=== PATIENT | male | born 1960 | race Caucasian/White ===

== ENCOUNTER 2019-07-21 17:40 | Inpatient (IN) ==
[2019-07-21] MEDS ORDERED: Isovue-370 500 ML BOTTLE IVP ONE (18:21)
--- NOTE | 2019-07-21 18:31 | Emergency Department Note ---
Disposition Clinical Impression: Osteomyelitis of fifth toe of right foot Disposition: Admitted As Inpatient Condition: Fair Referrals: Delphine Taylor CNP [Primary Care Provider] - Forms: ED Satisfaction Letter Time of Disposition: 20:34 General Adult HPI - General Chief complaint: ED Recheck/Abnormal Lab/Rx Stated complaint: Infection right toe Time Seen by Provider: 07/21/19 17:58 Nursing Notes Reviewed: Yes Vital Signs Reviewed: Yes - History of Present Illness Pain Scale: 0 - Related Data Home Medications Medication Instructions Recorded Confirmed Atorvastatin [Lipitor] 80 mg PO HS 07/12/17 07/21/19 Clopidogrel [Plavix] 75 mg PO DAILY 07/12/17 07/21/19 Icosapent Ethyl [Vascepa] 1 gm PO BID 07/12/17 07/21/19 Insulin Glargine,Hum.rec.anlog 40 unit SQ HS 07/12/17 07/21/19 [Lantus Solostar] Lisinopril [Zestril] 20 mg PO DAILY 07/12/17 07/21/19 Pregabalin [Lyrica] 300 mg PO BID 07/12/17 07/21/19 metFORMIN [Glucophage] 1,000 mg PO BIDWM 07/12/17 07/21/19 Previous Rx's Medication Instructions Recorded Sulfamethoxazole/Trimeth DS 1 each PO BID #20 tablet 10/25/17 [Bactrim DS] cephALEXin [Keflex] 500 mg PO QID #40 capsule 02/06/18 Ciprofloxacin HCl [Cipro] 500 mg PO BID #20 tablet 09/10/18 Doxycycline 100 mg PO BID #20 capsule 09/10/18 Allergies Allergy/AdvReac Type Severity Reaction Status Date / Time No Known Allergies Allergy Verified 07/21/19 17:43 Past Medical History - Past Medical History Medical history: Reports: CVA, diabetes, hyperlipidemia, hypertension Surgical history: Reports: no surgical history, LE vascular intervention Psychiatric history: Reports: no psych history - Social History Smoking Status: Current every day smoker Smokeless Tobacco Status: No Alcohol use: Reports: none Drug use: Reports: none Course Vital Signs Temperature 98.2 F 07/21/19 17:44 Pulse Rate 52 07/21/19 17:44 Respiratory Rate 15 07/21/19 17:44 Blood Pressure 168/73 07/21/19 17:44 O2 Sat by Pulse Oximetry 96 07/21/19 17:44 Temperature 98.2 F 07/21/19 19:00 Pulse Rate 56 07/21/19 19:00 Respiratory Rate 16 07/21/19 19:00 Blood Pressure 142/69 07/21/19 19:00 O2 Sat by Pulse Oximetry 97 07/21/19 19:00 Oxygen Delivery Oxygen Delivery Room Air Medical Decision Making - Lab Data Result diagrams: 07/21/19 18:40 07/21/19 18:40 Lab Results 07/21/19 07/21/19 Range/Units 18:40 18:40 WBC 9.0 (4.3-11.1) K/mcL RBC 4.24 (4.19-5.50) M/mcL Hgb 12.9 (12.9-16.9) g/dL Hct 38.0 (37.5-50.1) % MCV 89.6 (83.0-100.0) fL MCH 30.4 (28.0-33.3) pg MCHC 33.9 (31.6-35.5) g/dL RDW 13.3 (11.5-14.5) % Plt Count 326 (140-400) K/mcL MPV 10.7 (9.4-12.4) fL Immature Gran % 0.7 (0-4) % Seg Neutrophils % 65.4 % Lymphocytes % 22.0 % Monocytes % 8.3 % Eosinophils % 2.3 % Basophils % 1.3 % Neutrophils # 5.9 (1.6-8.9) K/mcL Lymphocytes # 2.0 (0.6-4.6) K/mcL Monocytes # 0.7 (0.0-1.3) K/mcL Eosinophils # 0.2 (0.0-0.6) K/mcL Basophils # 0.1 (0.0-0.2) K/mcL Sodium 135 L (136-145) mEq/L Potassium 4.4 (3.5-5.1) mEq/L Chloride 100 (98-107) mEq/L Carbon Dioxide 24 (23-29) mEq/L BUN 13 (6-20) mg/dL Creatinine 0.87 (0.70-1.30) mg/dL Est GFR ( Amer) > 60 (> 60) Est GFR (Non-Af Amer) > 60 (> 60) BUN/Creatinine Ratio 15 (6-26) Glucose 202 H (70-105) mg/dL Calculated Osmolality 286 (280-300) Calcium 8.9 (8.6-10.3) mg/dL Attestation Statement - Attestation Attestation: I examined this patient and my medical decision-making was reviewed with the Resident Physician. I agree with the documented findings, disposition and treatment plan as described except to the extent set forth below. Patient presents to the ED with a concern for osteomyelitis. The patient sees wound care for an infection on his fifth toe of his right foot. He also has an ulcer on his heel. The nurse was concerned that she felt bone and he might have osteomyelitis. 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 Patient states he is currently on antibiotic but he does not know what it is. He has been on it for 12 days. On exam he is in no distress. He has some mild erythema to the entire right fifth digit. Plan. Labs and CT scan. Patient with suspected osteomyelitis. IV antibotics ordered. Will admit. Foot CT 07/21/19 18:21 IMPRESSION: 1. Interval fracture of the distal aspect of the 5th proximal phalanx with question of associated osteolysis. Pathologic fracture with underlying osteomyelitis cannot be excluded in the clinical setting of soft tissue infection of the 5th digit. 2. Subcutaneous edema predominant involving the dorsal soft tissues and extending to involve the 5th digit. No organized fluid collection identified. No subcutaneous gas. 3. Redemonstration of fracture at the middle phalanx of the 3rd toe dating back 2 comparison exam from April 30, 2019. No osseous bridging identified. 4. Mild osteoarthritis. D/ / Chico Benoit MD / Chico Benoit MD Interpreting Provider: Chico Benoit MD
[2019-07-21 18:58] LABS: Basophils # 0.1 K/mcL (0.0-0.2); Basophils % 1.3 %; Eosinophils # 0.2 K/mcL (0.0-0.6); Eosinophils % 2.3 %; Hemoglobin 12.9 g/dL (12.9-16.9); Immature Granulocytes % 0.7 % (0-4); Mean Corpuscular HGB Conc 33.9 g/dL (31.6-35.5); Mean Corpuscular Hemoglobin 30.4 pg (28.0-33.3); Mean Corpuscular Volume 89.6 fL (83.0-100.0); Mean Platelet Volume 10.7 fL (9.4-12.4); Monocytes # 0.7 K/mcL (0.0-1.3); Monocytes % 8.3 %; Neutrophils # 5.9 K/mcL (1.6-8.9); Platelet Count 326 K/mcL (140-400); Red Blood Count 4.24 M/mcL (4.19-5.50); Red Cell Distribution Width 13.3 % (11.5-14.5); Segmented Neutrophils % 65.4 %
[2019-07-21 19:15] LABS: BUN/Creatinine Ratio 15 (6-26); Blood Urea Nitrogen 13 mg/dL (6-20); Calcium 8.9 mg/dL (8.6-10.3); Carbon Dioxide 24 mEq/L (23-29); Chloride 100 mEq/L (98-107); Glucose 202 mg/dL (70-105); Osmolality,Calculated 286 (280-300); Potassium 4.4 mEq/L (3.5-5.1); Sodium 135 mEq/L (136-145); eGFR For African Americans > 60 (> 60); eGFR For Non-African Americans > 60 (> 60)
--- NOTE | 2019-07-21 20:19 | Emergency Department Note ---
Disposition Clinical Impression: Osteomyelitis of fifth toe of right foot Foot osteomyelitis, right Qualifiers: Osteomyelitis type: unspecified type Qualified Code(s): M86.9 - Osteomyelitis, unspecified Disposition: Admitted As Inpatient Condition: Fair Time of Disposition: 20:26 General Adult HPI - General Chief complaint: ED Recheck/Abnormal Lab/Rx Stated complaint: Infection right toe Time Seen by Provider: 07/21/19 17:58 Source: patient Mode of arrival: ambulatory Limitations: no limitations Nursing Notes Reviewed: Yes Vital Signs Reviewed: Yes - History of Present Illness HPI Narrative: Patient is a 59-year-old male with past medical history of diabetes as well as neuropathic ulcers of the foot is currently follows with wound clinic presents for evaluation with concerns for osteomyelitis. The patient has ulcer to the posterior right he will heal as well as to bilateral edges of the fourth right toe. He was undergoing wound clinic earlier this week and the nurse was concerned that she is able to prop the bone with palpation with a wooden stick in the physician was notified, Dr. Loya and he attempted to get the patient an MRI outpatient however he is unable to get the patient in soon enough and is concerned because the patient has been on antibiotics for the past 2 weeks and his wounds are not improving. Patient denies any fevers or chills or nausea or vomiting. Pain Scale: 0 - Related Data Home Medications Medication Instructions Recorded Confirmed Atorvastatin [Lipitor] 80 mg PO HS 07/12/17 07/21/19 Clopidogrel [Plavix] 75 mg PO DAILY 07/12/17 07/21/19 Icosapent Ethyl [Vascepa] 1 gm PO BID 07/12/17 07/21/19 Insulin Glargine,Hum.rec.anlog 40 unit SQ HS 07/12/17 07/21/19 [Lantus Solostar] Lisinopril [Zestril] 20 mg PO DAILY 07/12/17 07/21/19 Pregabalin [Lyrica] 300 mg PO BID 07/12/17 07/21/19 metFORMIN [Glucophage] 1,000 mg PO BIDWM 07/12/17 07/21/19 Previous Rx's Medication Instructions Recorded Sulfamethoxazole/Trimeth DS 1 each PO BID #20 tablet 10/25/17 [Bactrim DS] cephALEXin [Keflex] 500 mg PO QID #40 capsule 02/06/18 Ciprofloxacin HCl [Cipro] 500 mg PO BID #20 tablet 09/10/18 Doxycycline 100 mg PO BID #20 capsule 09/10/18 Allergies Allergy/AdvReac Type Severity Reaction Status Date / Time No Known Allergies Allergy Verified 07/21/19 17:43 All systems ED: reviewed and negative except as stated. Review of Systems: As Per HPI Constitutional: Denies: fever, chills Musculoskeletal: Reports: other (foot wounds). Denies: back pain, neck pain Past Medical History - Past Medical History Attestation: Yes The following information was validated with the patient. Medical history: Reports: CVA, diabetes, hyperlipidemia, hypertension Surgical history: Reports: no surgical history, LE vascular intervention Psychiatric history: Reports: no psych history - Social History Smoking Status: Current every day smoker Smokeless Tobacco Status: No Alcohol use: Reports: none Drug use: Reports: none Physical Exam CONSTITUTIONAL: Well-appearing; well-nourished; A&O X 3, in no apparent distress HEAD: Normocephalic; atraumatic EYES: PERRL, no scleral icterus NOSE: The nose is normal in appearance without rhinorrhea NECK: No JVD or distended neck veins RESP: Normal chest excursion with respiration; breath sounds clear and equal bilaterally; no wheezes, rhonchi, or rales CARD: Regular rhythm, without murmurs, rub or gallop ABD: Non-distended; non-tender, soft, without rigidity, rebound or guarding,no pulsatile mass CHEST: No pain with palpation SKIN: Normal for age and race; warm and dry without diaphoresis ; no apparent lesions EXTREMITIES: Pulses are 2 plus and equal times 4 extremities, no peripheral edema or calf muscle pain. Ulcers to the heel of the posterior right foot that had no surrounding erythema or drainage. Patient also has ulceration to the medial aspect of the fourth toe on the right foot with no active drainage some mild surrounding erythema and no obvious bone showing at this time. - General General appearance: alert, in no apparent distress Course Course Narrative: Patient is failing outpatient antibiotics over the past 2 weeks which she does not recall the name of and I am having difficulty finding these antibiotics in the medical record. Patient will undergo CT scan this evening for evaluation for approximately is however he regardless and she is failing outpatient antibiotics need to come in for IV antibiotics and an MRI for further evaluation. - Reevaluation(s) Reevaluation #1: Patient admitted to the hospitalists with antibiotic started fossa myelitis with plans for an MRI to evaluate further and they will consult podiatry in the morning for evaluation and discussed with the patient he agrees with that plan. Vital Signs Temperature 98.2 F 07/21/19 17:44 Pulse Rate 52 07/21/19 17:44 Respiratory Rate 15 07/21/19 17:44 Blood Pressure 168/73 07/21/19 17:44 O2 Sat by Pulse Oximetry 96 07/21/19 17:44 Temperature 98.2 F 07/21/19 19:00 Pulse Rate 45 07/21/19 21:21 Respiratory Rate 16 07/21/19 21:21 Blood Pressure 142/65 07/21/19 21:21 O2 Sat by Pulse Oximetry 100 07/21/19 21:21 Oxygen Delivery Oxygen Delivery Room Air Medical Decision Making - Medical Records Medical records reviewed: Yes I reviewed the patient's medical records. - Lab Data Lab results reviewed: Yes I reviewed the patient's lab results. Result diagrams: 07/21/19 18:40 07/21/19 18:40 Lab Results 07/21/19 07/21/19 Range/Units 18:40 18:40 WBC 9.0 (4.3-11.1) K/mcL RBC 4.24 (4.19-5.50) M/mcL Hgb 12.9 (12.9-16.9) g/dL Hct 38.0 (37.5-50.1) % MCV 89.6 (83.0-100.0) fL MCH 30.4 (28.0-33.3) pg MCHC 33.9 (31.6-35.5) g/dL RDW 13.3 (11.5-14.5) % Plt Count 326 (140-400) K/mcL MPV 10.7 (9.4-12.4) fL Immature Gran % 0.7 (0-4) % Seg Neutrophils % 65.4 % Lymphocytes % 22.0 % Monocytes % 8.3 % Eosinophils % 2.3 % Basophils % 1.3 % Neutrophils # 5.9 (1.6-8.9) K/mcL Lymphocytes # 2.0 (0.6-4.6) K/mcL Monocytes # 0.7 (0.0-1.3) K/mcL Eosinophils # 0.2 (0.0-0.6) K/mcL Basophils # 0.1 (0.0-0.2) K/mcL Sodium 135 L (136-145) mEq/L Potassium 4.4 (3.5-5.1) mEq/L Chloride 100 (98-107) mEq/L Carbon Dioxide 24 (23-29) mEq/L BUN 13 (6-20) mg/dL Creatinine 0.87 (0.70-1.30) mg/dL Est GFR ( Amer) > 60 (> 60) Est GFR (Non-Af Amer) > 60 (> 60) BUN/Creatinine Ratio 15 (6-26) Glucose 202 H (70-105) mg/dL Calculated Osmolality 286 (280-300) Calcium 8.9 (8.6-10.3) mg/dL - Radiology Data Radiology results reviewed: Yes I reviewed the patient's radiology results. Foot CT 07/21/19 18:21 IMPRESSION: 1. Interval fracture of the distal aspect of the 5th proximal phalanx with question of associated osteolysis. Pathologic fracture with underlying osteomyelitis cannot be excluded in the clinical setting of soft tissue infection of the 5th digit. 2. Subcutaneous edema predominant involving the dorsal soft tissues and extending to involve the 5th digit. No organized fluid collection identified. No subcutaneous gas. 3. Redemonstration of fracture at the middle phalanx of the 3rd toe dating back 2 comparison exam from April 30, 2019. No osseous bridging identified. 4. Mild osteoarthritis. D/ / Chico Benoit MD / Chico Benoit MD Interpreting Provider: Chico Benoit MD
[2019-07-21] MEDS ORDERED: cefTRIAXone 2,000 MG in Water for inj. (sterile) 20 ML IVP ONE (20:24)
[2019-07-21] MEDS: 0.9 % Sodium Chloride 1,000 ML IVC SCH (23:30)
[2019-07-22] MEDS ORDERED: Ondansetron 4 MG/2 ML VIAL IVP PRN (02:15)
[2019-07-22] MEDS ORDERED: D5% in Water 1,000 ML IVC PRN ×3 (02:15→16:18)
[2019-07-22] MEDS ORDERED: Dextrose Gel 15 GM/37.5 ML TUBE PO PRN ×6 (02:15→16:18)
[2019-07-22] MEDS ORDERED: Naloxone 0.4 MG/ML INJ IVP PRN (02:15)
[2019-07-22] MEDS ORDERED: traMADol 50 MG TABLET PO PRN (02:15)
[2019-07-22] MEDS ORDERED: Acetaminophen 325 MG TABLET PO PRN (02:15)
[2019-07-22] MEDS ORDERED: *HR* Dextrose 50 % in Water (Syg) 50 ML SYRINGE IVP PRN ×3 (02:15→16:18)
--- NOTE | 2019-07-22 02:57 | Internal Med History&Physical ---
Date of Encounter: 07/22/19 Time of Encounter: 01:00 Internal Medicine - H&P: HPI Chief complaint: foot ulcer/infection Admitted From: Emergency Dept Plans for Post Hospital Care: Home History of present illness: Mr. Santana is a 59 year old male who presents to the ER under the advice of his wound care physician and nurse. He was seen by the quality review specialist yesterday and then advised by his wound care nurse to go to ER today for IV antibiotics, workup, and likely surgical intervention. He therefore presents the ER for further evaluation. Workup in ER revealed normal labs but imaging was concerning for possible osteomyelitis and pathologic fifth toe fracture. He was therefore admitted to hospitalist service with podiatry consultation. Upon my assessment of the patient, patient is resting in bed comfortably. He denies any complaints. He denies having any fevers, chills, or night sweats. His left foot is in a cast and has been recasted multiple times over the last year. He does have an open wound to his right fifth toe and has small ulceration. He has essentially no to minimal sensation of his feet bilaterally. He is diabetic and has been poorly controlled for years. He states he's been following with wound care clinic as directed. He denies any recent trauma or injury to his feet that he is aware of. Past Med Surg Social Fam HX - Past Medical History Attestation: Yes The following information was validated with the patient. Source: patient, old records reviewed Medical history: coronary artery disease, CVA, diabetes, hyperlipidemia, hypertension, myocardial infarction Psychiatric history: no psych history - Past Surgical History Surgical History: angioplasty/stent, LE vascular intervention Additional surgical history: toe amputation - Social History Smoking Status: Current every day smoker Smokeless Tobacco Status: No Alcohol use: none Drug use: none Current living situation: Home, With Family Activity Level: Independent ambulation Recent Out of Country Travel Within the Last 8 Weeks: No - Family History Mother Hx Family Endocrine Disorder: Yes (DM) Father Living Status: Hx Family Cancer: Yes (prostate) Internal Medicine - H&P: Meds Atorvastatin [Lipitor] 80 mg PO HS 07/12/17 [History] Clopidogrel [Plavix] 75 mg PO DAILY 07/12/17 [History] Icosapent Ethyl [Vascepa] 1 gm PO BID 07/12/17 [History] Insulin Glargine,Hum.rec.anlog [Lantus Solostar] 40 unit SQ HS 07/12/17 [History] Lisinopril [Zestril] 20 mg PO DAILY 07/12/17 [History] Pregabalin [Lyrica] 300 mg PO BID 07/12/17 [History] metFORMIN [Glucophage] 1,000 mg PO BIDWM 07/12/17 [History] Sulfamethoxazole/Trimeth DS [Bactrim DS] 1 each PO BID #20 tablet 10/25/17 [Rx] cephALEXin [Keflex] 500 mg PO QID #40 capsule 02/06/18 [Rx] Ciprofloxacin HCl [Cipro] 500 mg PO BID #20 tablet 09/10/18 [Rx] Doxycycline 100 mg PO BID #20 capsule 09/10/18 [Rx] Allergy/AdvReac Type Severity Reaction Status Date / Time No Known Allergies Allergy Verified 07/21/19 17:43 - Constitutional Constitutional: no chills, no fever(s), no night sweats - EENT Eyes: no blurry vision, no change in vision Ears: no ear pain, no tinnitus Nose, mouth and throat: no nasal congestion, no sinus pressure, no sore throat - Cardiovascular Cardiovascular ROS IM: no chest pain, no dyspnea, no orthopnea, no paroxysmal nocturnal dyspnea - Respiratory Respiratory: no cough, no chest congestion, no excessive phlegm production - Gastrointestinal Gastrointestinal: no abdominal pain, no diarrhea, no hematemesis, no hematochezia, no vomiting - Genitourinary Genitourinary ROS male: no dysuria, no flank pain - Musculoskeletal Musculoskeletal ROS IM: no arthralgias, no back pain - Integumentary Integumentary IM: no rash, no jaundice - Neurological Neurological ROS: numbness (feet), no dizziness, no focal weakness, no frequent falls, no headache(s) - Psychiatric Psychiatric: no anxiety, no depression - Endocrine Endocrine IM: no polydipsia, no polyphagia, no polyuria - Allergic/Immunologic Allergic/Immunologic: no GI upset with certain foods - Constitutional Vitals: Temp Pulse Resp BP Pulse Ox 98.1 F 47 18 170/84 95 07/22/19 02:32 07/22/19 02:32 07/22/19 02:32 07/22/19 02:32 07/22/19 02:32 General appearance: Present: cooperative, A&O X 3, pleasant, no acute distress, answers questions appropriately Exam: see below - Head Head exam: Present: atraumatic, normal inspection - Eye Eye exam: Present: EOMI, PERRL. Absent: scleral icterus Pupils: Present: normal accommodation - ENT ENT exam: Present: mucous membranes dry, normal exam, normal oropharynx - Neck Neck exam general surgery: Present: full ROM, supple, trachea midline. Absent: lymphadenopathy, tenderness, nuchal rigidity, thyromegaly - Respiratory Respiratory exam: Present: CTAB. Absent: chest wall tenderness, rales, rhonchi, wheezes - Cardiovascular Cardiovascular exam: Present: bradycardia, distant heart sounds, +S1, +S2, systolic murmur. Absent: diastolic murmur Additional comments: HR 50's - GI/Abdominal GI/Abdominal exam: Present: normal bowel sounds, soft. Absent: guarding, hepatomegaly, mass, rebound, splenomegaly, tenderness - Extremities Exam Extremities exam: Present: full ROM, normal capillary refill, warm, radial pulses palpable and symmetrical. Absent: calf tenderness, tenderness Additional comments: left foot casted; right 5th toe with ulceration, swelling, and mild redness between 4th/5th digits - Back Exam Back exam: Absent: CVA tenderness (L), CVA tenderness (R) - Neurological Exam Neurological exam: Present: alert, CN II-XII intact, motor sensory deficit (minimal to no sensation in feet), strengths equal and symetr throughout - Psychiatric Psychiatric exam: Present: flat affect - Skin Skin exam: Present: dry, warm. Absent: rash Internal Med - H&P Results - Labs CBC & Chem 7: 07/21/19 18:40 07/21/19 18:40 Labs: Short CBC 07/21/19 Range/Units 18:40 WBC 9.0 (4.3-11.1) K/mcL Hgb 12.9 (12.9-16.9) g/dL Hct 38.0 (37.5-50.1) % Plt Count 326 (140-400) K/mcL Neutrophils # 5.9 (1.6-8.9) K/mcL BMP 07/21/19 18:40 Sodium 135 L Potassium 4.4 Chloride 100 Carbon Dioxide 24 BUN 13 Creatinine 0.87 Glucose 202 H Calcium 8.9 - Impressions ITS Impressions Foot CT 07/21/19 18:21 IMPRESSION: 1. Interval fracture of the distal aspect of the 5th proximal phalanx with question of associated osteolysis. Pathologic fracture with underlying osteomyelitis cannot be excluded in the clinical setting of soft tissue infection of the 5th digit. 2. Subcutaneous edema predominant involving the dorsal soft tissues and extending to involve the 5th digit. No organized fluid collection identified. No subcutaneous gas. 3. Redemonstration of fracture at the middle phalanx of the 3rd toe dating back 2 comparison exam from April 30, 2019. No osseous bridging identified. 4. Mild osteoarthritis. D/ / Chico Benoit MD / Chico Benoit MD Interpreting Provider: Chico Benoit MD - Assessment and Plan (1) Foot osteomyelitis, right Current Visit: Yes Status: Suspected Assessment and plan: 1. Blood cultures obtained. 2. Continue IV Vancomycin and Zosyn. 3. Consult Podiatry. 4. May need MRI imaging after podiatry evaluation. Qualifiers: Osteomyelitis type: unspecified type Qualified Code(s): M86.9 - Osteomyelitis, unspecified (2) CAD (coronary artery disease) Current Visit: Yes Status: Chronic Assessment and plan: 1. Monitor on telemetry and obtain baseline EKG. 2. Resume home meds as appropriate. 3. No current symptoms or complaints to suggest angina. Qualifiers: Coronary Disease-Associated Artery/Lesion type: [place] artery [place] vs. transplanted heart: [place] heart Associated angina: without angina Qualified Code(s): I25.10 - Atherosclerotic heart disease of [place] coronary artery without angina pectoris (3) Diabetic ulcer of foot associated with diabetes mellitus due to underlying condition, limited to breakdown of skin Current Visit: Yes Status: Chronic Assessment and plan: 1. Will place on SSI and basal insulin. 2. Monitor glucose and adjust insulin accordingly. 3. Podiatry consult, imaging, and treatment as above. Qualifiers: Diabetic foot ulcer location: toe Laterality: right Qualified Code(s): E08.621 - Diabetes mellitus due to underlying condition with foot ulcer; L97.511 - Non-pressure chronic ulcer of other part of right foot limited to breakdown of skin (4) Diabetes 1.5, managed as type 2 Current Visit: Yes Status: Chronic Assessment and plan: 1. SSI and basal insulin per home dosing. 2. Monitor glucose and adjust accordingly. (5) DVT prophylaxis Current Visit: Yes Status: Acute Assessment and plan: 1. Heparin SQ.
[2019-07-22 03:26] LABS: Basophils # 0.1 K/mcL (0.0-0.2); Basophils % 1.4 %; Eosinophils # 0.3 K/mcL (0.0-0.6); Eosinophils % 3.2 %; Hematocrit 37.7 % (37.5-50.1); Immature Granulocytes % 0.7 % (0-4); Lymphocytes # 2.8 K/mcL (0.6-4.6); Lymphocytes % 33.5 %; Mean Corpuscular HGB Conc 34.5 g/dL (31.6-35.5); Mean Corpuscular Hemoglobin 30.7 pg (28.0-33.3); Mean Corpuscular Volume 89.1 fL (83.0-100.0); Mean Platelet Volume 10.9 fL (9.4-12.4); Monocytes # 0.9 K/mcL (0.0-1.3); Monocytes % 10.6 %; Neutrophils # 4.3 K/mcL (1.6-8.9); Platelet Count 329 K/mcL (140-400); Red Blood Count 4.23 M/mcL (4.19-5.50); Red Cell Distribution Width 13.2 % (11.5-14.5); Segmented Neutrophils % 50.6 %; White Blood Count 8.4 K/mcL (4.3-11.1)
[2019-07-22 03:33] LABS: INR 1.1; Prothrombin Time 12.6 Seconds (9.4-12.1)
[2019-07-22 03:36] LABS: Activated Partial Thrombo Time 33.7 Seconds (26.0-36.0)
[2019-07-22 03:46] LABS: Alanine Aminotransferase 17 Units/L (7-52); Albumin 3.7 g/dL (3.5-5.7); Albumin/Globulin Ratio 1.3 (1.1-2.2); Alkaline Phosphatase 77 Units/L (34-104); Aspartate Amino Transferase 16 Units/L (13-39); BUN/Creatinine Ratio 15 (6-26); Bilirubin,Total 0.5 mg/dL (0.3-1.0); Blood Urea Nitrogen 11 mg/dL (6-20); Carbon Dioxide 23 mEq/L (23-29); Chloride 105 mEq/L (98-107); Globulin 2.8 g/dL (2.4-3.5); Glucose 100 mg/dL (70-105); Magnesium 1.7 mg/dL (1.6-2.6); Osmolality,Calculated 279 (280-300); Sodium 135 mEq/L (136-145); Total Protein 6.5 g/dL (6.4-8.9); eGFR For African Americans > 60 (> 60); eGFR For Non-African Americans > 60 (> 60)
[2019-07-22] MEDS: Insulin LISPRO 300 UNITS/3 ML VIAL SQ SCH ×4 (08:12→22:10)
[2019-07-22] MEDS: Piperacillin/Tazobactam 3.375 GM in 0.9 % Sodium Chloride Mini Bag 100 ML IVPB SCH ×3 (08:27→23:36)
[2019-07-22] MEDS: Pregabalin 75 MG CAPSULE PO SCH ×2 (08:28→22:11)
[2019-07-22] MEDS: *HR* Heparin 5,000 UNIT/ML VIAL SQ SCH ×2 (08:28→18:56)
[2019-07-22] MEDS: Lisinopril 20 MG TABLET PO SCH (08:28)
[2019-07-22] MEDS: 0.9 % Sodium Chloride 1,000 ML IVC SCH ×2 (08:32→22:11)
[2019-07-22 09:16] LABS: C-Reactive Protein < 5 mg/L (Less than 10)
[2019-07-22 10:54] LABS: Estimated Average Glucose 163 mg/dl
--- NOTE | 2019-07-22 11:16 | Event Note ---
Date of Encounter: 07/22/19 Time of Encounter: 11:14 Patient lying down in bed. Comfortable. To be seen by podiatry. CT of the right foot shows possible osteomyelitis and patient is receiving IV antibiotics. Continue current plan of care. ESR and CRP are not significantly elevated. Consider MRI.
--- NOTE | 2019-07-22 11:17 | Podiatry Consult Note ---
Date of Encounter: 07/22/19 Time of Encounter: 11:00 Assessment and Plan (1) Osteomyelitis of fifth toe of right foot Current visit: Yes Status: Acute ASSESSMENT: Ulceration of the 5th digit of the right foot with associated osteomyelitis PLAN: Assessment complete at bedside CT reviewed- osteomyelitis of the proximal phalynx of the 5th digit WBC 9.0, ESR 20 and CRP <5 A1c 7.3 After a thorough discussion with the patient decision was made to amputate the right 5th digit Surgical procedure discussed as well as expected outcomes and recovery Discussed all risk factors including but not limited to continued infection, return to surgery, loss of blood, pain, nerve damage, blood clot, pneumonia, partial loss of foot, loss of limb, sepsis, . Verbalizes complete understanding and voices no concerns All questions were answered at bedside Consent was obtained and placed to chart. Continue with IV antibiotics vanc and zosyn at this time Toe was cleansed with saline Painted with betadine adaptic 4x4 and kerlix bulk dressing applied Ankle brachial index - Right 0.54 Spoke with Man who recommended Tcp02 (ordered) and if these are consistent with healing to proceed with surgery and vascular would follow post op to optimize blood flow. Consult vascular to optimize bloodflow- call was completed already Foot CT 07/21/19 18:21 IMPRESSION: 1. Interval fracture of the distal aspect of the 5th proximal phalanx with question of associated osteolysis. Pathologic fracture with underlying osteomyelitis cannot be excluded in the clinical setting of soft tissue infection of the 5th digit. 2. Subcutaneous edema predominant involving the dorsal soft tissues and extending to involve the 5th digit. No organized fluid collection identified. No subcutaneous gas. 3. Redemonstration of fracture at the middle phalanx of the 3rd toe dating back 2 comparison exam from April 30, 2019. No osseous bridging identified. 4. Mild osteoarthritis. D/ / Chico Benoit MD / Chico Benoit MD Interpreting Provider: Chico Benoit MD History of Present Illness HPI: Mr. Santana is a 59 year old male who presents to the ER following his wound care visit in [place]. He is followed by in [place]. Patient was sent to the ED for evaluation and IV antibiotics and possible surgical intervention. Labwork, blood cultures and imaging was obtained in the ED. CT scan concerning for possible osteomyelitis and pathologic fifth toe fracture. Patient was started on vanc and zosyn and admitted for further evaluation Patient resting comfortably in bed on arrival He denies any complaints. He denies having any fevers, chills, or night sweats. Denies any pain. Patient is completely neuropathic and without sensation to his feet. His left foot is in a cast and has been recasted multiple times over the last year for charcot management of the left foot. He does have an open wound to his right fifth toe and has small ulceration. Patient reports he thinks his glucose is under decent control with a a1c "around 7" states that due to his stroke and left sided wea kness he is unable to check his glucose easily. He states he's been following with wound care clinic as directed. He denies any recent trauma or injury to his feet that he is aware of. PMH of DM with neuropathy and charcot arthropathy, DVT, CVA with residual left sided weakness and 1 PPD current smoking history Past Med Surg Social Fam HX - Past Medical History Medical history: coronary artery disease, CVA, diabetes, hyperlipidemia, hypertension, myocardial infarction Psychiatric history: no psych history - Past Surgical History Surgical History: angioplasty/stent, LE vascular intervention Additional surgical history: toe amputation - Social History Smoking Status: Current every day smoker Smokeless Tobacco Status: No Alcohol use: none Drug use: none - Family History Mother Hx Family Endocrine Disorder: Yes (DM) Father Living Status: Hx Family Cancer: Yes (prostate) Medications and Allergies Atorvastatin [Lipitor] 80 mg PO HS 07/12/17 [History] Clopidogrel [Plavix] 75 mg PO DAILY 07/12/17 [History] Icosapent Ethyl [Vascepa] 1 gm PO BID 07/12/17 [History] Insulin Glargine,Hum.rec.anlog [Lantus Solostar] 40 unit SQ HS 07/12/17 [History] Lisinopril [Zestril] 20 mg PO DAILY 07/12/17 [History] Pregabalin [Lyrica] 300 mg PO BID 07/12/17 [History] metFORMIN [Glucophage] 1,000 mg PO BIDWM 07/12/17 [History] Sulfamethoxazole/Trimeth DS [Bactrim DS] 1 each PO BID #20 tablet 10/25/17 [Rx] cephALEXin [Keflex] 500 mg PO QID #40 capsule 02/06/18 [Rx] Ciprofloxacin HCl [Cipro] 500 mg PO BID #20 tablet 09/10/18 [Rx] Doxycycline 100 mg PO BID #20 capsule 09/10/18 [Rx] Allergy/AdvReac Type Severity Reaction Status Date / Time No Known Allergies Allergy Verified 07/21/19 17:43 All Systems Reviewed: as per HPI Physical Exam - Constitutional Vitals: Temp Pulse Resp BP Pulse Ox 97.8 F 83 18 156/75 99 07/22/19 11:08 07/22/19 11:08 07/22/19 11:08 07/22/19 11:08 07/22/19 11:08 Exam: CONSTITUTIONAL: awake alert and oriented VASCULAR: non palpable pulses dp/pt , foot warm toes to tibia, no calf pain with manual compression, cap refill <3 seconds NEUROLOGICAL: absent sensation to light and moderate touch. There is a complete loss of protective sensation MUSCULOSKELETAL: muscle strength 5/5 and equal bilaterally SKIN: There are 2 small open ulcerations to the dorsal aspect of toe #5 right, there is associated edema erythema and warmth of toe. There is mild erythema to the dorsal aspect of the right foot. There is scaling of the skin surrounding the 5th digit. There is scant yellow purulent drainage. There are no other open ulcerations noted to the foot. Results - Labs Result Diagrams: 07/22/19 02:47 07/22/19 02:47 Labs: Abnormal lab results ESR 20 mm/hr (0-10) H 07/22/19 02:47 PT 12.6 Seconds (9.4-12.1) H 07/22/19 02:47 Sodium 135 mEq/L (136-145) L 07/22/19 02:47 Glucose 202 mg/dL (70-105) H 07/21/19 18:40 POC Glucose 113 mg/dL (70-99) H 07/22/19 07:07 Hemoglobin A1c 7.3 % (-5.6) H 07/22/19 02:47 Calculated Osmolality 279 (280-300) L 07/22/19 02:47 H & H 07/21/19 07/22/19 Range/Units 18:40 02:47 Hgb 12.9 13.0 (12.9-16.9) g/dL Hct 38.0 37.7 (37.5-50.1) % All other labs normal. Consult Discharge Plan - Plan Referrals: Delphine Taylor, JAKE [Primary Care Provider] -
--- NOTE | 2019-07-22 14:49 | Electrocardiograph Report ---
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
--- NOTE | 2019-07-22 16:29 | Vascular/Endovasc Consult Note ---
Date of Encounter: 07/22/19 Time of Encounter: 16:25 Assessment and Plan (1) Diabetes 1.5, managed as type 2 Current Visit: Yes Status: Chronic Patient has chronic diabetes. (2) Peripheral angiopathy Current Visit: Yes Status: Chronic Known peripheral vascular occlusive disease. Ankle brachial index is 0.54 on the right. Plan on antrum and possible right lower extremity endovascular intervention tomorrow morning. (3) Tobacco abuse Current Visit: No Status: Chronic Patient has chronic tobacco abuse (4) Osteomyelitis of fifth toe of right foot Current Visit: Yes Status: Acute CT scan suggests osteomyelitis of right foot. Ankle-brachial index is diminished. Plan on angiography and possible endovascular intervention tomorrow morning. - History of Present Illness Consult date: 07/22/19 Consult reason: PAD/right foot wound possible osteomyelitis Chief complaint: Nonhealing right foot wound possible bone infection History of present illness: Mr. Santana is a 59 year old male Who was admitted via the emergency room. This patient has a long and complicated history but essentially was found to have a deteriorating right fifth toe wound. He has been treated via the [place] wound clinic. He was advised by the staff there to seek further attention and care for intravenous antibiotics. When he was seen in the emergency room a CT scan was performed which was suggestive of osteomyelitis with other pathological fractures. Empiric intravenous vancomycin and Zosyn antibiotics were prescribed. The patient was then admitted with podiatry intending to proceed on with a right fifth toe amputation today. An ankle brachial index was obtained and demonstrated an KASEY of only 0.54 on the right. Therefore vascular surgery was asked to see the patient in an attempt to augment vascular flow. The patient's left foot has a pressure ulcer and he is in a cast which has been changed multiple times over the past year or more for care of this wound. The patient had suffered a right hemispheric stroke on July 08, 2017. This left him with a dense left hemiplegia. He essentially has no use of the left upper extremity and minimal use of the left lower extremity. The patient has been evaluated in the past at [facility] for vascular issues. He states about [address] Elam performed an angiogram but was unable to pass a wire through blockage in the right lower extremity. At that time the angiogram was performed because of lifestyle limiting claudication. He also is followed on a routine basis with yearly carotid artery duplex scans. Past Med Surg Social Fam HX - Past Medical History Medical history: coronary artery disease, CVA (July 2017 with right hemispheric stroke), diabetes, hyperlipidemia, hypertension, myocardial infarction Psychiatric history: no psych history - Past Surgical History Surgical History: angioplasty/stent, LE vascular intervention Additional surgical history: toe amputation - Social History Smoking Status: Current every day smoker Smokeless Tobacco Status: No Alcohol use: none Drug use: none - Family History Mother Hx Family Endocrine Disorder: Yes (DM) Father Living Status: Hx Family Cancer: Yes (prostate) Medications and Allergies Atorvastatin [Lipitor] 80 mg PO HS 07/12/17 [History] Clopidogrel [Plavix] 75 mg PO DAILY 07/12/17 [History] Icosapent Ethyl [Vascepa] 1 gm PO BID 07/12/17 [History] Insulin Glargine,Hum.rec.anlog [Lantus Solostar] 40 unit SQ HS 07/12/17 [History] Lisinopril [Zestril] 20 mg PO DAILY 07/12/17 [History] Pregabalin [Lyrica] 300 mg PO BID 07/12/17 [History] metFORMIN [Glucophage] 1,000 mg PO BIDWM 07/12/17 [History] Sulfamethoxazole/Trimeth DS [Bactrim DS] 1 each PO BID #20 tablet 10/25/17 [Rx] cephALEXin [Keflex] 500 mg PO QID #40 capsule 02/06/18 [Rx] Ciprofloxacin HCl [Cipro] 500 mg PO BID #20 tablet 09/10/18 [Rx] Doxycycline 100 mg PO BID #20 capsule 09/10/18 [Rx] Allergy/AdvReac Type Severity Reaction Status Date / Time No Known Allergies Allergy Verified 07/21/19 17:43 All Systems Review: The remainder of the systems were reviewed and are negative Exam Vital Signs, Last 4 Hours Temp Pulse Resp BP Pulse Ox 07/22/19 16:05 97.8 F 50 18 151/66 96 General: Present: Conversant, No Apparent Distress HEENT: Present: Atraumatic, Normocephaly, Trachea midline Neck: Absent: JVD, Left Carotid bruit, Right Carotid bruit, Tracheal deviation Cardiac: Present: Reg Rate and Rhythm, Normal S1 and S2, No Murmur Lungs: Present: Normal Breath Sounds Neuro: Present: Alert and responsive, Cranial nerves grossly intact, Other (Dense left upper extremity paralysis with flexion contracture at left elbow and left wrist. Left lower extremity is weak and has a cast involving the foot ankle and calf region in position.) Abdomen: Present: Soft, Non-tender. Absent: Masses Vascular: Present: Capillary refill delayed (In right lower extremity), Pulse, absent (Bilateral popliteal pulses are absent. No palpable right ankle pulses.), Pulse, diminished (Diminished right femoral pulse.), Pulse, normal (Left femoral pulse), Other (Patient has a fiberglass cast on left lower extremity. Patient has a Kerlix roll dressing on right foot and ankle region.) Skin: Present: No rashes noted on visualized skin Consult Discharge Plan - Plan Referrals: Delphine Taylor CNP [Primary Care Provider] -
[2019-07-22 17:17] LABS: Thyroid Stimulating Hormone 1.35 mcIU/mL (0.340-5.600)
[2019-07-22] MEDS ORDERED: Insulin LISPRO 300 UNITS/3 ML VIAL SQ SCH ×2 (18:00→21:00)
[2019-07-22] MEDS: Insulin DETEMIR 100 UNIT/ML X5UNITS SQ SCH (22:10)
[2019-07-23 01:20] LABS: Basophils # 0.1 K/mcL (0.0-0.2); Basophils % 1.7 %; Eosinophils # 0.3 K/mcL (0.0-0.6); Eosinophils % 3.6 %; Hematocrit 36.3 % (37.5-50.1); Hemoglobin 12.4 g/dL (12.9-16.9); Immature Granulocytes % 0.6 % (0-4); Lymphocytes # 2.6 K/mcL (0.6-4.6); Lymphocytes % 37.2 %; Mean Corpuscular HGB Conc 34.2 g/dL (31.6-35.5); Mean Corpuscular Hemoglobin 30.3 pg (28.0-33.3); Mean Corpuscular Volume 88.8 fL (83.0-100.0); Mean Platelet Volume 11.1 fL (9.4-12.4); Monocytes # 0.7 K/mcL (0.0-1.3); Monocytes % 9.6 %; Neutrophils # 3.3 K/mcL (1.6-8.9); Platelet Count 294 K/mcL (140-400); Red Blood Count 4.09 M/mcL (4.19-5.50); Red Cell Distribution Width 13.3 % (11.5-14.5); Segmented Neutrophils % 47.3 %
[2019-07-23 01:40] LABS: BUN/Creatinine Ratio 14 (6-26); Blood Urea Nitrogen 12 mg/dL (6-20); Calcium 8.4 mg/dL (8.6-10.3); Carbon Dioxide 23 mEq/L (23-29); Chloride 105 mEq/L (98-107); Glucose 188 mg/dL (70-105); Osmolality,Calculated 287 (280-300); Potassium 3.8 mEq/L (3.5-5.1); Sodium 136 mEq/L (136-145); eGFR For African Americans > 60 (> 60); eGFR For Non-African Americans > 60 (> 60)
[2019-07-23] MEDS: *HR* Heparin 5,000 UNIT/ML VIAL SQ SCH ×2 (06:16→17:40)
[2019-07-23] MEDS: Insulin LISPRO 300 UNITS/3 ML VIAL SQ SCH ×4 (08:00→20:56)
[2019-07-23] MEDS: Lisinopril 20 MG TABLET PO SCH (08:19)
[2019-07-23] MEDS: Piperacillin/Tazobactam 3.375 GM in 0.9 % Sodium Chloride Mini Bag 100 ML IVPB SCH ×2 (08:19→17:42)
[2019-07-23] MEDS: Pregabalin 75 MG CAPSULE PO SCH ×2 (08:20→20:55)
[2019-07-23] MEDS ORDERED: *HR* Heparin 10,000 UNIT/10 ML VIAL ONE (09:20)
[2019-07-23] MEDS ORDERED: 0.9 % Sodium Chloride 1,000 ML ONE (09:20)
[2019-07-23] MEDS ORDERED: *HR* Midazolam HCl 2 MG/2 ML VIAL ONE (09:29)
[2019-07-23] MEDS ORDERED: *HR* FentaNYL (PF) 100 MCG/2 ML VIAL ONE (09:29)
--- NOTE | 2019-07-23 09:31 | Pre-Sedation Evaluation ---
Pre-sedation evaluation - Pre-sedation checklist Recent Vitals: Last Vital Signs Temp 97.7 F 07/23/19 06:50 Pulse 51 07/23/19 06:50 Resp 18 07/23/19 06:50 BP 128/76 07/23/19 06:50 Pulse Ox 96 07/23/19 06:50 H&P (including ROS) documented in medical record: Yes Previous reaction to sedatives/anesthetics: No Dietary Status: NPO after Midnight Possible difficult airway: No ASA Classification *see protocol: CLASS III-Severe systemic disease Plan of Care: Pt appropriate candidate for procedure/moderate/conscious sedation, Risks/benefits of procedure/sedation discussed w/ patient/family
--- NOTE | 2019-07-23 10:27 | Electrocardiograph Report ---
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
--- NOTE | 2019-07-23 10:36 | Procedure Note ---
Date of procedure: 07/23/19 Pre-op diagnosis: PD/right toe osteomyelitis Post-op diagnosis: same Procedure: Abdominal aortogram Aortogram with bilateral lower extremity runoff Selective right groin angiogram Anesthesia: MAC Surgeon: Marco Eden Was there an assistant professor of biochemistry present: No Estimated blood loss (cc): 0 Specimen: 0 Condition: stable Disposition: floor (Patient will need bypass graft to revascularize right lower extremity.)
--- NOTE | 2019-07-23 11:04 | Invasive Diagnostic Lab Proc ---
Name: Gamaliel Santana Date of Study: 07/23/2019 Date: 1960 Ht: 185.0 in Medical Record#: [id number] Age: 59 Wt: 112 lb Gender: Male BSA: 2.35 Order #: [id number] BMI: 32.72 Physicians Performing MD: Marco Eden MD, FACS Referring MD: Referring MD: Staff Name Position Time In Thee Mckee RN Monitor Bisi Duran RN New Car Inspector Andrés Leon RT (R) Scrub Indications Peripheral Vasc Disease Right foot oseomyelitis Procedures Performed AORTOGRAPHY W/RUNOFF BILAT S&I Pre-Procedure Checklist Informed consent is complete signed and on chart. H&P is on chart. ID band is on and ID verified with patient. Patient NPO for procedure The procedure was described for the patient and questions were answered. Blood Pressure: 180/92 ECG is on chart. Rhythm: Sinus Bradycardia Plan of Care Patient will tolerate the procedure without complications. Adequate level of comfort will be maintained. Hemodynamics will remain stable Patient will recover from procedure without complications. Respiratory function will be maintained. Cardiac rhythm will remain stable. Patient temperature will be maintained. Patient and/or family have verbalized understanding of the procedure. Patient Education Chief Complaint/Reason for Test: Peripheral angiogram Developmental Category: Adult (18-64 years) Learning Barriers: None Education Needs: Procedure Education Method: Verbal Information Taught: Peripheral angiogram Educational Evaluation: Able to repeat information Intravenous Access Time IV Size Location DC'd Fluid/Drip Rate Units RN 20g 1 /" Patent On Arrival 0.9NaCl Allergies No Known Allergies Vital Signs Time BP Systolic BP Diastolic HR O2 Sats ASA 09:26 AM 09:35 AM 09:50 AM 10:05 AM 09:36 AM 180 92 50 99 09:41 AM 179 88 47 97 09:46 AM 174 86 49 95 09:51 AM 170 88 48 95 09:55 AM 172 105 43 94 10:00 AM 178 88 51 95 10:06 AM 168 84 51 95 10:10 AM 175 85 49 94 10:15 AM 183 90 51 95 10:20 AM 184 87 50 96 10:26 AM 179 71 48 94 10:31 AM 178 83 48 95 10:36 AM 181 93 52 96 10:40 AM 93 25 53 95 10:42 AM 181 94 55 94 10:46 AM 178 95 52 94 Procedure Medications Time Medication Dose Units Method Route 09:36 AM Oxygen 2 L/min nasal cannula 09:38 AM Versed 1 mg Intravenous 09:38 AM Fentanyl 50 mcg Intravenous 09:42 AM Lidocaine 2% 10 ml Subcutaneous ASA Classification: CLASS III- Severe systemic disease (i.e. prior AMI, diabetes with vascular complications, morbid obesity) Koko Score Preprocedure Postprocedure Activity 2- Moves 4 extremities sustained head lift Activity 2- Moves 4 extremities sustained head lift Circulation 2- SBP +/= 20 points of pre-anesthetic level Circulation 2- SBP +/= 20 points of pre-anesthetic level Consciousness 2- Awake and alert oriented x 3 Consciousness 2- Awake and alert oriented x 3 O2 Saturation 2- Able to maintain O2 satruation of 92% on room air O2 Saturation 2- Able to maintain O2 satruation of 92% on room air Respiratory 2- Able to deep breathe and cough well Respiratory 2- Able to deep breathe and cough well Total Score 10 Total Score 10 Contrast: Isovue 300- 150ml Contrast Amount: 111 ml Fluoro Dose: 550 mGy Procedure Log Time Note Entered By 09:25 AM Pt arrived to laborer bituminous paving 1 at 09:25 oparker 09:25 AM Thee Mceke RN Position: Monitor Time in: 09:25 oparker 09:25 AM Bisi Duran RN Position: New Car Inspector Time in: 09:25 oparker 09:25 AM Andrés Leon (R) Position: Scrub Time in: 09:25 oparker 09:25 AM Physician arrived 09:25 oparker 09:25 AM Mayur and whitley completed oparker 09:26 AM Sign in performed according to hospital policy. oparker 09:26 AM Time: Is patient comfortable and pain free?: Yes oparker 09:26 AM Time: LOC: 4 = Oriented but drowsy oparker 09:28 AM Procedure start : oparker 09:36 AM Hair removed from procedure site in procedure lab using clippers. Bilateral groin prepped with Chloraprep by Bisi Duran RN, then patient was draped. Skin intact. oparker 09:36 AM 09:36 Oxygen at 2 L/min per nasal cannula by Bisi Duran RN oparharis 09:36 AM Patient charges- Angio tray pack, Pulse Oximetry and ACIST tubing and transducer oparker 09:38 AM 09:38 Versed 1 mg Intravenous Given by Bisi Duran RN oparharis 09:38 AM 09:38 Fentanyl 50 mcg Intravenous Given by Bisi Duran RN oparharis 09:40 AM Time out perfomed oparker 09:45 AM 09:42 10 ml Lidocaine 2% to right groin Subcutaneous Given By Marco Eden MD, FACS oparker 09:45 AM Smart Needle utilized for vascular access at this time oparker 09:48 AM Access obtained in the left femoral artery by percutaneous puncture. 5 Fr. 10 cm Terumo [place] sheath placed in left femoral artery oparker 09:48 AM 0.035 145cm J-wire wire utilized to assist with catheter placement oparker 09:48 AM 5Fr Short pigtail catheter inserted oparker 09:49 AM 4 oparker 09:49 AM Left femoral angiography performed in AP contrast injected 4 mls. oparker 09:50 AM Time: 09:35LOC: 4 = Oriented but drowsy oparker 09:50 AM Time: 09:35 Is patient comfortable and pain free?: Yes oparker 09:51 AM Abdominal aorta angiography performed in AP contrast injected 25 mls. oparker 09:57 AM Abdominal angiogram with runoff completed: 6 ml/sec for a total of 60 mls oparker 10:00 AM Catheter removed oparker 10:00 AM 5Fr Omniflush catheter inserted oparker 10:03 AM Abdominal aorta angiography performed in AP contrast injected 4 mls. oparker 10:05 AM Time: 09:50 Is patient comfortable and pain free?: Yes oparker 10:05 AM Time: 09:50LOC: 4 = Oriented but drowsy oparker 10:05 AM 0.035 260cm Tranquillity-angled wire utilized to assist with catheter placement oparker 10:04 AM Wire removed oparker 10:10 AM Abdominal aorta angiography performed in AP contrast injected 3 mls. oparker 10:09 AM J wire reinserted oparker 10:12 AM Catheter removed oparker 10:12 AM Sheath exchanged for a 6 Fr 45 cm Terumo Destination sheath inserted into left femoral artery oparker 10:18 AM Left deep (profunda) femoral angiography performed in AP contrast injected 4 mls. oparker 10:20 AM Abdominal aorta angiography performed in [place] contrast injected 4 mls. oparker 10:20 AM Time: 10:05LOC: 4 = Oriented but drowsy oparker 10:20 AM Time: 10:05 Is patient comfortable and pain free?: Yes oparker 10:21 AM Wire removed oparker 10:21 AM glidewire reinserted oparker 10:28 AM Left deep (profunda) femoral angiography performed in AP contrast injected 4 mls. oparker 10:29 AM Wire removed oparker 10:29 AM Catheter removed oparker 10:29 AM Procedure completed at 10:29 oparker 10:30 AM Sign Out completed: Radiation Dose 549.54 mGy Fluoro Time: 12.8 minutes. Isovue 300- 150ml contrast 111 ml given by Marco Eden MD, FACS. Complications: None. Confirmed administered medications:Yes Sedation minutes 51 oparker 10:30 AM Estimated Blood Loss: less than 20cc oparker 10:30 AM Post Blood Pressure: 179/71 oparker 10:30 AM Post EKG: Sinus Bradycardia oparker 10:31 AM 10:30 Post Pulses: Rt DP 1+. oparker 10:31 AM Information taught: Peripheral angiogram and V+Pad oparker 10:31 AM Education needs: Procedure, Plan of Care, and Disease Process oparker 10:31 AM Learning barriers: None oparker 10:31 AM Education methods: Verbal oparker 10:31 AM Education evaluation: Able to repeat information oparker 10:31 AM Patient pain level 0/10 oparker 10:32 AM Right SFA ACCOUNTS PAYABLE LEAD noted br Dr. Eden oparker 10:32 AM Left mid SFA 75% occluded. oparker 09:26 AM ASA Class CLASS III- Severe systemic disease (i.e. prior AMI, diabetes with vascular complications, morbid obesity) oparker 10:20 AM 5Fr 65cm Glidecath Angled-Taper guide catheter advanced oparker 10:40 AM Family placed in consult room. oparker 10:47 AM Report given to Neli FREEMAN. Pt taken to [facility], Room # 32 10:47 oparker 10:49 AM Site status No bleeding/hematoma - Lt Groin as reported by Bisi Duran RN at 10:49 oparker 10:49 AM Opsite applied oparker 10:55 AM Patient out of room 10:55 oparker 09:32 AM PVIStat 09:35 AM Vitals capture started with the following parameters, Patient=Adult, Interval=5 min, Initial Wdrucwnw=533 mmHg, Deflation Rate=5 mmHg, Cuff placed on Left Arm 09:36 AM HR=50 bpm, WKZV=106/92 mmhg, SpO2=99.0 %, Resp=14 B/min 09:41 AM Recorded ECG: HR=48 Condition=Condition 1 09:41 AM HR=47 bpm, OGKP=942/88 mmhg, SpO2=97.0 %, Resp=19 B/min 09:46 AM HR=49 bpm, QWJT=776/86 mmhg, SpO2=95.0 %, Resp=16 B/min 09:51 AM HR=48 bpm, DPHT=811/88 mmhg, SpO2=95.0 %, Resp=8 B/min 09:55 AM HR=43 bpm, LRPO=101/105 mmhg, SpO2=94.0 %, Resp=13 B/min 10:00 AM HR=51 bpm, JKNI=882/88 mmhg, SpO2=95.0 %, Resp=14 B/min 10:06 AM HR=51 bpm, FAEE=620/84 mmhg, SpO2=95.0 %, Resp=26 B/min 10:10 AM HR=49 bpm, HWQX=639/85 mmhg, SpO2=94.0 %, Resp=13 B/min 10:15 AM HR=51 bpm, VJUB=310/90 mmhg, SpO2=95.0 %, Resp=11 B/min 10:20 AM HR=50 bpm, ISYQ=325/87 mmhg, SpO2=96.0 %, Resp=12 B/min 10:26 AM HR=48 bpm, FVCB=791/71 mmhg, SpO2=94.0 %, Resp=12 B/min 10:31 AM HR=48 bpm, ZQIV=270/83 mmhg, SpO2=95 %, Resp=11 B/min 10:36 AM HR=52 bpm, FUAG=289/93 mmhg, SpO2=96.0 %, Resp=22 B/min 10:40 AM HR=53 bpm, NIBP=93/25 mmhg, SpO2=95.0 %, Resp=12 B/min 10:41 AM NIBP STAT measurement started. 10:42 AM HR=55 bpm, TPJZ=108/94 mmhg, SpO2=94 %, Resp=14 B/min 10:46 AM HR=52 bpm, UOWD=112/95 mmhg, SpO2=94.0 %, Resp=11 B/min Post Procedure Information Blood Pressure: 179/71 mmHg Rhythm: Sinus Bradycardia Post procedure instructions given Report Given To: [facility] Site Checks Time Location Status Staff Sheath In? Note 10:49:00 AM Lt Groin No bleeding/hematoma Bisi Duran RN Pulses Time Site Pre Procedure Post Procedure Note Bilateral DP & PT Doppler 10:30:00 AM Rt DP 1+ Updated by Thee Mckee RN on 07/23/2019 10:57:42 AM electronically signed on 07/23/2019 10:58:03 AM with status of Final
[2019-07-23] MEDS ORDERED: Metoprolol XL (24 HR) Succ 25 MG TAB.ER.24H PO SCH (11:29)
[2019-07-23] MEDS: amLODIPine 5 MG TABLET PO SCH (12:32)
--- NOTE | 2019-07-23 13:39 | Podiatry Progress Note ---
Date of Encounter: 07/23/19 Time of Encounter: 13:00 - Assessment and Plan (1) Osteomyelitis of fifth toe of right foot Current Visit: Yes Status: Acute ASSESSMENT: Ulceration of the 5th digit of the right foot with associated osteomyelitis PLAN: Assessment complete at bedside CT reviewed- osteomyelitis of the proximal phalynx of the 5th digit WBC 7.0, ESR 20 and CRP <5 A1c 7.3 Patient underwent Abdominal aortogram Aortogram with bilateral lower extremity runoff Selective right groin angiogram with Meek today No intervention was possible and patient will need to go for a fem pop bypass on friday Podiatry will await vascular intervention and then wait 2-3 days after intervention prior to surgical intervention for amputation of toe Continue with IV antibiotics vanc and zosyn at this time Toe was cleansed with saline Painted with betadine adaptic 4x4 and kerlix bulk dressing applied Dressing change orders placed Foot CT 07/21/19 18:21 IMPRESSION: 1. Interval fracture of the distal aspect of the 5th proximal phalanx with question of associated osteolysis. Pathologic fracture with underlying osteomyelitis cannot be excluded in the clinical setting of soft tissue infection of the 5th digit. 2. Subcutaneous edema predominant involving the dorsal soft tissues and extending to involve the 5th digit. No organized fluid collection identified. No subcutaneous gas. 3. Redemonstration of fracture at the middle phalanx of the 3rd toe dating back 2 comparison exam from April 30, 2019. No osseous bridging identified. 4. Mild osteoarthritis. D/ / Chico Benoit MD / Ch[place] Benoit MD Interpreting Provider: [place] Benoit MD (2) Diabetic ulcer of left foot Current Visit: Yes Status: Acute CHRONIC ULCERATION TO THE LATERAL ASPECT OF THE LEFT FOOT PLAN: Non contact cast removed to left foot- removed at recommendations of who is patients wound care physician Assessment complete Chronic wound, shallow, without clinical evidence of infection Apply allevyn and dry bulk dressing for protection May change every 72 hours. Qualifiers: Qualified Code(s): E11.621 - Type 2 diabetes mellitus with foot ulcer; L97.421 - Non-pressure chronic ulcer of left heel and midfoot limited to breakdown of skin Subjective Interval history: Patient underwent Abdominal aortogram Aortogram with bilateral lower extremity runoff Selective right groin angiogram per Meek today Resting comfortably , denies needs or pain Dressing intact to RLE Cast to LLE- reports that it is due to be changed today, she contacted 's office and they stated to remove cast and place bulk dressing. Pending surgical intervention per podiatry for osteomyelitis of the 5th digit. Objective - Vital Signs Vital Signs: Vital Signs Temp Pulse Resp BP Pulse Ox 07/23/19 12:29 97.6 F 42 18 164/69 95 07/23/19 11:55 97.7 F 42 16 149/66 97 07/23/19 11:40 97.8 F 46 14 143/64 94 07/23/19 11:25 44 14 174/67 95 07/23/19 11:10 47 170/74 97 07/23/19 06:50 97.7 F 51 18 128/76 96 07/23/19 03:43 97.5 F L 40 18 123/80 97 07/22/19 23:48 14 93 07/22/19 23:14 97.8 F 45 18 132/67 93 07/22/19 22:11 97 07/22/19 19:56 98.8 F 45 20 165/71 97 07/22/19 16:05 97.8 F 50 18 151/66 96 Intake and Output 07/22/19 07/23/19 07/23/19 23:59 07:59 15:59 Intake Total 2140 / 3860 350 / 350 Output Total 800 / 2800 1325 / 1325 Balance 1340 / 1060 350 / -975 -1325 / -975 Intake: IV Fluids 1100 / 2700 350 / 350 0.9 % Sodium Chloride 1,000 ML 1000 / 2000 @ 100 mls/hr IVC .Q10H YENNI Rx#: [id number] Zosyn 3.375 GM In 0.9 % Sodium 100 / 200 100 / 100 Chloride (Mini-Bag +) 100 ML @ 25 mls/hr IVPB Q8HR YENNI Rx#: [id number] Vancocin 1,250 MG In 0.9 % 250 / 250 Sodium Chloride 250 ML @ 166. 667 mls/hr IVPB Q12H YENNI Rx#: [id number] Oral 1040 / 1160 Output: Urine 800 / 2800 1325 / 1325 Other: Meal Dinner NPO Percent of Meal Consumed 95% Weight 112.4 kg Blood Glucose* 129 150 Patient Weight 07/23/19 23:59 Weight 112.4 kg - Exam Exam: CONSTITUTIONAL: awake alert and oriented VASCULAR: non palpable pulses dp/pt , foot warm toes to tibia, no calf pain with manual compression, cap refill <3 seconds NEUROLOGICAL: absent sensation to light and moderate touch. There is a complete loss of protective sensation MUSCULOSKELETAL: muscle strength 5/5 and equal bilaterally SKIN: There are 2 small open ulcerations to the dorsal aspect of toe #5 right, there is associated edema erythema and warmth of toe. There is mild erythema to the dorsal aspect of the right foot. There is scaling of the skin surrounding the 5th digit. There is scant yellow purulent drainage. There are no other open ulcerations noted to the foot. LEFT FOOT: shallow 0.3cmx0.3cm hyperkeratotic lesion with small underlying ulceration to the lateral border of the left foot. There is lateral shift of the midfoot with collapse s/p CVA 12 years ago which is causing rotation of the foot and patient walks on side of foot causing ulceration. Has been wearing a non contact cast which was removed today. no appearance of infection. Wound is healing. without concern at this time. - Lab Result Diagrams: 07/23/19 00:45 07/23/19 00:45 Labs: Abnormal lab results RBC 4.09 M/mcL (4.19-5.50) L 07/23/19 00:45 Hgb 12.4 g/dL (12.9-16.9) L 07/23/19 00:45 Hct 36.3 % (37.5-50.1) L 07/23/19 00:45 ESR 20 mm/hr (0-10) H 07/22/19 02:47 PT 12.6 Seconds (9.4-12.1) H 07/22/19 02:47 Sodium 135 mEq/L (136-145) L 07/22/19 02:47 Glucose 188 mg/dL (70-105) H 07/23/19 00:45 POC Glucose 150 mg/dL (70-99) H 07/23/19 12:00 Hemoglobin A1c 7.3 % (-5.6) H 07/22/19 02:47 Calculated Osmolality 279 (280-300) L 07/22/19 02:47 Calcium 8.4 mg/dL (8.6-10.3) L 07/23/19 00:45 Microbiology, Last 48 Hours 07/21/19 20:58 Blood Culture - Preliminary Peripheral Venipuncture Culture is incubating and being continuously monitored for growth. Final report to follow. 07/21/19 20:58 Blood Culture - Preliminary Peripheral Venipuncture Culture is incubating and being continuously monitored for growth. Final report to follow. Consult Discharge Plan - Plan Referrals: Delphine Taylor CNP [Primary Care Provider] - 08/05/19 2:20 pm Marco Eden MD [Partnered Physician] - 08/16/19 9:45 am (This appointment is in [place] )
--- NOTE | 2019-07-23 14:18 | Cardiology Consult Note ---
<Yinka Holt N - Last Filed: 07/23/19 14:10> Date of Encounter: 07/23/19 Time of Encounter: 14:10 Assessment and Plan (1) Bradycardia Current Visit: Yes Status: Acute 59M with PMH of CAD with stents, diabetes, hypertension, hyperlipidemia, [place], CVA who presents to the ED due to need for further evaluation of foot wound. Plan for Bypass graft to right leg Pt on Toprol XL 25 mg at home which has been stopped Pt currently asymptomatic denying lightheadedness, dizziness, cp, syncope, near syncope, or sob HR was between 55-60 upon examination -Continue to hold Toprol XL -Continue cardiac monitoring -Follow up outpatient for further evaluation after procedure Discussion w patient/family: The assessment and plan as outlined above was discussed with the patient and/or family members who expressed understanding and agreement. All questions were answered. Thank you for involving us in the care of your patient. Please call with any questions. History of Present Illness Consult date: 07/23/19 Chief complaint: Foot infection History of present illness: Mr. Santana is a 59 year old male with PMH of CAD with stents, diabetes, hypertension, hyperlipidemia, [place], CVA who presents to the ED due to need for further evaluation of foot wound. It was sent from the wound care to receive IV antibiotics, workup, likely surgical intervention. A CT of the foot suspicious for potential osteomyelitis. Patient has had a lower extremity angiography to evaluate patient's PAD which patient will need bypass graft to revascularize the right lower extremity. Incidentally patient was found to have a heart rate in the 40s and cardiology was consulted for bradycardia. Vital signs upon examination of heart rate between 55-60, blood pressure of 170/74, O2 saturations of 97% on room air respiratory rate of 18. Patient denies chest pain, dizziness, lightheadedness, palpitations, shortness of breath, fever, chills, abdominal pain, or near syncope. Past Med Surg Social Fam HX - Past Medical History Medical history: coronary artery disease, CVA (July 2017 with right hemispheric stroke), diabetes, hyperlipidemia, hypertension, myocardial infarction Psychiatric history: no psych history - Past Surgical History Surgical History: angioplasty/stent, LE vascular intervention Additional surgical history: toe amputation - Social History Smoking Status: Current every day smoker Smokeless Tobacco Status: No Alcohol use: none Drug use: none - Family History Mother Hx Family Endocrine Disorder: Yes (DM) Father Living Status: Hx Family Cancer: Yes (prostate) Medications and Allergies Clopidogrel [Plavix] 75 mg PO DAILY 07/12/17 [History] Icosapent Ethyl [Vascepa] 2 gm PO BID 07/12/17 [History] Pregabalin [Lyrica] 300 mg PO BID 07/12/17 [History] Sulfamethoxazole/Trimeth DS [Bactrim DS] 1 each PO BID #20 tablet 10/25/17 [Rx] Aspirin [Lo-Dose Aspirin EC] 81 mg PO DAILY 07/22/19 [History] Atorvastatin Calcium [Lipitor] 80 mg PO HS 07/22/19 [History] Insulin Degludec [Tresiba Flextouch U-200] 30 units SQ HS 07/22/19 [History] Lisinopril [Zestril] 40 mg PO DAILY 07/22/19 [History] Metformin HCl [Glucophage] 1,000 mg PO BID 07/22/19 [History] Metoprolol Succinate [Toprol Xl] 25 mg PO DAILY 07/22/19 [History] amLODIPine [Norvasc] 5 mg PO DAILY 07/22/19 [History] Allergy/AdvReac Type Severity Reaction Status Date / Time No Known Allergies Allergy Verified 07/22/19 17:52 All Systems Review: The remainder of the systems were reviewed and are negative - Constitutional Constitutional: no chills, no fever(s) - EENT Eyes: no blurred vision, no loss of vision - Cardiovascular Cardiovascular: no chest pain at rest, no chest pain with exertion, no diaphoresis, no dyspnea at rest, no dyspnea on exertion, no palpitations, no rapid heart rate - Respiratory Respiratory: no cough, no dyspnea - Gastrointestinal Gastrointestinal: no abdominal pain, no nausea - Musculoskeletal Musculoskeletal: no muscle cramps, no muscle weakness - Integumentary Integumentary: no erythema, no rash - Neurological Neurological: no abnormal speech, no dizziness, no loss of vision, no syncope - Psychiatric Psychiatric: no anxiety, no depression - Hematological/Lymphatic Hematologic/Lymphatic: no easy bleeding, no easy bruising Physical Examination Vital Signs, Last 4 Hours Temp Pulse Resp BP Pulse Ox 07/23/19 12:29 97.6 F 42 18 164/69 95 07/23/19 11:55 97.7 F 42 16 149/66 97 07/23/19 11:40 97.8 F 46 14 143/64 94 07/23/19 11:25 44 14 174/67 95 07/23/19 11:10 47 170/74 97 Results 07/23/19 00:45 07/23/19 00:45 Lab Results 07/22/19 07/23/19 07/23/19 16:06 00:45 00:45 WBC 7.0 Hgb 12.4 L Hct 36.3 L Plt Count 294 Sodium 136 Potassium 3.8 Chloride 105 Carbon Dioxide 23 BUN 12 Creatinine 0.87 Glucose 188 H Calcium 8.4 L TSH 1.350 Consult Discharge Plan - Plan Referrals: Delphine Talyor CNP [Primary Care Provider] - 08/05/19 2:20 pm Marco Eden MD [Partnered Physician] - 08/16/19 9:45 am (This appointment is in [place] ) <Agusto Morris A - Last Filed: 07/23/19 18:10> Date of Encounter: 07/23/19 - Attending Attestation I have personally performed a face to face evaluation on this patient. I have reviewed and agree with the documented findings and care plan as documented by the resident. History and Exam by me shows: Patient with asymptomatic chronic bradycardia. Metoprolol is currently on hold. Recommend 2 week event monitor, upon dismissal from the hospital. Thanks for the consult, please call with questions. Agusto Morris MD [facility] Assessment and Plan Discussion w patient/family: The assessment and plan as outlined above was discussed with the patient and/or family members who expressed understanding and agreement. All questions were answered. Thank you for involving us in the care of your patient. Please call with any questions. History of Present Illness History of present illness: Mr. Santana is a 59 year old male All Systems Review: The remainder of the systems were reviewed and are negative Physical Examination Vital Signs, Last 4 Hours Temp Pulse BP Pulse Ox 07/23/19 15:00 98.2 F 50 176/72 95 Results 07/23/19 00:45 07/23/19 00:45 Lab Results 07/23/19 07/23/19 00:45 00:45 WBC 7.0 Hgb 12.4 L Hct 36.3 L Plt Count 294 Sodium 136 Potassium 3.8 Chloride 105 Carbon Dioxide 23 BUN 12 Creatinine 0.87 Glucose 188 H Calcium 8.4 L
--- NOTE | 2019-07-23 15:01 | Internal Med Progress Note ---
Hospitalist Progress Note - Encounter Date of Encounter: 07/23/19 Time of Encounter: 14:57 - Subjective Interval History: Patient is awake and alert. Lying down in bed. Denies any new complaints. No shortness of breath or chest pain. No nausea or vomiting. Denies any significant pain in his right foot. - Exam Vitals: Temp Pulse Resp BP Pulse Ox 97.9 F 50 14 174/70 96 07/23/19 14:00 07/23/19 14:00 07/23/19 14:00 07/23/19 14:00 07/23/19 14:00 Exam: General: Patient is alert, no acute distress, oriented x 3 Respiratory: Good respiratory effort. Normal breath sounds. No wheezing or crackles. Cardiovascular: Bradycardic. s1 and s2 normal No clicks, rubs, gallops, or murmurs. No pedal edema Abdomen: Abdomen is soft, nontender. Bowel sounds are present Musculoskeletal: Right foot bandaged. Nontender. Skin: warm, dry, intact. Neuro: Alert oriented x 3 normal cranial nerves, no focal deficits - Assessment and Plan (1) Diabetes 1.5, managed as type 2 Current Visit: Yes Status: Chronic (2) Diabetic ulcer of foot associated with diabetes mellitus due to underlying condition, limited to breakdown of skin Current Visit: Yes Status: Chronic (3) Foot osteomyelitis, right Current Visit: Yes Status: Suspected (4) CAD (coronary artery disease) Current Visit: Yes Status: Chronic (5) DVT prophylaxis Current Visit: Yes Status: Acute DVT Prophylaxis: On subcutaneous heparin - Summary of Assessment and Plan Summary of Assessment and Plan: Right foot osteomyelitis involving the fifth toe: Continue antibiotics. Podiatry following. Recommend vascular surgery evaluation. Peripheral vascular disease: Patient has been evaluated by vascular surgery and underwent angiogram today. Recommended femoropopliteal bypass on the right side on Friday. continue aspirin, Plavix and statin. Sinus bradycardia: Consulted cardiology for evaluation. Metoprolol held at admission. Patient's heart rate remains between 40 and 50. No dizziness or lightheadedness reported. Thyroid profile is normal. Essential hypertension: Uncontrolled. Metoprolol has been held due to patient's bradycardia. Increased lisinopril dosage to 40 mg daily and also added amlodipine which the patient already takes at home. We will continue to monitor blood pressure. Also add hydralazine intravenously as needed for systolic blood pressure greater than 160. Diabetes mellitus type 2: Diabetic diet. Continue sliding scale insulin. Coronary artery disease: Patient on aspirin, Plavix, statin. Metoprolol held due to sinus bradycardia. Patient had an echocardiogram done in May which showed an EF of 45-50% which is around his baseline based on stress test done in 2016. Mild left ventricle diastolic dysfunction and mild systolic dysfunction noted. DVT prophylaxis with subcutaneous heparin - Time Spent with Patient Total time spent is greater than 50% in coordination of care (as documented) at patient's floor/unit and/or counseling patient: Internal Medicine: Result - Labs CBC & Chem 7: 07/23/19 00:45 07/23/19 00:45 Labs: Short CBC 07/23/19 Range/Units 00:45 WBC 7.0 (4.3-11.1) K/mcL Hgb 12.4 L (12.9-16.9) g/dL Hct 36.3 L (37.5-50.1) % Plt Count 294 (140-400) K/mcL Neutrophils # 3.3 (1.6-8.9) K/mcL BMP 07/23/19 00:45 Sodium 136 Potassium 3.8 Chloride 105 Carbon Dioxide 23 BUN 12 Creatinine 0.87 Glucose 188 H Calcium 8.4 L - ABG Interpretation ABG results: PT/INR, D-dimer PT 12.6 Seconds (9.4-12.1) H 07/22/19 02:47 Consult Discharge Plan - Plan Referrals: Delphine Taylor CNP [Primary Care Provider] - 08/05/19 2:20 pm Marco Eden MD [Partnered Physician] - 08/16/19 9:45 am (This appointment is in [place] ) (2) Diabetic ulcer of foot associated with diabetes mellitus due to underlying condition, limited to breakdown of skin Qualifiers: Diabetic foot ulcer location: toe Laterality: right Qualified Code(s): E08.621 - Diabetes mellitus due to underlying condition with foot ulcer; L97.511 - Non-pressure chronic ulcer of other part of right foot limited to breakdown of skin (3) Foot osteomyelitis, right Qualifiers: Osteomyelitis type: unspecified type Qualified Code(s): M86.9 - Osteomyelitis, unspecified (4) CAD (coronary artery disease) Qualifiers: Coronary Disease-Associated Artery/Lesion type: [place] artery [place] vs. transplanted heart: [place] heart Associated angina: without angina Qualified Code(s): I25.10 - Atherosclerotic heart disease of [place] coronary artery without angina pectoris
--- NOTE | 2019-07-23 16:53 | Event Note ---
Date of Encounter: 07/23/19 Time of Encounter: 16:20 The results of the angiogram were discussed in full with the patient. I reviewed the images with the patient's earlier this morning. I discussed the potential risks and benefits as well as complications and alternatives to direct open bypass grafting to the right lower extremity. After full discussion of this issue patient has accepted my recommendation for right femoral-popliteal bypass graft. This will be performed on Friday.
[2019-07-23] MEDS: Insulin DETEMIR 100 UNIT/ML X5UNITS SQ SCH (20:56)
[2019-07-24] MEDS: Piperacillin/Tazobactam 3.375 GM in 0.9 % Sodium Chloride Mini Bag 100 ML IVPB SCH ×3 (00:50→16:39)
[2019-07-24 04:49] LABS: BUN/Creatinine Ratio 14 (6-26); Blood Urea Nitrogen 11 mg/dL (6-20); Calcium 7.5 mg/dL (8.6-10.3); Carbon Dioxide 22 mEq/L (23-29); Chloride 109 mEq/L (98-107); Glucose 149 mg/dL (70-105); Osmolality,Calculated 288 (280-300); Potassium 3.3 mEq/L (3.5-5.1); Sodium 138 mEq/L (136-145); eGFR For African Americans > 60 (> 60); eGFR For Non-African Americans > 60 (> 60)
[2019-07-24] MEDS: *HR* Heparin 5,000 UNIT/ML VIAL SQ SCH ×2 (06:19→16:54)
[2019-07-24] MEDS: Aspirin Enteric Coated 81 MG Tablet PO SCH (08:04)
[2019-07-24] MEDS: amLODIPine 5 MG TABLET PO SCH (08:04)
[2019-07-24] MEDS: Lisinopril 20 MG TABLET PO SCH (08:05)
[2019-07-24] MEDS: Pregabalin 75 MG CAPSULE PO SCH ×2 (08:05→21:27)
[2019-07-24] MEDS: 0.9 % Sodium Chloride 1,000 ML IVC SCH ×2 (08:08→21:27)
[2019-07-24] MEDS: Insulin LISPRO 300 UNITS/3 ML VIAL SQ SCH ×4 (08:10→22:01)
--- NOTE | 2019-07-24 10:03 | Internal Med Progress Note ---
Hospitalist Progress Note - Encounter Date of Encounter: 07/24/19 Time of Encounter: 10:01 - Subjective Interval History: Patient is awake and alert. Comfortable. Denies any new complaints at this time. No chest pain or palpitations. No fevers or chills. No nausea or vomiting. - Exam Vitals: Temp Pulse Resp BP Pulse Ox 97.6 F 50 16 170/71 98 07/24/19 07:20 07/24/19 07:20 07/24/19 07:20 07/24/19 07:20 07/24/19 07:20 Exam: General: Patient is alert, no acute distress, oriented x 3 Respiratory: Good respiratory effort. Normal breath sounds. No wheezing or crackles. Cardiovascular: Bradycardic. s1 and s2 normal No clicks, rubs, gallops, or murmurs. No pedal edema Abdomen: Abdomen is soft, nontender. Bowel sounds are present Musculoskeletal: Right foot bandaged. Nontender. Skin: warm, dry, intact. Neuro: Alert oriented x 3 normal cranial nerves, no focal deficits - Assessment and Plan (1) Diabetes 1.5, managed as type 2 Current Visit: Yes Status: Chronic (2) Diabetic ulcer of foot associated with diabetes mellitus due to underlying condition, limited to breakdown of skin Current Visit: Yes Status: Chronic (3) Foot osteomyelitis, right Current Visit: Yes Status: Suspected (4) CAD (coronary artery disease) Current Visit: Yes Status: Chronic (5) DVT prophylaxis Current Visit: Yes Status: Acute DVT Prophylaxis: On subcutaneous heparin - Summary of Assessment and Plan Summary of Assessment and Plan: Right foot osteomyelitis involving the fifth toe: Continue antibiotics. Podiatry following. Recommend vascular surgery evaluation. Plan for surgery after femoropopliteal bypass. Peripheral vascular disease: Has been evaluated by vascular surgery and recommended femoropopliteal bypass. Scheduled for Friday. Continue aspirin, Plavix and statin. Sinus bradycardia: Heart rate mostly in the 50s now. Continue to hold the Toprol. Cardiology consult appreciated. Essential hypertension: Blood pressure was better controlled overnight. Elevated again this morning. We will recheck later today and adjust antihypertensive regimen. Diabetes mellitus type 2: Fairly controlled. Continue current sliding scale coverage Coronary artery disease: Patient on aspirin, Plavix, statin. Metoprolol held due to sinus bradycardia. Patient had an echocardiogram done in May which showed an EF of 45-50% which is around his baseline based on stress test done in 2017. Mild left ventricle diastolic dysfunction and mild systolic dysfunction noted. No chest pain. No further workup planned at this time. DVT prophylaxis with subcutaneous heparin - Time Spent with Patient Total time spent is greater than 50% in coordination of care (as documented) at patient's floor/unit and/or counseling patient: Internal Medicine: Result - Labs CBC & Chem 7: 07/23/19 00:45 07/24/19 04:12 Labs: BMP 07/24/19 04:12 Sodium 138 Potassium 3.3 L Chloride 109 H Carbon Dioxide 22 L BUN 11 Creatinine 0.81 Glucose 149 H Calcium 7.5 L - ABG Interpretation ABG results: PT/INR, D-dimer PT 12.6 Seconds (9.4-12.1) H 07/22/19 02:47 Consult Discharge Plan - Plan Referrals: Delphine Taylor CNP [Primary Care Provider] - 08/05/19 2:20 pm Marco Eden MD [Partnered Physician] - 08/16/19 9:45 am (This appointment is in [place] ) (2) Diabetic ulcer of foot associated with diabetes mellitus due to underlying condition, limited to breakdown of skin Qualifiers: Diabetic foot ulcer location: toe Laterality: right Qualified Code(s): E0 8.621 - Diabetes mellitus due to underlying condition with foot ulcer; L97.511 - Non-pressure chronic ulcer of other part of right foot limited to breakdown of skin (3) Foot osteomyelitis, right Qualifiers: Osteomyelitis type: unspecified type Qualified Code(s): M86.9 - Osteomyelitis, unspecified (4) CAD (coronary artery disease) Qualifiers: Coronary Disease-Associated Artery/Lesion type: [place] artery [place] vs. transplanted heart: [place] heart Associated angina: without angina Qualified Code(s): I25.10 - Atherosclerotic heart disease of [place] coronary artery without angina pectoris
[2019-07-24] MEDS ORDERED: Lisinopril 20 MG TABLET PO ONE (11:31)
[2019-07-24] MEDS: Insulin DETEMIR 100 UNIT/ML X5UNITS SQ SCH (21:27)
[2019-07-25] MEDS: Piperacillin/Tazobactam 3.375 GM in 0.9 % Sodium Chloride Mini Bag 100 ML IVPB SCH ×4 (00:38→22:55)
[2019-07-25 02:06] LABS: BUN/Creatinine Ratio 21 (6-26); Blood Urea Nitrogen 16 mg/dL (6-20); Calcium 8.6 mg/dL (8.6-10.3); Carbon Dioxide 24 mEq/L (23-29); Chloride 105 mEq/L (98-107); Glucose 168 mg/dL (70-105); Osmolality,Calculated 287 (280-300); Potassium 3.6 mEq/L (3.5-5.1); Sodium 136 mEq/L (136-145); eGFR For African Americans > 60 (> 60); eGFR For Non-African Americans > 60 (> 60)
[2019-07-25] MEDS: *HR* Heparin 5,000 UNIT/ML VIAL SQ SCH ×2 (06:36→17:47)
[2019-07-25] MEDS: Pregabalin 75 MG CAPSULE PO SCH ×2 (08:04→19:51)
[2019-07-25] MEDS: Lisinopril 20 MG TABLET PO SCH (08:04)
[2019-07-25] MEDS: Aspirin Enteric Coated 81 MG Tablet PO SCH (08:04)
[2019-07-25] MEDS: amLODIPine 5 MG TABLET PO SCH (08:04)
[2019-07-25] MEDS: Insulin LISPRO 300 UNITS/3 ML VIAL SQ SCH ×4 (08:05→19:58)
[2019-07-25] MEDS: 0.9 % Sodium Chloride 1,000 ML IVC SCH ×3 (10:02→22:55)
--- NOTE | 2019-07-25 12:22 | Internal Med Progress Note ---
Hospitalist Progress Note - Encounter Date of Encounter: 07/25/19 Time of Encounter: 09:40 - Subjective Interval History: Patient sitting up in bed. Comfortable. Denies any new complaints at this time. Tolerating oral diet well. No other acute issues reported overnight. - Exam Vitals: Temp Pulse Resp BP Pulse Ox 98.9 F 55 17 149/68 94 07/25/19 11:11 07/25/19 11:11 07/25/19 11:11 07/25/19 11:11 07/25/19 11:11 Exam: General: Patient is alert, no acute distress, oriented x 3 Respiratory: Good respiratory effort. Normal breath sounds. No wheezing or scrap drop operator ckles. Cardiovascular: Bradycardic. s1 and s2 normal No clicks, rubs, gallops, or murmurs. No pedal edema Abdomen: Abdomen is soft, nontender. Bowel sounds are present Musculoskeletal: Right foot bandaged. Nontender. Skin: warm, dry, intact. Neuro: Alert oriented x 3 normal cranial nerves, no focal deficits - Assessment and Plan (1) Diabetes 1.5, managed as type 2 Current Visit: Yes Status: Chronic (2) Diabetic ulcer of foot associated with diabetes mellitus due to underlying condition, limited to breakdown of skin Current Visit: Yes Status: Chronic (3) Foot osteomyelitis, right Current Visit: Yes Status: Suspected (4) CAD (coronary artery disease) Current Visit: Yes Status: Chronic (5) DVT prophylaxis Current Visit: Yes Status: Acute DVT Prophylaxis: On subcutaneous heparin - Summary of Assessment and Plan Summary of Assessment and Plan: Right foot osteomyelitis involving the fifth toe: Continue current management with IV antibiotics. Plan for right-sided femoropopliteal bypass tomorrow. We will eventually need right foot debridement. Peripheral vascular disease: Continue aspirin, Plavix and statin. Plan for right femoropopliteal bypass tomorrow. Sinus bradycardia: Stable. Heart rate remains in the 50s. Asymptomatic Continue to hold the Toprol. Cardiology consult appreciated. Essential hypertension: Blood pressure remains intermittently elevated. Will increase amlodipine dosage to 10 mg daily.. Diabetes mellitus type 2: Better controlled. Continue current insulin regimen Coronary artery disease: Patient on aspirin, Plavix, statin. Metoprolol held due to sinus bradycardia. No chest pain. DVT prophylaxis with subcutaneous heparin - Time Spent with Patient Total time spent is greater than 50% in coordination of care (as documented) at patient's floor/unit and/or counseling patient: Internal Medicine: Result - Labs CBC & Chem 7: 07/23/19 00:45 07/25/19 00:52 Labs: BMP 07/25/19 00:52 Sodium 136 Potassium 3.6 Chloride 105 Carbon Dioxide 24 BUN 16 Creatinine 0.77 Glucose 168 H Calcium 8.6 - ABG Interpretation ABG results: PT/INR, D-dimer PT 12.6 Seconds (9.4-12.1) H 07/22/19 02:47 Consult Discharge Plan - Plan Referrals: Delphine Taylor CNP [Primary Care Provider] - 08/05/19 2:20 pm Marco Eden MD [Partnered Physician] - 08/16/19 9:45 am (This appointment is in [place] ) (2) Diabetic ulcer of foot associated with diabetes mellitus due to underlying condition, limited to breakdown of skin Qualifiers: Diabetic foot ulcer location: toe Laterality: right Qualified Code(s): E08.621 - Diabetes mellitus due to underlying condition with foot ulcer; L97.511 - Non-pressure chronic ulcer of other part of right foot limited to breakdown of skin (3) Foot osteomyelitis, right Qualifiers: Osteomyelitis type: unspecified type Qualified Code(s): M86.9 - Osteomyeli tis, unspecified (4) CAD (coronary artery disease) Qualifiers: Coronary Disease-Associated Artery/Lesion type: [place] artery [place] vs. transplanted heart: [place] heart Associated angina: without angina Qualified Code(s): I25.10 - Atherosclerotic heart disease of [place] coronary artery with out angina pectoris
[2019-07-25] MEDS: Insulin DETEMIR 100 UNIT/ML X5UNITS SQ SCH (22:55)
[2019-07-26] MEDS: *HR* Heparin 5,000 UNIT/ML VIAL SQ SCH ×2 (05:36→21:54)
[2019-07-26 06:22] LABS: Basophils # 0.1 K/mcL (0.0-0.2); Basophils % 1.6 %; Eosinophils # 0.5 K/mcL (0.0-0.6); Eosinophils % 5.3 %; Hematocrit 36.1 % (37.5-50.1); Hemoglobin 12.1 g/dL (12.9-16.9); Immature Granulocytes % 1.4 % (0-4); Lymphocytes # 2.5 K/mcL (0.6-4.6); Lymphocytes % 29.2 %; Mean Corpuscular HGB Conc 33.5 g/dL (31.6-35.5); Mean Corpuscular Hemoglobin 30.3 pg (28.0-33.3); Mean Corpuscular Volume 90.3 fL (83.0-100.0); Mean Platelet Volume 11.4 fL (9.4-12.4); Monocytes # 0.9 K/mcL (0.0-1.3); Monocytes % 10.4 %; Neutrophils # 4.4 K/mcL (1.6-8.9); Platelet Count 242 K/mcL (140-400); Red Cell Distribution Width 13.6 % (11.5-14.5); Segmented Neutrophils % 52.1 %; White Blood Count 8.5 K/mcL (4.3-11.1)
[2019-07-26 06:45] LABS: BUN/Creatinine Ratio 21 (6-26); Blood Urea Nitrogen 13 mg/dL (6-20); Calcium 8.7 mg/dL (8.6-10.3); Carbon Dioxide 24 mEq/L (23-29); Chloride 107 mEq/L (98-107); Glucose 155 mg/dL (70-105); Osmolality,Calculated 289 (280-300); Potassium 3.7 mEq/L (3.5-5.1); Sodium 138 mEq/L (136-145); eGFR For African Americans > 60 (> 60); eGFR For Non-African Americans > 60 (> 60)
[2019-07-26] MEDS: Insulin LISPRO 300 UNITS/3 ML VIAL SQ SCH ×3 (07:16→21:54)
[2019-07-26] MEDS: 0.9 % Sodium Chloride 1,000 ML IVC SCH ×2 (09:56→09:57)
[2019-07-26] MEDS: Pregabalin 75 MG CAPSULE PO SCH (09:57)
[2019-07-26] MEDS: Lisinopril 20 MG TABLET PO SCH (09:58)
[2019-07-26] MEDS: amLODIPine 5 MG TABLET PO SCH (09:58)
[2019-07-26] MEDS: Piperacillin/Tazobactam 3.375 GM in 0.9 % Sodium Chloride Mini Bag 100 ML IVPB SCH ×3 (09:58→23:31)
[2019-07-26] MEDS ORDERED: ceFAZolin 1,000 MG, Sodium Chloride IRRigation 1,000 ML IR ONE ×2 (10:00→22:19)
--- NOTE | 2019-07-26 10:34 | Podiatry Progress Note ---
Date of Encounter: 07/26/19 Time of Encounter: 10:30 - Assessment and Plan (1) Osteomyelitis of fifth toe of right foot Current Visit: Yes Status: Acute Assessment: Right 5th phalanx ulcer with dusky color noted to digit Xerosis with peeling skin noted to right foot Right posterior calcaneous ulceration noted with edema noted Hyperkeratosis noted to surrounding tissue Appears stable WBC 8.5, afebrile ESR 20, CRP <5 Non-palpable pulses Wound cultures from 07/09 returned Group B Strep and MSSA Plan: Currently on vanc and zosyn, recommend de-escalating ATB, would recommend ancef and flagyl Vascular surgery today Local wound care, see orders Heel medix boots ordered, bed superintendent maintenance airports ordered Podiatry will await vascular intervention and then wait 2-3 days after intervention prior to surgical intervention for amputation of toe Cleansed right 5th digit and right calcaneous with 0.9 NS Painted right 5th digit with betadine, covered with adaptic, 4x4 dry gauze Covered right calcaneous with 4x4 dry gauze Secured with kerlix and medipore tape (2) Diabetic ulcer of left foot Current Visit: Yes Status: Acute Assessment: Left lateral foot wound with superficial opening noted WBC 8.5, afebrile ESR 20, CRP <5 Non-palpable pulses Plan: Vascular surgery today Local wound care Keep foot off bed, heel medix boots ordered Qualifiers: Diabetic foot ulcer location: midfoot Diabetes mellitus type: type 2 Non-pressure ulcer stage: limited to breakdown of skin Qualified Code(s): E11.621 - Type 2 diabetes mellitus with foot ulcer; L97.421 - Non-pressure chronic ulcer of left heel and midfoot limited to breakdown of skin Subjective Principal diagnosis: OM Interval history: Patient awake in bed. Alert and oriented x 3. Denies any fevers, chills, nausea, vomiting, or diarrhea. Denies any chest pain, calf pain, or shortness of breath. Denies any foot pain. Reports plan for vascular intervention today. No other questions or concerns at this time. Objective - Vital Signs Vital Signs: Vital Signs Temp Pulse Resp BP Pulse Ox 07/26/19 08:15 98.2 F 92 16 160/61 07/26/19 03:19 97.5 F L 52 16 147/65 96 07/25/19 23:40 98.3 F 67 18 174/87 99 08/25/19 19:42 96 07/25/19 18:47 97.8 F 58 16 189/76 96 07/25/19 11:11 98.9 F 55 17 149/68 94 Intake and Output 07/25/19 07/26/19 07/26/19 23:59 07:59 15:59 Intake Total 1600 / 3530 1600 / 1600 Output Total 3950 / 6050 1500 / 1500 Balance -2350 / -2520 -1500 / 100 1600 / 100 Intake: IV Fluids 1600 / 3050 1600 / 1600 0.9 % Sodium Chloride 1,000 ML 1000 / 2000 1000 / 1000 @ 100 mls/hr IVC .Q10H YEN[facility] Rx#: [id number] Zosyn 3.375 GM In 0.9 % Sodium 100 / 300 100 / 100 Chloride (Mini-Bag +) 100 ML @ 25 mls/hr IVPB Q8HR YENNI Rx#: [id number] Vancocin 1,750 MG In 0.9 % 500 / 750 500 / 500 Sodium Chloride 500 ML @ 333. 333 mls/hr IVPB Q12H [facility]NI Rx#: [id number] Output: Urine 3950 / 6050 1500 / 1500 Other: Weight 111.4 kg Blood Glucose* 190 142 Patient Weight 07/26/19 23:59 Weight 111.4 kg - Exam Exam: Constitiutional: Alert and oriented x 3. Well nourished. No acute distress noted Vascular: non-palpable DP/PT bilaterally, CFT sluggish to all digits, warm to cool from tibia to toes bilaterally, no calf pain with squeeze Neurologic: Absent sensation to touch, normal plantar response Dermatologic: Xerosis cutis noted BLE, right 5th phalanx with ulceration noted to medial and lateral aspect of digit, dusky in color, Diaz grade II ulceration noted to right posterior calcaneous, left superficial wound noted to left lateral foot Musculoskeletal: 3/5 muscle strength and normal tone RLE, rigid LLE - Lab Result Diagrams: 07/26/19 06:12 07/26/19 06:12 Labs: Abnormal lab results RBC 4.00 M/mcL (4.19-5.50) L 07/26/19 06:12 Hgb 12.1 g/dL (12.9-16.9) L 07/26/19 06:12 Hct 36.1 % (37.5-50.1) L 07/26/19 06:12 ESR 20 mm/hr (0-10) H 07/22/19 02:47 PT 12.6 Seconds (9.4-12.1) H 07/22/19 02:47 Sodium 135 mEq/L (136-145) L 07/22/19 02:47 Potassium 3.3 mEq/L (3.5-5.1) L 07/24/19 04:12 Chloride 109 mEq/L (98-107) H 07/24/19 04:12 Carbon Dioxide 22 mEq/L (23-29) L 07/24/19 04:12 Creatinine 0.62 mg/dL (0.70-1.30) L 07/26/19 06:12 Glucose 155 mg/dL (70-105) H 07/26/19 06:12 POC Glucose 128 mg/dL (70-99) H 07/25/19 12:15 Hemoglobin A1c 7.3 % (-5.6) H 07/22/19 02:47 Calculated Osmolality 279 (280-300) L 07/22/19 02:47 Calcium 7.5 mg/dL (8.6-10.3) L 07/24/19 04:12 Vancomycin Trough 13 mcg/mL (5-10) H 07/25/19 00:52 Consult Discharge Plan - Plan Referrals: Delphine Taylor CNP [Primary Care Provider] - 08/05/19 2:20 pm Marco Eden MD [Partnered Physician] - 08/16/19 9:45 am (This appointment is in [place] )
--- NOTE | 2019-07-26 11:01 | Internal Med Progress Note ---
<Andrew Haji - Last Filed: 07/26/19 12:19> Hospitalist Progress Note - Encounter Date of Encounter: 07/26/19 Time of Encounter: 09:15 - Exam Vitals: Temp Pulse Resp BP Pulse Ox 97.5 F L 86 19 127/71 96 07/26/19 12:11 07/26/19 12:11 07/26/19 12:11 07/26/19 12:11 07/26/19 03:19 - Assessment and Plan (1) Diabetes 1.5, managed as type 2 Current Visit: Yes Status: Chronic (2) Diabetic ulcer of foot associated with diabetes mellitus due to underlying condition, limited to breakdown of skin Current Visit: Yes Status: Chronic (3) Foot osteomyelitis, right Current Visit: Yes Status: Suspected (4) CAD (coronary artery disease) Current Visit: Yes Status: Chronic (5) DVT prophylaxis Current Visit: Yes Status: Acute - Time Spent with Patient Total time spent is greater than 50% in coordination of care (as documented) at patient's floor/unit and/or counseling patient: Internal Medicine: Result - Labs CBC & Chem 7: 07/26/19 06:12 07/26/19 06:12 Labs: Short CBC 07/26/19 Range/Units 06:12 WBC 8.5 (4.3-11.1) K/mcL Hgb 12.1 L (12.9-16.9) g/dL Hct 36.1 L (37.5-50.1) % Plt Count 242 (140-400) K/mcL Neutrophils # 4.4 (1.6-8.9) K/mcL BMP 07/26/19 06:12 Sodium 138 Potassium 3.7 Chloride 107 Carbon Dioxide 24 BUN 13 Creatinine 0.62 L Glucose 155 H Calcium 8.7 - ABG Interpretation ABG results: PT/INR, D-dimer PT 12.6 Seconds (9.4-12.1) H 07/22/19 02:47 Consult Discharge Plan - Plan Referrals: Delphine Taylor CNP [Primary Care Provider] - 08/05/19 2:20 pm Marco Eden MD [Partnered Physician] - 08/16/19 9:45 am (This appointment is in [place] ) - Attending Attestation I saw evaluated and examined this patient and reviewed objective data including labs and my medical decision-making was reviewed with the Resident Physician, Aileen Hein. I agree with the documented findings, disposition and treatment plan as described except to any changes set forth below. We independently had [id number] contact with the patient. Patient scheduled to undergo right femoropopliteal bypass today. Doing well overall. Denies any new complaints. Blood sugars are fairly controlled. He has been nothing by mouth overnight. Vascular surgery and podiatry following. Continue current antibiotics. Stop IV fluids. Blood pressure elevated. Amlodipine dosage has been increased. We will assess response. <Aileen Hein E - Last Filed: 07/26/19 16:37> Hospitalist Progress Note - Encounter Date of Encounter: 07/26/19 - Subjective Interval History: Initially seen for possible osteomyelitis left foot. Femoropopliteal scheduled for today. Patient was seen and examined at bedside today doing well. He states he is not in any pain. Denies any chest pain shortness of breath abdominal pain. - Exam Vitals: Temp Pulse Resp BP Pulse Ox 98.2 F 92 16 160/61 96 07/26/19 08:15 07/26/19 08:15 07/26/19 08:15 07/26/19 08:15 07/26/19 03:19 Exam: General: Awake alert and oriented 3, no acute distress, answers questions appropriately Head: normocephalic, atraumatic Eyes: DAVID, no icterus Cardio: RRR, no murmurs, rubs, or gallops Respiratory: CTAB, no wheezing, rhonchi, rales Abd: normal bowel sounds, no gaurding or rigidity Extremities: Left leg 3+ pitting edema to the knee, slightly warm on exam. Left foot recently redressed by podiatry before exam. Skin: warm, dry, intact - Assessment and Plan (1) Sinus bradycardia Current Visit: Yes Status: Acute Assessment and Plan: Currently stable Asymptomatic Continue to hold Toprol (2) Diabetes 1.5, managed as type 2 Current Visit: Yes Status: Chronic Assessment and Plan: Well controlled Continue Levemir 40 units at night as well as sliding scale insulin Continue to monitor blood glucose levels (3) Essential (primary) hypertension Current Visit: No Status: Chronic Assessment and Plan: Amlodipine increased to 10 mg today Continue to monitor blood pressures (4) Diabetic ulcer of foot associated with diabetes mellitus due to underlying condition, limited to breakdown of skin Current Visit: Yes Status: Chronic Assessment and Plan: Continue current management with IV antibiotics Right sided femoropopliteal today Right foot debridement by podiatry scheduled for 1-2 days after femoropopliteal (5) Osteomyelitis of fifth toe of right foot Current Visit: Yes Status: Acute Assessment and Plan: Continue Zosyn and vancomycin Podiatry on board (6) CAD (coronary artery disease) Current Visit: Yes Status: Chronic Assessment and Plan: Patient currently on aspirin, Plavix, statin Toprol held due to bradycardia Stable (7) DVT prophylaxis Current Visit: Yes Status: Acute Assessment and Plan: Subcutaneous heparin DVT Prophylaxis: On subcutaneous heparin - Time Spent with Patient Total time spent is greater than 50% in coordination of care (as documented) at patient's floor/unit and/or counseling patient: Internal Medicine: Result - Labs CBC & Chem 7: 07/26/19 06:12 07/26/19 06:12 Labs: Short CBC 07/26/19 Range/Units 06:12 WBC 8.5 (4.3-11.1) K/mcL Hgb 12.1 L (12.9-16.9) g/dL Hct 36.1 L (37.5-50.1) % Plt Count 242 (140-400) K/mcL Neutrophils # 4.4 (1.6-8.9) K/mcL BMP 07/26/19 06:12 Sodium 138 Potassium 3.7 Chloride 107 Carbon Dioxide 24 BUN 13 Creatinine 0.62 L Glucose 155 H Calcium 8.7 - ABG Interpretation ABG results: PT/INR, D-dimer PT 12.6 Seconds (9.4-12.1) H 07/22/19 02:47 <Andrew Haji - Last Filed: 07/26/19 12:19> (2) Diabetic ulcer of foot associated with diabetes mellitus due to underlying condition, limited to breakdown of skin Qualifiers: Diabetic foot ulcer location: toe Laterality: right Qualified Code(s): E08.621 - Diabetes mellitus due to underlying condition with foot ulcer; L97.511 - Non-pressure chronic ulcer of other part of right foot limited to breakdown of skin (3) Foot osteomyelitis, right Qualifiers: Osteomyelitis type: unspecified type Qualified Code(s): M86.9 - Osteomyelitis, unspecified (4) CAD (coronary artery disease) Qualifiers: Coronary Disease-Associated Artery/Lesion type: [place] artery [place] vs. transplanted heart: [place] heart Associated angina: without angina Qualified Code(s): I25.10 - Atherosclerotic heart disease of [place] coronary artery without angina pectoris <Aileen Hein - Last Filed: 07/26/19 16:37> (4) Diabetic ulcer of foot associated with diabetes mellitus due to underlying condition, limited to breakdown of skin Qualifiers: Diabetic foot ulcer location: toe Laterality: right Qualified Code(s): E08.621 - Diabetes mellitus due to underlying condition with foot ulcer; L97.511 - Non-pressure chronic ulcer of other part of right foot limited to breakdown of skin (6) CAD (coronary artery disease) Qualifiers: Coronary Disease-Associated Artery/Lesion type: [place] artery [place] vs. transplanted heart: [place] heart Associated angina: without angina Qualified Code(s): I25.10 - Atherosclerotic heart disease of [place] coronary artery without angina pectoris
[2019-07-26] MEDS: Aspirin Enteric Coated 81 MG Tablet PO SCH (11:19)
[2019-07-26] MEDS ORDERED: amLODIPine 5 MG TABLET PO ONE (11:40)
[2019-07-26] MEDS ORDERED: Aminoglycoside Consult 1 EACH MC ONE (12:34)
[2019-07-26] MEDS ORDERED: Heparin 1,000 UNITS/500 mL 1,000 ML ONE (16:10)
[2019-07-26] MEDS ORDERED: Heparin 1,000 UNITS/500 mL 0 ML ONE (16:37)
--- NOTE | 2019-07-26 16:52 | Anesthesia Evaluation PreOp ---
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: CVA (residual left sided deficit) Other Medical History: Diabetes Type II Anesthesia History: No Prior Anesthetic Complications, Past Anesthesia Alcohol Use: none Drug use: none Medications and Allergies Clopidogrel [Plavix] 75 mg PO DAILY 07/12/17 [History] Icosapent Ethyl [Vascepa] 2 gm PO BID 07/12/17 [History] Pregabalin [Lyrica] 300 mg PO BID 07/12/17 [History] Sulfamethoxazole/Trimeth DS [Bactrim DS] 1 each PO BID #20 tablet 10/25/17 [Rx] Aspirin [Lo-Dose Aspirin EC] 81 mg PO DAILY 07/22/19 [History] Atorvastatin Calcium [Lipitor] 80 mg PO HS 07/22/19 [History] Insulin Degludec [Tresiba Flextouch U-200] 30 units SQ HS 07/22/19 [History] Lisinopril [Zestril] 40 mg PO DAILY 07/22/19 [History] Metformin HCl [Glucophage] 1,000 mg PO BID 07/22/19 [History] Metoprolol Succinate [Toprol Xl] 25 mg PO DAILY 07/22/19 [History] amLODIPine [Norvasc] 5 mg PO DAILY 07/22/19 [History] Allergy/AdvReac Type Severity Reaction Status Date / Time No Known Allergies Allergy Verified 07/22/19 17:52 - Meds/Allergy Pre-op Review Medications Reviewed: Yes Allergies Reviewed: Yes Beta Blockers on Current Med List: Yes (stopped for bradycardia) Anesthesia Results - Labs 07/26/19 06:12 07/26/19 06:12 - Imaging EKG: report reviewed (07/22/2019 SINUS BRADYCARDIA WITH FREQUENT VENTRICULAR PREMATURE COMPLEXES INFERIOR MYOCARDIAL INFARCTION, PROBABLY OLD) Additional studies: 05/29/2019 Echo Impressions: LVEF 45-50%. Mild segmental left ventricular systolic dysfunction. Mild left ventricular diastolic dysfunction. Moderate concentric left ventricular hypertrophy. Normal right ventricular structure and function. No significant valvular dysfunction. No evidence of pulmonary hypertension. 08/20/2017 Stress Impression: Pharmacologic stress ECG is non-diagnostic for ischemia due to submaximal HR. Gated EF = 41%. The left ventricle is dilated. LVEDV = 218 mL. Large sized, moderate to severe intensity, fixed perfusion defect throughout the inferior, inferolateral, all apical segments and apex suggestive of a prior infarct(s). Minimal flaquito-infarct ischemia visualized in the apical lateral segment (SDS 1). No ischemia in the remaining territories. Anesthesia Exam Vital Signs/O2 Sat/Glucose, Most Recent Temp Pulse Resp BP Pulse Ox 97.5 F L 86 19 127/71 96 07/26/19 12:11 07/26/19 12:11 07/26/19 12:11 07/26/19 12:11 07/26/19 03:19 Blood Glucose* 106 Height: 6'1''/1.85m Weight: 245 lbs/111.4 kg NPO (# of Hours): 8 Pain Scale: 0 Pain Scale Used: Numeric (1 - 10) - HEENT Pupil (Motor): EOMI Mallampati: II Teeth: Edentulous Denture Type: Upper: Complete, Lower: Complete Oral Opening: Greater than 3 - ELECTROTYPER APPRENTICE LOC: Oriented ELECTROTYPER APPRENTICE Motor: Normal RUE, Normal RLE, Normal Face, Deficit LUE, Deficit LLE ELECTROTYPER APPRENTICE Sensory: Normal: RUE, LUE, RLE, LLE, Face - Cardiac Rhythm: Regular Murmur: None - Pulmonary Breath Sounds: bilateral Clear Respiratory Effort: Symmetrical Anesthesia Assess/Plan ASA Score: 3 Level of consciousness: Cooperative, Oriented, Tranquil Anesthetic Plan: General Monitoring Plan: Standard Monitors, A-Line Recovery Plan: PACU
[2019-07-26] MEDS ORDERED: *HR* Midazolam HCl 2 MG/2 ML VIAL ONE (16:57)
[2019-07-26] MEDS ORDERED: *HR* FentaNYL (PF) 100 MCG/2 ML VIAL ONE ×2 (16:57→18:36)
[2019-07-26] MEDS ORDERED: Lidocaine -MPF 2% 2 ML VIAL ONE (17:09)
[2019-07-26] MEDS ORDERED: *HR* Propofol 200 MG/20 ML VIAL IVP ONE (17:09)
[2019-07-26] MEDS ORDERED: *HR* Rocuronium Bromide 50 MG/5 ML VIAL ONE (17:09)
[2019-07-26] MEDS ORDERED: Dexamethasone 4 MG/ML VIAL ONE (17:11)
[2019-07-26] MEDS ORDERED: Ondansetron 4 MG/2 ML VIAL ONE (17:11)
[2019-07-26] MEDS ORDERED: *HR* PHENYLEPHRINE 1,000 MCG/10 ML SYRINGE IVP ONE (17:47)
[2019-07-26] MEDS ORDERED: *HR* Phenylephrine 10 MG/ML VIAL ONE (17:51)
[2019-07-26] MEDS ORDERED: EPHEDrine 50 MG/ML VIAL ONE (17:55)
[2019-07-26] MEDS ORDERED: *HR* Heparin 5,000 UNIT/ML VIAL ONE (18:19)
[2019-07-26] MEDS ORDERED: Ondansetron 4 MG/2 ML VIAL IVP ONE ×2 (18:53→22:19)
[2019-07-26] MEDS ORDERED: *HR* Labetalol 20 MG/4 ML SYRINGE IVP PRN (18:53)
[2019-07-26] MEDS ORDERED: *HR* HYDROmorphone (PF) 1 MG/ML SYRINGE IVP PRN (18:53)
[2019-07-26] MEDS ORDERED: *HR* OxyCODONE Immed Rel 5 MG TABLET PO PRN (18:53)
[2019-07-26] MEDS ORDERED: *HR* Promethazine 25 MG/ML VIAL IVP PRN (18:53)
--- NOTE | 2019-07-26 21:19 | Operative Note ---
Date of procedure: 07/26/19 Pre-op diagnosis: PAD/ Post-op diagnosis: same Procedure: right femoral-Above knee popliteal bypass graft with 6 mm PTFE Distaflo right popliteal endarterectomy Complications: 0 Anesthesia: BRYNA Surgeon: Marco Eden Was there an hotel administrative assistant present: No Estimated blood loss (cc): 200 Specimen: 0 Condition: stable Disposition: PACU Procedure in Detail: History Mr. Santana is a 59-year-old white male was admitted last week because of deteriorating right toe wound with osteomyelitis. He has a long ago. History also includes a right hemispheric stroke with left aurelia-plegia. The right foot wound has been managed through the outpatient wound clinic at [place]. The toe has been deteriorating and he was recommended to be admitted for IV antibiotic and further therapy. His ankle brachial index was found only be approximated 0.55. This then led to an angiogram which was performed last week. This demonstrated a chronic total occlusion of the right superficial femoral artery. This was unable to be treated through an endovascular means and he now comes to the operating room for direct surgical reconstruction. Procedure After informed consent was obtained the patient was taken to the operating room. General endotracheal anesthesia was established under arterial line pressure monitoring. The right lower extremity was sterilely prepped and draped. A timeout protocol was observed. The initial incision was in the right groin. This was an oblique incision. The patient had lymphadenopathy present. There was no signs of purulence or infection. Dissection was performed to expose and control the femoral bifurcation. After this was done a second incision was made in the [id number] popliteal location. Dissection was carried onto the popliteal artery. This area appeared to be very inflamed with markedly adherent fat to the neurovascular bundle. This required tedious dissection to free it up and when this was finally achieved we were able to get control proximally and distally. A subsartorial tunnel was then created. A 6 mm PTFE graft was selected and passed through the tunnel. 5000 units of heparin was then administered intravenously. After a three-minute delay the popliteal artery was clamped and then opened through a longitudinal arteriotomy. Inspection of the artery revealed significant plaque formation. This then lead to the need for a formal popliteal endarterectomy. A septal elevator was used in a dissection of the plaque was performed proximally and distally. It was performed in circumferentially and then dissected distally. This was grabbed and with a mos nikita after freeing up the edges and then gently removed in total. The area was then irrigated and all residual debris was removed. The vessel was then flushed retrograde and antegrade distally. The distal anastomosis was then constructed using 6-0 Prolene suture in an end-to-side fashion. After this was performed a Frankie-Hydragrip clamp was applied to the graft and then the [place] vessel cl amps were removed. Attention was then directed to the proximal anastomosis. A longitudinal arteriotomy was made on the distal anterior surface of the common femoral artery. Dissection was carried proximally. The patient had a moderate amount of bulky plaque present here but this did not need to be endarterectomized as the plaque could be tacked down successfully with the anastomotic sutures. The anastomosis here was treated with 6-0 Prolene in an end-to-side fashion. After appropriate backbleeding and flushing pulsatile flow was restored through the graft and then into the popliteal artery. The patient had excellent palpable pulse. Doppler signals were identified over the posterior tibial and dorsalis pedis artery at the ankle. With this done the wounds were copiously irrigated with antibody containing solution. Hemostasis was achieved. Marcaine was infiltrated into the wounds. The wounds were then closed in layers using absorbable suture. Dry sterile dressings were applied. The patient was extubated in the operating room. He was hemodynamically stable. He was taken from the operating room to the recovery room in stable condition. The sponge count and needle counts were correct.
[2019-07-26] MEDS ORDERED: Ondansetron 4 MG/2 ML VIAL IVP PRN (22:19)
[2019-07-26] MEDS ORDERED: D5% in Water 1,000 ML IVC PRN (22:19)
[2019-07-26] MEDS ORDERED: Dextrose Gel 15 GM/37.5 ML TUBE PO PRN ×2 (22:19)
[2019-07-26] MEDS ORDERED: traMADol 50 MG TABLET PO PRN (22:19)
[2019-07-26] MEDS ORDERED: Naloxone 0.4 MG/ML INJ IVP PRN ×2 (22:19)
[2019-07-26] MEDS ORDERED: *HR* Dextrose 50 % in Water (Syg) 50 ML SYRINGE IVP PRN (22:19)
--- NOTE | 2019-07-26 22:19 | Anesthesia Evaluation Post Op ---
Date of Encounter: 07/26/19 Time of Encounter: 22:20 - Vital Signs Vital Signs: Vital Signs/O2 Sat/Glucose, Most Current Temp Pulse Resp BP Pulse Ox 07/26/19 22:05 98.1 F 100 16 116/69 93 07/26/19 21:55 98 16 104/78 93 07/26/19 21:45 98 16 121/72 93 07/26/19 21:35 98.2 F 103 18 125/73 95 - Lungs Lungs: Clear Ascult./Percussion - Airway Airway: Non-obstructed - Cardiovascular Regular Rate - Mental Status Mental Status: Alert & Oriented, Answers Appropriately - Pain Pain Scale: 0 - Nausea Vomiting Nausea Vomiting: Not Present - Hydration Hydration: Ice chips, Haynes catheter - Discharge PostOp Status: Transfer Patient to floor
[2019-07-27 04:16] LABS: Basophils # 0.1 K/mcL (0.0-0.2); Basophils % 0.3 %; Hematocrit 35.1 % (37.5-50.1); Immature Granulocytes % 0.8 % (0-4); Lymphocytes % 4.3 %; Mean Corpuscular HGB Conc 34.2 g/dL (31.6-35.5); Mean Corpuscular Hemoglobin 30.7 pg (28.0-33.3); Mean Corpuscular Volume 89.8 fL (83.0-100.0); Monocytes % 4.2 %; Neutrophils # 20.3 K/mcL (1.6-8.9); Platelet Count 276 K/mcL (140-400); Red Blood Count 3.91 M/mcL (4.19-5.50); Segmented Neutrophils % 90.4 %
[2019-07-27 04:17] LABS: White Blood Count 22.5 K/mcL (4.3-11.1)
[2019-07-27 04:41] LABS: Alanine Aminotransferase 53 Units/L (7-52); Albumin 3.5 g/dL (3.5-5.7); Albumin/Globulin Ratio 1.3 (1.1-2.2); Alkaline Phosphatase 71 Units/L (34-104); Aspartate Amino Transferase 48 Units/L (13-39); BUN/Creatinine Ratio 18 (6-26); Bilirubin,Total 0.6 mg/dL (0.3-1.0); Blood Urea Nitrogen 16 mg/dL (6-20); Calcium 8.6 mg/dL (8.6-10.3); Carbon Dioxide 20 mEq/L (23-29); Chloride 102 mEq/L (98-107); Globulin 2.6 g/dL (2.4-3.5); Glucose 214 mg/dL (70-105); Osmolality,Calculated 290 (280-300); Sodium 136 mEq/L (136-145); Total Protein 6.1 g/dL (6.4-8.9); eGFR For African Americans > 60 (> 60); eGFR For Non-African Americans > 60 (> 60)
[2019-07-27] MEDS: *HR* Heparin 5,000 UNIT/ML VIAL SQ SCH ×2 (06:40→17:41)
[2019-07-27] MEDS: Insulin LISPRO 300 UNITS/3 ML VIAL SQ SCH ×4 (08:29→20:17)
[2019-07-27] MEDS: Piperacillin/Tazobactam 3.375 GM in 0.9 % Sodium Chloride Mini Bag 100 ML IVPB SCH (08:32)
[2019-07-27] MEDS: Pregabalin 75 MG CAPSULE PO SCH ×2 (08:34→20:15)
[2019-07-27] MEDS: amLODIPine 5 MG TABLET PO SCH (08:34)
[2019-07-27] MEDS: Aspirin Enteric Coated 81 MG Tablet PO SCH (08:35)
[2019-07-27] MEDS: Lisinopril 20 MG TABLET PO SCH (08:35)
[2019-07-27] MEDS ORDERED: amLODIPine 5 MG TABLET PO SCH (09:00)
--- NOTE | 2019-07-27 09:54 | Podiatry Progress Note ---
Date of Encounter: 07/27/19 Time of Encounter: 09:51 - Assessment and Plan (1) Osteomyelitis of fifth toe of right foot Current Visit: Yes Status: Acute Assessment: Right 5th phalanx ulcer with dusky color noted to digit Xerosis with peeling skin noted to right foot Right posterior calcaneous ulceration noted with edema noted Hyperkeratosis noted to surrounding tissue Appears stable WBC 22.5, likely reactive from surgery, afebrile ESR 20, CRP <5 Doppler pulses Wound cultures from 07/09 returned Group B Strep and MSSA S/P right femoral-Above knee popliteal bypass graft with 6 mm PTFE Distaflo and right popliteal endarterectomy with Dr. Eden 07/26/19 Plan: Currently on zosyn and ancef, agree with ATB Plan for surgery for right foot 5th toe amp, debridement 5th met NPO after MN Friday Local wound care, see orders Heel medix boots ordered, bed jewelry casting model maker ordered, discussed with nurse, nursing to place Cleansed right 5th digit and right calcaneous with 0.9 NS Painted right 5th digit with betadine, covered with adaptic, 4x4 dry gauze Covered right calcaneous with adaptic, 4x4 dry gauze Secured with kerlix and medipore tape (2) Diabetic ulcer of left foot Current Visit: Yes Status: Acute Assessment: Left lateral foot wound with superficial opening noted WBC 22.5, likely reactive from procedure, afebrile ESR 20, CRP <5 Doppler pulses Plan: Local wound care Keep foot off bed, heel medix boots ordered, bed jewelry casting model maker ordered, discussed with nurse Qualifiers: Diabetic foot ulcer location: midfoot Diabetes mellitus type: type 2 Non- pressure ulcer stage: limited to breakdown of skin Qualified Code(s): E11.621 - Type 2 diabetes mellitus with foot ulcer; L97.421 - Non-pressure chronic ulcer of left heel and midfoot limited to breakdown of skin Subjective Principal diagnosis: OM Interval history: Patient awake in bed. Alert and oriented x 3. Denies any fevers, chills, nausea, vomiting, or diarrhea. Denies any chest pain, calf pain, or shortness of breath. Denies any foot pain. Discussed plan for surgical intervention on . Patient agreeable. No other questions or concerns at this time. Objective - Vital Signs Vital Signs: Vital Signs Temp Pulse Resp BP Pulse Ox 07/27/19 07:54 98.5 F 66 16 118/70 91 07/27/19 05:14 18 99 07/27/19 03:15 98.0 F 82 14 143/80 95 07/27/19 02:15 80 119/71 07/27/19 01:15 85 111/72 95 07/27/19 00:42 97.6 F 90 121/77 07/26/19 23:15 93 126/83 07/26/19 23:02 98.0 F 88 16 126/73 93 07/26/19 22:45 98.6 F 103 18 109/76 92 07/26/19 22:30 97.8 F 99 16 108/74 92 07/26/19 22:05 98.1 F 100 16 116/69 93 07/26/19 21:55 98 16 104/78 93 07/26/19 21:45 98 16 121/72 93 07/26/19 21:35 98.2 F 103 18 125/73 95 07/26/19 12:11 97.5 F L 86 19 127/71 Intake and Output 07/26/19 07/27/19 07/27/19 23:59 07:59 15:59 Intake Total 200 / 440 240 / 440 Output Total 200 / 3950 100 / 100 Balance -200 / -2250 100 / 340 240 / 340 Intake: IV Fluids 200 / 200 Zosyn 3.375 GM In 0.9 % Sodium 100 / 100 Chloride (Mini-Bag +) 100 ML @ 25 mls/hr IVPB Q8HR [facility] Rx#: [id number] Ancef 2,000 MG In 0.9 % Sodium 100 / 100 Chloride 100 ML @ 200 mls/hr IVPB Q8HR [facility] Rx#:[id number] Oral 240 / 240 Output: Estimated Blood Loss 200 / 200 Catheter 100 / 100 Urethral ([place]) 100 / 100 Other: Meal Breakfast Percent of Meal Consumed 100% Blood Glucose* 174 189 - Exam Exam: Constitiutional: Alert and oriented x 3. Well nourished. No acute distress noted Vascular: non-palpable DP/PT bilaterally, CFT sluggish to all digits, warm to cool from tibia to toes bilaterally, no calf pain with squeeze Neurologic: Absent sensation to touch, normal plantar response Dermatologic: Xerosis cutis noted BLE, right 5th phalanx with ulceration noted to medial and lateral aspect of digit, dusky in color, Diaz grade II ulceration noted to right posterior calcaneous, left superficial wound noted to left lateral foot Musculoskeletal: 3/5 muscle strength and normal tone RLE, rigid LLE - Lab Result Diagrams: 07/27/19 04:00 07/27/19 04:00 Labs: Abnormal lab results WBC 22.5 K/mcL (4.3-11.1) H D 07/27/19 04:00 RBC 3.91 M/mcL (4.19-5.50) L 07/27/19 04:00 Hgb 12.0 g/dL (12.9-16.9) L 07/27/19 04:00 Hct 35.1 % (37.5-50.1) L 07/27/19 04:00 Neutrophils # 20.3 K/mcL (1.6-8.9) H 07/27/19 04:00 ESR 20 mm/hr (0-10) H 07/22/19 02:47 PT 12.6 Seconds (9.4-12.1) H 07/22/19 02:47 Sodium 135 mEq/L (136-145) L 07/22/19 02:47 Potassium 3.3 mEq/L (3.5-5.1) L 07/24/19 04:12 Chloride 109 mEq/L (98-107) H 07/24/19 04:12 Carbon Dioxide 20 mEq/L (23-29) L 07/27/19 04:00 Creatinine 0.62 mg/dL (0.70-1.30) L 07/26/19 06:12 Glucose 214 mg/dL (70-105) H 07/27/19 04:00 POC Glucose 174 mg/dL (70-99) H 07/26/19 22:30 Hemoglobin A1c 7.3 % (-5.6) H 07/22/19 02:47 Calculated Osmolality 279 (280-300) L 07/22/19 02:47 Calcium 7.5 mg/dL (8.6-10.3) L 07/24/19 04:12 AST 48 Units/L (13-39) H 07/27/19 04:00 ALT 53 Units/L (7-52) H 07/27/19 04:00 Serum Total Protein 6.1 g/dL (6.4-8.9) L 07/27/19 04:00 Vancomycin Trough 15 mcg/mL (5-10) H 07/26/19 14:58 Microbiology, Last 48 Hours 07/21/19 20:58 Blood Culture - Final Peripheral Venipuncture No growth. Final report. 07/21/19 20:58 Blood Culture - Final Peripheral Venipuncture No growth. Final report. Consult Discharge Plan - Plan Referrals: Delphine Taylor CNP [Primary Care Provider] - 08/05/19 2:20 pm Marco Eden MD [Partnered Physician] - 08/16/19 9:45 am (This appointment is in [place] )
--- NOTE | 2019-07-27 11:20 | Vascular/End[facility]as Progress Note ---
Date of Encounter: 07/27/19 Time of Encounter: 08:15 - Assessment and plan (1) Diabetes 1.5, managed as type 2 Current Visit: Yes Status: Chronic Patient has chronic diabetes. (2) Peripheral angiopathy Current Visit: Yes Status: Chronic Postoperative day #1 following right femoral popliteal bypass graft. Bypass graft is patent. Patient is hemodynamically stable. Patient may be transferred off [address] [place] [address] as needed. Patient may proceed with podiatric surgery per podiatry service.. (3) Tobacco abuse Current Visit: No Status: Chronic Patient has chronic tobacco abuse (4) Osteomyelitis of fifth toe of right foot Current Visit: Yes Status: Acute CT scan suggests osteomyelitis of right foot. Ankle-brachial index is diminished. Plan on angiography and possible endovascular intervention tomorrow morning. - Subjective Interval history: No complaints on postoperative day #1. Patient is using CPAP mask. Patient has no complaints related to the right lower extremity surgery. Vital Signs, Last 4 Hours Temp Pulse Resp BP Pulse Ox 07/27/19 08:30 60 07/27/19 07:54 98.5 F 66 16 118/70 91 - Physical Examination General: Present: Conversant, No Apparent Distress Vascular: Present: Surgical incisions (Dry dressing over surgical sites), Other (Right foot is warm. Patient has to 3 second capillary refill. Patient has Doppler signals over the dorsalis pedis and posterior tibial arteries at the ankle.) Results 07/27/19 04:00 07/27/19 04:00 Lab Results, Last 24 hours 07/27/19 07/27/19 04:00 04:00 WBC 22.5 H D Hgb 12.0 L Hct 35.1 L Plt Count 276 Sodium 136 Potassium 4.0 Chloride 102 Carbon Dioxide 20 L BUN 16 Creatinine 0.90 Glucose 214 H Calcium 8.6 Total Bilirubin 0.6 AST 48 H ALT 53 H Alkaline Phosphatase 71 Consult Discharge Plan - Plan Referrals: Delphine Taylor CNP [Primary Care Provider] - 08/05/19 2:20 pm Marco Eden MD [Partnered Physician] - 08/16/19 9:45 am (This appointment is in [place] )
--- NOTE | 2019-07-27 14:13 | Internal Med Progress Note ---
<Aileen Hein E - Last Filed: 07/27/19 16:06> Hospitalist Progress Note - Encounter Date of Encounter: 07/27/19 Time of Encounter: 09:50 - Subjective Interval History: Initially seen for possible osteomyelitis left foot. Femoropopliteal yesterday, patient did well. Podiatry planing on intervention on Patient was seen and examined at bedside today doing well. He states he is not in any pain. Denies any chest pain, shortness of breath, abdominal pain. Does state that he continues to have some foot pain as the wound on his heal has reopened. - Exam Vitals: Temp Pulse Resp BP Pulse Ox 98.0 F 72 16 122/72 90 07/27/19 11:51 07/27/19 11:51 07/27/19 11:51 07/27/19 11:51 07/27/19 11:51 Exam: General: Awake alert and oriented 3, no acute distress, answers questions appropriately Head: normocephalic, atraumatic Eyes: DAVID, no icterus Cardio: RRR, no murmurs, rubs, or gallops Respiratory: CTAB, no wheezing, rhonchi, rales Abd: normal bowel sounds, no gaurding or rigidity Extremities: Left leg 2+ pitting edema to the mid chatman, slightly warm on exam. Left foot recently redressed by podiatry before exam. Skin: warm, dry, intact - Assessment and Plan (1) Sinus bradycardia Current Visit: Yes Status: Acute Assessment and Plan: Currently stable Asymptomatic Toprol has been discontinued adn will be taken off medication list on discharge (2) Diabetes 1.5, managed as type 2 Current Visit: Yes Status: Chronic Assessment and Plan: Well controlled Continue Levemir 40 units at night as well as sliding scale insulin Continue to monitor blood glucose levels (3) Essential (primary) hypertension Current Visit: No Status: Chronic Assessment and Plan: Amlodipine increased to 10 mg yesterday under better control today Continue to monitor blood pressures (4) Diabetic ulcer of foot associated with diabetes mellitus due to underlying condition, limited to breakdown of skin Current Visit: Yes Status: Chronic Assessment and Plan: Patient currently on Zosyn and Ancef continue Wound grew Garcia-sensitive Staph Aureus ID has been consulted Podiatry following and plans for amputation Continue wound care as per podiatry Boots have been ordered for support as well as bed automotive title clerk to make sure there are no pressure sites (5) Osteomyelitis of fifth toe of right foot Current Visit: Yes Status: Acute Assessment and Plan: Continue Ancef and Zosyn ID consulted Podiatry following and plans for amputation Continue wound care as per podiatry (6) CAD (coronary artery disease) Current Visit: Yes Status: Chronic Assessment and Plan: Patient currently on aspirin, Plavix, statin Toprol discontinued due to bradycardia Stable (7) DVT prophylaxis Current Visit: Yes Status: Acute Assessment and Plan: subcutaneous heparin DVT Prophylaxis: On subcutaneous heparin - Time Spent with Patient Total time spent is greater than 50% in coordination of care (as documented) at patient's floor/unit and/or counseling patient: Internal Medicine: Result - Labs CBC & Chem 7: 07/27/19 04:00 07/27/19 04:00 Labs: Short CBC 07/27/19 Range/Units 04:00 WBC 22.5 H D (4.3-11.1) K/mcL Hgb 12.0 L (12.9-16.9) g/dL Hct 35.1 L (37.5-50.1) % Plt Count 276 (140-400) K/mcL Neutrophils # 20.3 H (1.6-8.9) K/mcL BMP 07/27/19 04:00 Sodium 136 Potassium 4.0 Chloride 102 Carbon Dioxide 20 L BUN 16 Creatinine 0.90 Glucose 214 H Calcium 8.6 Liver Function 07/27/19 Range/Units 04:00 Total Bilirubin 0.6 (0.3-1.0) mg/dL AST 48 H (13-39) Units/L ALT 53 H (7-52) Units/L Alkaline Phosphatase 71 (34-104) Units/L Albumin 3.5 (3.5-5.7) g/dL - ABG Interpretation ABG results: PT/INR, D-dimer PT 12.6 Seconds (9.4-12.1) H 07/22/19 02:47 Consult Discharge Plan - Plan Referrals: Delphine Taylor CNP [Primary Care Provider] - 08/05/19 2:20 pm Marco Eden MD [Partnered Physician] - 08/16/19 9:45 am (This appointment is in [place] ) <Andrew Haji - Last Filed: 07/27/19 16:20> Hospitalist Progress Note - Encounter Date of Encounter: 07/27/19 Time of Encounter: 09:45 - Exam Vitals: Temp Pulse Resp BP Pulse Ox 98.0 F 72 16 122/72 90 07/27/19 11:51 07/27/19 11:51 07/27/19 11:51 07/27/19 11:51 07/27/19 11:51 - Assessment and Plan (1) Diabetes 1.5, managed as type 2 Current Visit: Yes Status: Chronic (2) Diabetic ulcer of foot associated with diabetes mellitus due to underlying condition, limited to breakdown of skin Current Visit: Yes Status: Chronic (3) Foot osteomyelitis, right Current Visit: Yes Status: Suspected (4) CAD (coronary artery disease) Current Visit: Yes Status: Chronic (5) DVT prophylaxis Current Visit: Yes Status: Acute - Time Spent with Patient Total time spent is greater than 50% in coordination of care (as documented) at patient's floor/unit and/or counseling patient: Internal Medicine: Result - Labs CBC & Chem 7: 07/27/19 04:00 07/27/19 04:00 Labs: Short CBC 07/27/19 Range/Units 04:00 WBC 22.5 H D (4.3-11.1) K/mcL Hgb 12.0 L (12.9-16.9) g/dL Hct 35.1 L (37.5-50.1) % Plt Count 276 (140-400) K/mcL Neutrophils # 20.3 H (1.6-8.9) K/mcL BMP 07/27/19 04:00 Sodium 136 Potassium 4.0 Chloride 102 Carbon Dioxide 20 L BUN 16 Creatinine 0.90 Glucose 214 H Calcium 8.6 Liver Function 07/27/19 Range/Units 04:00 Total Bilirubin 0.6 (0.3-1.0) mg/dL AST 48 H (13-39) Units/L ALT 53 H (7-52) Units/L Alkaline Phosphatase 71 (34-104) Units/L Albumin 3.5 (3.5-5.7) g/dL - ABG Interpretation ABG results: PT/INR, D-dimer PT 12.6 Seconds (9.4-12.1) H 07/22/19 02:47 - Attending Attestation I saw evaluated and examined this patient and reviewed objective data including labs and my medical decision-making was reviewed with the Resident Physician, Aileen Hein. I agree with the documented findings, disposition and treatment plan as described except to any changes set forth below. We independently had [id number] contact with the patient. Patient underwent right femoropopliteal bypass yesterday. Doing well today. Denies any new complaints at this time. Tolerating diet well. No pain reported in right lower extremity. Scheduled for surgery by podiatry on .continue current antibiotics. Based on culture results from 07/09, patient was growing staph aureus and group B strep. He has previously grown Providencia. As such patient was receiving Zosyn. Patient does have elevated leukocytosis today but most likely this is reactive. We will await infectious disease evaluation and antibiotic recommendations. Vancomycin has been stopped. Blood pressure is better controlled. Blood sugars are elevated today. We will increase insulin regimen. <Aileen Hein - Last Filed: 07/27/19 16:06> (4) Diabetic ulcer of foot associated with diabetes mellitus due to underlying condition, limited to breakdown of skin Qualifiers: Diabetic foot ulcer location: toe Laterality: right Qualified Code(s): E08.621 - Diabetes mellitus due to underlying condition with foot ulcer; L97.511 - Non-pressure chronic ulcer of other part of right foot limited to breakdown of skin (6) CAD (coronary artery disease) Qualifiers: Coronary Disease-Associated Artery/Lesion type: [place] artery [place] vs. transplanted heart: [place] heart Associated angina: without angina Qualified Code(s): I25.10 - Atherosclerotic heart disease of [place] coronary artery without angina pectoris <Andrew Haji - Last Filed: 07/27/19 16:20> (2) Diabetic ulcer of foot associated with diabetes mellitus due to underlying condition, limited to breakdown of skin Qualifiers: Qualified Code(s): E08.621 - Diabetes mellitus due to underlying condition with foot ulcer; L97.511 - Non-pressure chronic ulcer of other part of right foot limited to breakdown of skin (3) Foot osteomyelitis, right Qualifiers: Qualified Code(s): M86.9 - Osteomyelitis, unspecified (4) CAD (coronary artery disease) Qualifiers: Qualified Code(s): I25.10 - Atherosclerotic heart disease of [place] coronary artery without angina pectoris
--- NOTE | 2019-07-27 16:23 | Infectious Disease Consult ---
Infectious Disease-Consult - Encounter Date/Time Date of Encounter: 07/27/19 Time of Encounter: 16:16 - Data of Consult Patient: new to practice Reason for consult: Antibiotic recommendations for osteomyelitis Consult date: 07/27/19 Requesting Physician: Andrew Haji MD Primary Care Provider: Delphine Taylor CNP - [facility] HPI: Patient is a 59-year-old gentleman who presented to [facility] on 07/21/2019 for full ulcer/infection. We are consulted on 07/27/2019 for osteomyelitis Patient is a 59-year-old gentleman with past medical history mentioned below including coronary artery disease, history of CVA, diabetes mellitus type 2 diagnosed about 10 years ago, hypertension, hyperlipidemia with peripheral vascular disease who is seeing wound care was instructed to come to the emergency department for worsening looking wound on the right fifth metatarsal. Patient denied any fevers chills night sweats. No lower extremity pain. No chest pain or shortness of breath. No nausea or vomiting no diarrhea no urinary symptoms. Since admission patient has been afebrile, no tachycardia and no tachypnea. Presenting labs revealed a WBC of 9000 with normal differential, ESR of 20, BUN of 13 creatinine 0.87. Hemoglobin A1c 7.3. CT of the right lower extremity was read as interval fracture of the distal aspect of the fifth proximal phalanx with question of associated ostial lysis. Pathologic fracture with underlying osteomyelitis cannot be excluded. Subcutaneous edema predominant involving the dorsal soft tissue and extending to involve the fifth digit with no organized fluid collections. Patient previously is known to have ankle brachial index of 0.54 on the right so patient was evaluated by Dr. Eden for vascular surgery and was taken to the OR 07/23/2019 where he underwent abdominal aortogram, ao rtogram with bilateral lower extremity runoff, selective right groin angiogram. 07/26/2019 patient underwent a right femoral above-knee popliteal bypass graft and right popliteal endarterectomy. Blood cultures were obtained on this admission on are no growth to date. No wound cultures were obtained but previous wound cultures 07/09/2019 done at the wound care were positive for MSSA and group B streptococcus. We were asked to evaluate the patient and make further recommendations. - ROS Review of Systems: 10 point review of systems done, negative other for what mentioned in the history of present illness - Results CBC & Chem 7: 07/27/19 04:00 07/27/19 04:00 - Exam Vitals: Temp Pulse Resp BP Pulse Ox 98.0 F 72 16 122/72 90 07/27/19 11:51 07/27/19 11:51 07/27/19 11:51 07/27/19 11:51 07/27/19 11:51 Exam: GENERAL: Laying in bed, appears comfortable. HEAD: Normocephalic atraumatic EYES: PERRLA, EOMI, no conjunctival hemorrhage, sclera anicteric ENT: Mucous membranes moist, no oral thrush NECK: Supple. No meningeal signs. No masses LUNGS: Chest expanding symmetrically. Lungs sounds audible both lung díaz. No wheezing, no rhonchi CV: RRR, S1S2, ABDOMEN: Soft, nontender, nondistended. Bowel sounds audible BACK: No CVA tenderness. Normal inspection. No tenderness over the spine EXTREMITY: Bilateral lower extremity venous stasis. Foot wrapped but I was able to take a look at the pictures taken by the podiatry team SKIN: Normal color. No rash. NEURO: Awake alert oriented 3. No obvious focal deficit PSYCH: Calm and appropriate. No agitation. Clopidogrel [Plavix] 75 mg PO DAILY 07/12/17 [History] Icosapent Ethyl [Vascepa] 2 gm PO BID 07/12/17 [History] Pregabalin [Lyrica] 300 mg PO BID 07/12/17 [History] Sulfamethoxazole/Trimeth DS [Bactrim DS] 1 each PO BID #20 tablet 10/25/17 [Rx] Aspirin [Lo-Dose Aspirin EC] 81 mg PO DAILY 07/22/19 [History] Atorvastatin Calcium [Lipitor] 80 mg PO HS 07/22/19 [History] Insulin Degludec [Tresiba Flextouch U-200] 30 units SQ HS 07/22/19 [History] Lisinopril [Zestril] 40 mg PO DAILY 07/22/19 [History] Metformin HCl [Glucophage] 1,000 mg PO BID 07/22/19 [History] Metoprolol Succinate [Toprol Xl] 25 mg PO DAILY 07/22/19 [History] amLODIPine [Norvasc] 5 mg PO DAILY 07/22/19 [History] Allergy/AdvReac Type Severity Reaction Status Date / Time No Known Allergies Allergy Verified 07/22/19 17:52 - Assessment and Plan (1) Osteomyelitis of fifth toe of right foot Current Visit: Yes Status: Acute CT of right lower extremity 07/22/2019: Interval fracture of the distal aspect of the 5th proximal phalanx with question of associated osteolysis. Pathologic fracture with underlying osteomyelitis cannot be excluded in the clinical setting of soft tissue infection of the 5th digit. ESR 20 cultures from the wound 07/09/19: MSSA and GBS d/w podiatry patient going to surgery on d/c zosyn start patietn on cefazolin and flagyl until cultures finalize await intra op cultures and path report duration of treatment depends on clinical picture and intra op findings monitor labs closely and for drug toxicity monitor kidney function adequate glucose control SNOMED Code(s): 387537688, 358923019, [id number] (2) Peripheral vascular disease Current Visit: Yes Status: Acute KASEY index 0.54 Status post right femoralabove-knee popliteal bypass graft 07/26/2019 Status post right popliteal endarterectomy 07/26/2019 Doing okay postop SNOMED Code(s): 020115881 (3) Tobacco abuse Current Visit: No Status: Chronic Patient requested a nicotine patch. We will let the nursing staff know SNOMED Code(s): 406333732 (4) Diabetic ulcer of foot associated with diabetes mellitus due to underlying condition, limited to breakdown of skin Current Visit: Yes Status: Chronic Qualifiers: Diabetic foot ulcer location: toe Laterality: right Qualified Code(s): E08.621 - Diabetes mellitus due to underlying condition with foot ulcer; L97.511 - Non-pressure chronic ulcer of other part of right foot limited to breakdown of skin SNOMED Code(s): 647443485, 368710816 (5) CAD (coronary artery disease) Current Visit: Yes Status: Chronic Qualifiers: Coronary Disease-Associated Artery/Lesion type: [place] artery [place] vs. transplanted heart: [place] heart Associated angina: without angina Qualified Code(s): I25.10 - Atherosclerotic heart disease of [place] coronary artery without angina pectoris SNOMED Code(s): 60651506 (6) Bradycardia Current Visit: Yes Status: Acute SNOMED Code(s): 41861553 (7) Diabetes mellitus type 2 in obese Current Visit: Yes Status: Acute most Recent A1C 7.4 SNOMED Code(s): 87443068 Past Med Surg Social Fam HX - Past Medical History Medical history: coronary artery disease, CVA (July 2017 with right hemispheri c stroke), diabetes, hyperlipidemia, hypertension, myocardial infarction Psychiatric history: no psych history - Past Surgical History Surgical History: angioplasty/stent, LE vascular intervention Additional surgical history: toe amputation - Social History Smoking Status: Current every day smoker Smokeless Tobacco Status: No Alcohol use: none Drug use: none - Family History Mother Hx Family Endocrine Disorder: Yes (DM) Father Living Status: Hx Family Cancer: Yes (prostate) Consult Discharge Plan - Plan Referrals: Delphine Taylor CNP [Primary Care Provider] - 08/05/19 2:20 pm Marco Eden MD [Partnered Physician] - 08/16/19 9:45 am (This appointment is in [place] )
[2019-07-27] MEDS: MetroNIDAZOLE 500 MG/100 ML 500 MG/100 ML BAG IVPB SCH (17:34)
[2019-07-27] MEDS: 0.9 % Sodium Chloride 1,000 ML IVC SCH (18:31)
[2019-07-27] MEDS: Insulin DETEMIR 100 UNIT/ML X5UNITS SQ SCH (20:15)
[2019-07-27] MEDS ORDERED: Nicotine 21 MG PATCH.TD24 TD STA (20:24)
[2019-07-28] MEDS: MetroNIDAZOLE 500 MG/100 ML 500 MG/100 ML BAG IVPB SCH ×3 (00:24→16:01)
[2019-07-28 04:08] LABS: Basophils # 0.1 K/mcL (0.0-0.2); Basophils % 0.7 %; Eosinophils # 0.2 K/mcL (0.0-0.6); Eosinophils % 1.2 %; Hematocrit 28.4 % (37.5-50.1); Immature Granulocytes % 0.5 % (0-4); Lymphocytes # 2.3 K/mcL (0.6-4.6); Lymphocytes % 18.9 %; Mean Corpuscular HGB Conc 34.2 g/dL (31.6-35.5); Mean Corpuscular Hemoglobin 30.6 pg (28.0-33.3); Mean Corpuscular Volume 89.6 fL (83.0-100.0); Mean Platelet Volume 12.1 fL (9.4-12.4); Monocytes # 1.3 K/mcL (0.0-1.3); Monocytes % 10.9 %; Neutrophils # 8.2 K/mcL (1.6-8.9); Platelet Count 224 K/mcL (140-400); Red Blood Count 3.17 M/mcL (4.19-5.50); Red Cell Distribution Width 14.2 % (11.5-14.5); Segmented Neutrophils % 67.8 %; White Blood Count 12.1 K/mcL (4.3-11.1)
[2019-07-28 04:09] LABS: Hemoglobin 9.7 g/dL (12.9-16.9)
[2019-07-28] MEDS: *HR* Heparin 5,000 UNIT/ML VIAL SQ SCH ×2 (06:45→16:40)
[2019-07-28] MEDS: 0.9 % Sodium Chloride 1,000 ML IVC SCH ×2 (06:46→22:13)
[2019-07-28] MEDS: Aspirin Enteric Coated 81 MG Tablet PO SCH (08:34)
[2019-07-28] MEDS: Lisinopril 20 MG TABLET PO SCH (08:34)
[2019-07-28] MEDS: Pregabalin 75 MG CAPSULE PO SCH ×2 (08:34→19:53)
[2019-07-28] MEDS: amLODIPine 5 MG TABLET PO SCH (08:34)
[2019-07-28] MEDS: Insulin LISPRO 300 UNITS/3 ML VIAL SQ SCH ×4 (08:35→20:00)
--- NOTE | 2019-07-28 08:36 | Internal Med Progress Note ---
<Amadeo Connor - Last Filed: 07/28/19 19:49> Hospitalist Progress Note - Encounter Date of Encounter: 07/28/19 Time of Encounter: 08:45 - Subjective Interval History: Patient seen and examined at bedside. Patient denies any new or acute complaints. Patient denies any fever, chills, chest pain, shortness of breath, cough, increased sputum production, abdominal pain, nausea, vomiting, headaches, numbness, or tingling. - Exam Vitals: Temp Pulse Resp BP Pulse Ox 97.5 F L 64 18 148/64 99 07/28/19 03:02 07/28/19 07:47 07/28/19 07:47 07/28/19 07:47 07/28/19 07:47 Exam: Constitutional: Well-developed male in no acute distress Head: Normocephalic, atraumatic Eyes: PERRL, EOMI, conjunctiva pink, sclera anicteric Neck: Supple, trachea midline, no lymphadenopathy Lungs: Clear to auscultation bilaterally. Nonlabored breathing. No wheezes, rales, or rhonchi noted. Cardiac: RRR. +s1 +s2 No murmurs, clicks, or rubs noted. GI: Abdomen soft, nontender, nondistended. Extremities: Warm, radial pulses palpable and symmetrical. No cyanosis, pedal edema, or calf tenderness. Dressings in place over right foot Neuro: Alert and oriented 3. No focal deficits. Normal speech. Skin: Warm, dry, and intact. Dressing in place over right foot as above - Assessment and Plan (1) Foot osteomyelitis, right Current Visit: Yes Status: Suspected Assessment and Plan: Continue Ancef and Flagyl ID consulted - appreciate recommendations Podiatry following and plans for amputation Continue wound care as per podiatry (2) Diabetic ulcer of foot associated with diabetes mellitus due to underlying condition, limited to breakdown of skin Current Visit: Yes Status: Chronic Assessment and Plan: Patient currently on Ancef and Flagyl - continue Wound grew Garcia-sensitive Staph Aureus ID has been consulted - appreciate recommendations Podiatry following and plans for amputation Continue wound care as per podiatry Boots have been ordered for support as well as bed karate teacher to make sure there are no pressure sites (3) Diabetes 1.5, managed as type 2 Current Visit: Yes Status: Chronic Assessment and Plan: Well controlled Continue Levemir 40 units at night as well as sliding scale insulin Continue to monitor blood glucose levels (4) Essential (primary) hypertension Current Visit: Yes Status: Chronic Assessment and Plan: Controlled at this time Continue amlodipine 10 mg Continue to monitor blood pressures (5) CAD (coronary artery disease) Current Visit: Yes Status: Chronic Assessment and Plan: Patient currently on aspirin, Plavix, statin Toprol discontinued due to bradycardia Stable DVT Prophylaxis: Subcutaneous heparin - Time Spent with Patient Total time spent is greater than 50% in coordination of care (as documented) at patient's floor/unit and/or counseling patient: Internal Medicine: Result - Labs CBC & Chem 7: 07/28/19 03:47 07/27/19 04:00 Labs: Short CBC 07/28/19 Range/Units 03:47 WBC 12.1 H (4.3-11.1) K/mcL Hgb 9.7 L D (12.9-16.9) g/dL Hct 28.4 L (37.5-50.1) % Plt Count 224 (140-400) K/mcL Neutrophils # 8.2 (1.6-8.9) K/mcL - ABG Interpretation ABG results: PT/INR, D-dimer PT 12.6 Seconds (9.4-12.1) H 07/22/19 02:47 Consult Discharge Plan - Plan Referrals: Delphine Taylor CNP [Primary Care Provider] - 08/05/19 2:20 pm Marco Eden MD [Partnered Physician] - 08/16/19 9:45 am (This appointment is in [place] ) <Araceli Lunsford - Last Filed: 07/28/19 20:54> Hospitalist Progress Note - Encounter Date of Encounter: 07/28/19 - Exam Vitals: Temp Pulse Resp BP Pulse Ox 99.3 F 73 19 163/70 92 07/28/19 20:48 07/28/19 19:33 07/28/19 19:33 07/28/19 19:33 07/28/19 19:33 - Assessment and Plan (1) Diabetes 1.5, managed as type 2 Current Visit: Yes Status: Chronic (2) Essential (primary) hypertension Current Visit: Yes Status: Chronic (3) Diabetic ulcer of foot associated with diabetes mellitus due to underlying condition, limited to breakdown of skin Current Visit: Yes Status: Chronic (4) Foot osteomyelitis, right Current Visit: Yes Status: Suspected (5) CAD (coronary artery disease) Current Visit: Yes Status: Chronic - Time Spent with Patient Total time spent is greater than 50% in coordination of care (as documented) at patient's floor/unit and/or counseling patient: Internal Medicine: Result - Labs CBC & Chem 7: 07/28/19 03:47 07/27/19 04:00 Labs: Short CBC 07/28/19 Range/Units 03:47 WBC 12.1 H (4.3-11.1) K/mcL Hgb 9.7 L D (12.9-16.9) g/dL Hct 28.4 L (37.5-50.1) % Plt Count 224 (140-400) K/mcL Neutrophils # 8.2 (1.6-8.9) K/mcL - ABG Interpretation ABG results: PT/INR, D-dimer PT 12.6 Seconds (9.4-12.1) H 07/22/19 02:47 - Attending Attestation I saw evaluated and examined this patient and reviewed objective data including labs and my medical decision-making was reviewed with the Resident Physician. I agree with the documented findings, disposition and treatment plan as described except to any changes set forth below. We independently had [id number] contact with the patient. <Amadeo Connor - Last Filed: 07/28/19 19:49> (1) Foot osteomyelitis, right Qualifiers: Osteomyelitis type: unspecified type Qualified Code(s): M86.9 - Osteomyelitis, unspecified (2) Diabetic ulcer of foot associated with diabetes mellitus due to underlying condition, limited to breakdown of skin Qualifiers: Diabetic foot ulcer location: toe Laterality: right Qualified Code(s): E08.621 - Diabetes mellitus due to underlying condition with foot ulcer; L97.511 - Non-pressure chronic ulcer of other part of right foot limited to breakdown of skin (5) CAD (coronary artery disease) Qualifiers: Coronary Disease-Associated Artery/Lesion type: [place] artery [place] vs. transplanted heart: [place] heart Associated angina: without angina Qualified Code(s): I25.10 - Atherosclerotic heart disease of [place] coronary artery without angina pectoris <Araceli Lunsford - Last Filed: 07/28/19 20:54> (3) Diabetic ulcer of foot associated with diabetes mellitus due to underlying c ondition, limited to breakdown of skin Qualifiers: Diabetic foot ulcer location: toe Laterality: right Qualified Code(s): E08.621 - Diabetes mellitus due to underlying condition with foot ulcer; L97.511 - Non-pressure chronic ulcer of other part of right foot limited to breakdown of skin (4) Foot osteomyelitis, right Qualifiers: Osteomyelitis type: unspecified type Qualified Code(s): M86.9 - Osteomyelitis, unspecified (5) CAD (coronary artery disease) Qualifiers: Coronary Disease-Associated Artery/Lesion type: [place] artery [place] vs. transplanted heart: [place] heart Associated angina: without angina Qualified Code(s): I25.10 - Atherosclerotic heart disease of [place] coronary artery without angina pectoris
--- NOTE | 2019-07-28 09:22 | Podiatry Progress Note ---
Date of Encounter: 07/28/19 Time of Encounter: 09:20 - Assessment and Plan (1) Osteomyelitis of fifth toe of right foot Current Visit: Yes Status: Acute Assessment: Right 5th phalanx ulcer noted to lateral and medial aspect with dusky color noted to digit Edema and erythema also noted Xerosis with peeling skin noted to right foot Right posterior calcaneous ulceration noted with edema noted Hyperkeratosis noted to surrounding tissue Appears stable WBC 12.1, afebrile ESR 20, CRP <5 Doppler pulses Wound cultures from 07/09 returned Group B Strep and MSSA S/P right femoral-Above knee popliteal bypass graft with 6 mm PTFE Distaflo and right popliteal endarterectomy with Dr. Eden 07/26/19 Plan: Currently on zosyn and ancef- ID recommendations appreciated Plan for surgery for right foot 5th toe amp, possible debridement 5th met NPO after MN Local wound care, see orders Heel medix boots ordered, bed guitar technician ordered, discussed with nurse, nursing to place Plan for right 5th toe amp and possible debridement of 5th met, right foot, Nature of the procedure, risks versus benefits, potential complications, consequences of surgery, and condition discussed. All questions and concerns addressed. Consent signed and placed in chart. Cleansed right 5th digit and right calcaneous with 0.9 NS Painted right 5th digit with betadine, covered with adaptic, 4x4 dry gauze Covered right calcaneous with adaptic, 4x4 dry gauze Secured with kerlix and medipore tape (2) Diabetic ulcer of left foot Current Visit: Yes Status: Acute Assessment: Left lateral foot wound with superficial opening noted WBC 12.1, afebrile ESR 20, CRP <5 Doppler pulses Plan: Local wound care Keep foot off bed, heel medix boots ordered, bed guitar technician ordered, discussed with nurse Qualifiers: Diabetic foot ulcer location: midfoot Diabetes mellitus type: type 2 Non- pressure ulcer stage: limited to breakdown of skin Qualified Code(s): E11.621 - Type 2 diabetes mellitus with foot ulcer; L97.421 - Non-pressure chronic ulcer of left heel and midfoot limited to breakdown of skin Subjective Principal diagnosis: OM Interval history: Patient awake in bed. Alert and oriented x 3. Denies any fevers, chills, nausea, vomiting, or diarrhea. Denies any chest pain, calf pain, or shortness of breath. Denies any foot pain. Discussed surgical intervention tomorrow. Patient agreeable. No other questions or concerns at this time. Objective - Vital Signs Vital Signs: Vital Signs Temp Pulse Resp BP Pulse Ox 07/28/19 07:47 64 18 148/64 99 07/28/19 04:33 20 99 07/28/19 03:02 97.5 F L 62 20 151/82 98 07/27/19 23:30 98.9 F 76 16 141/74 87 07/27/19 19:41 98.5 F 71 18 139/61 94 07/27/19 16:50 98.0 F 75 16 125/73 96 07/27/19 15:05 85 07/27/19 11:51 98.0 F 72 16 122/72 90 07/27/19 11:47 69 Intake and Output 07/27/19 07/28/19 07/28/19 23:59 07:59 15:59 Intake Total 200 / 1080 1200 / 1200 Output Total 1475 / 1575 550 / 550 Balance -1275 / -495 650 / 650 Intake: IV Fluids 200 / 600 1200 / 1200 0.9 % Sodium Chloride 1,000 ML 1000 / 1000 @ 75 mls/hr IVC .[id number] YEN[facility] Rx #:[id number] Flagyl Premix 500 MG/100 ML 500 100 / 100 100 / 100 mg In 100 ml @ 100 mls/hr IVPB Q8HR YENNI Rx#:[id number] Ancef 2,000 MG In 0.9 % Sodium 100 / 300 100 / 100 Chloride 100 ML @ 200 mls/hr IVPB Q8HR YENNI Rx#:[id number] Output: Urine 1325 / 1325 550 / 550 Straight Cath 150 / 150 Other: Weight 126.6 kg Blood Glucose* 232 231 Patient Weight 07/28/19 23:59 Weight 126.6 kg - Exam Exam: Constitiutional: Alert and oriented x 3. Well nourished. No acute distress noted Vascular: non-palpable DP/PT bilaterally, CFT sluggish to all digits, warm to cool from tibia to toes bilaterally, no calf pain with squeeze Neurologic: Absent sensation to touch, normal plantar response Dermatologic: Xerosis cutis noted BLE, right 5th phalanx with ulceration noted to medial and lateral aspect of digit, dusky in color, edema and erythema noted to right 5th phalanx, Diaz grade II ulceration noted to right posterior calcaneous, left superficial wound noted to left lateral foot Musculoskeletal: 3/5 muscle strength and normal tone RLE, rigid LLE - Lab Result Diagrams: 07/28/19 03:47 07/27/19 04:00 Labs: Abnormal lab results WBC 12.1 K/mcL (4.3-11.1) H 07/28/19 03:47 RBC 3.17 M/mcL (4.19-5.50) L 07/28/19 03:47 Hgb 9.7 g/dL (12.9-16.9) L D 07/28/19 03:47 Hct 28.4 % (37.5-50.1) L 07/28/19 03:47 Neutrophils # 20.3 K/mcL (1.6-8.9) H 07/27/19 04:00 ESR 20 mm/hr (0-10) H 07/22/19 02:47 PT 12.6 Seconds (9.4-12.1) H 07/22/19 02:47 Sodium 135 mEq/L (136-145) L 07/22/19 02:47 Potassium 3.3 mEq/L (3.5-5.1) L 07/24/19 04:12 Chloride 109 mEq/L (98-107) H 07/24/19 04:12 Carbon Dioxide 20 mEq/L (23-29) L 07/27/19 04:00 Creatinine 0.62 mg/dL (0.70-1.30) L 07/26/19 06:12 Glucose 214 mg/dL (70-105) H 07/27/19 04:00 POC Glucose 232 mg/dL (70-99) H 07/27/19 20:18 Hemoglobin A1c 7.3 % (-5.6) H 07/22/19 02:47 Calculated Osmolality 279 (280-300) L 07/22/19 02:47 Calcium 7.5 mg/dL (8.6-10.3) L 07/24/19 04:12 AST 48 Units/L (13-39) H 07/27/19 04:00 ALT 53 Units/L (7-52) H 07/27/19 04:00 Serum Total Protein 6.1 g/dL (6.4-8.9) L 07/27/19 04:00 Vancomycin Trough 15 mcg/mL (5-10) H 07/26/19 14:58 Microbiology, Last 48 Hours 07/21/19 20:58 Blood Culture - Final Peripheral Venipuncture No growth. Final report. 07/21/19 20:58 Blood Culture - Final Peripheral Venipuncture No growth. Final report. Consult Discharge Plan - Plan Referrals: Delphine Taylor CNP [Primary Care Provider] - 08/05/19 2:20 pm Marco Eden MD [Partnered Physician] - 08/16/19 9:45 am (This appointment is in [place] )
--- NOTE | 2019-07-28 13:24 | Vascular/Endovas Progress Note ---
Date of Encounter: 07/28/19 Time of Encounter: 08:15 - Assessment and plan (1) Diabetes 1.5, managed as type 2 Current Visit: Yes Status: Chronic Patient has chronic diabetes. (2) Peripheral angiopathy Current Visit: Yes Status: Chronic Postoperative day #2 following right femoral popliteal bypass graft. Bypass graft is patent. Patient is hemodynamically stable. Patient may be transferred off [address] [place] [address] as needed. Patient may proceed with podiatric surgery per podiatry service. (3) Tobacco abuse Current Visit: No Status: Chronic Patient has chronic tobacco abuse (4) Osteomyelitis of fifth toe of right foot Current Visit: Yes Status: Acute CT scan suggests osteomyelitis of right foot. Ankle-brachial index is diminished. Plan on angiography and possible endovascular intervention tomorrow morning. - Subjective Interval history: No complaints on postoperative day #2. Patient has no complaints related to the right lower extremity surgery. Vital Signs, Last 4 Hours Temp Pulse Resp BP Pulse Ox 07/28/19 12:17 97.9 F 91 18 149/77 96 - Physical Examination General: Present: Conversant Vascular: Present: Normal capillary refill, Color/Temperature (Right foot is warm and pink.), Other (Patient has excellent Doppler signals at right ankle.) Results 07/28/19 03:47 07/27/19 04:00 Lab Results, Last 24 hours 07/28/19 03:47 WBC 12.1 H Hgb 9.7 L D Hct 28.4 L Plt Count 224 Consult Discharge Plan - Plan Referrals: Delphine Taylor CNP [Primary Care Provider] - 08/05/19 2:20 pm Marco Eden MD [Partnered Physician] - 08/16/19 9:45 am (This appointment is in [place] )
[2019-07-28] MEDS: Acetaminophen 325 MG TABLET PO PRN (19:52)
[2019-07-28] MEDS: Insulin DETEMIR 100 UNIT/ML X5UNITS SQ SCH (19:55)
--- NOTE | 2019-07-28 22:09 | Infectious Disease Progress No ---
ID Progress Note Date of Encounter: 07/28/19 Time of Encounter: 22:07 - Subjective Subjective: Patient seen and examined. He seems to be doing okay clinically. Denies any RUBIO, no chest pain, noshortness of breath, no diarrhea. no urinary symptoms. He does complain of some pain in his leg but Dr. Eden told patient that this is common after the procedure. VS noted Tmax 100.6 labs noted - Objective CBC & Chem 7: 07/28/19 03:47 07/27/19 04:00 - Exam Vitals: Temp Pulse Resp BP Pulse Ox 99.3 F 73 19 163/70 92 07/28/19 20:48 07/28/19 19:33 07/28/19 19:33 07/28/19 19:33 07/28/19 19:33 Exam: GENERAL: Comfortable. Laying in bed NAD HEENT: MARYURI, EOMI LUNGS: Good air sounds bilaterally, no wheezing or rhonchi CV: RRR, S1 S2 ABDOMEN: Soft, nontender, + bowel sounds EXT: Adequate perfusion. No edema NEURO: A&OX3; no focal deficit - Assessment and Plan (1) Osteomyelitis of fifth toe of right foot Current Visit: Yes Status: Acute CT of right lower extremity 07/22/2019: Interval fracture of the distal aspect of the 5th proximal phalanx with question of associated osteolysis. Pathologic fracture with underlying osteomyelitis cannot be excluded in the clinical setting of soft tissue infection of the 5th digit. ESR 20 cultures from the wound 07/09/19: MSSA and GBS d/w podiatry patient going to surgery on d/c zosyn start patient on cefazolin and flagyl until cultures finalize await intra op cultures and path report duration of treatment depends on clinical picture and intra op findings monitor labs closely and for drug toxicity monitor kidney function adequate glucose control SNOMED Code(s): 653052644, 340854197, 1165275716220767 (2) Peripheral vascular disease Current Visit: Yes Status: Acute KASEY index 0.54 Status post right femoralabove-knee popliteal bypass graft 07/26/2019 Status post right popliteal endarterectomy 07/26/2019 Doing okay postop SNOMED Code(s): 071156664 (3) Tobacco abuse Current Visit: No Status: Chronic Patient requested a nicotine patch. We will let the nursing staff know SNOMED Code(s): 452565057 (4) Diabetic ulcer of foot associated with diabetes mellitus due to underlying condition, limited to breakdown of skin Current Visit: Yes Status: Chronic Qualifiers: Diabetic foot ulcer location: toe Laterality: right Qualified Code(s): E08.621 - Diabetes mellitus due to underlying condition with foot ulcer; L97.511 - Non-pressure chronic ulcer of other part of right foot limited to breakdown of skin SNOMED Code(s): 787890733, 778124634 (5) CAD (coronary artery disease) Current Visit: Yes Status: Chronic Qualifiers: Coronary Disease-Associated Artery/Lesion type: [place] artery [place] vs. transplanted heart: [place] heart Associated angina: without angina Qualified Code(s): I25.10 - Atherosclerotic heart disease of [place] coronary artery without angina pectoris SNOMED Code(s): 35937387 (6) Bradycardia Current Visit: Yes Status: Acute SNOMED Code(s): 86247243 (7) Diabetes mellitus type 2 in obese Current Visit: Yes Status: Acute most Recent A1C 7.4 SNOMED Code(s): 75489526 Consult Discharge Plan - Plan Referrals: Delphine Taylor CNP [Primary Care Provider] - 08/05/19 2:20 pm Marco Eden MD [Partnered Physician] - 08/16/19 9:45 am (This appointment is in [place] )
[2019-07-29] MEDS: MetroNIDAZOLE 500 MG/100 ML 500 MG/100 ML BAG IVPB SCH ×4 (00:13→23:42)
[2019-07-29] MEDS: Acetaminophen 325 MG TABLET PO PRN (04:16)
[2019-07-29 05:26] LABS: Basophils # 0.1 K/mcL (0.0-0.2); Basophils % 0.6 %; Eosinophils # 0.2 K/mcL (0.0-0.6); Eosinophils % 1.5 %; Hematocrit 31.9 % (37.5-50.1); Hemoglobin 10.4 g/dL (12.9-16.9); Immature Granulocytes % 0.7 % (0-4); Lymphocytes # 2.3 K/mcL (0.6-4.6); Lymphocytes % 18.1 %; Mean Corpuscular HGB Conc 32.6 g/dL (31.6-35.5); Mean Corpuscular Hemoglobin 30.7 pg (28.0-33.3); Mean Corpuscular Volume 94.1 fL (83.0-100.0); Mean Platelet Volume 12.4 fL (9.4-12.4); Monocytes # 1.8 K/mcL (0.0-1.3); Monocytes % 14.1 %; Neutrophils # 8.2 K/mcL (1.6-8.9); Platelet Count 203 K/mcL (140-400); Red Blood Count 3.39 M/mcL (4.19-5.50); Red Cell Distribution Width 14.6 % (11.5-14.5); White Blood Count 12.7 K/mcL (4.3-11.1)
[2019-07-29 05:34] LABS: INR 1.1; Prothrombin Time 12.4 Seconds (9.4-12.1)
[2019-07-29 05:42] LABS: BUN/Creatinine Ratio 20 (6-26); Blood Urea Nitrogen 14 mg/dL (6-20); Calcium 8.2 mg/dL (8.6-10.3); Carbon Dioxide 23 mEq/L (23-29); Chloride 107 mEq/L (98-107); Glucose 193 mg/dL (70-105); Osmolality,Calculated 292 (280-300); Potassium 3.6 mEq/L (3.5-5.1); Sodium 138 mEq/L (136-145); eGFR For African Americans > 60 (> 60); eGFR For Non-African Americans > 60 (> 60)
[2019-07-29] MEDS: *HR* Heparin 5,000 UNIT/ML VIAL SQ SCH ×2 (06:24→18:02)
[2019-07-29] MEDS: amLODIPine 5 MG TABLET PO SCH (08:01)
[2019-07-29] MEDS: Pregabalin 75 MG CAPSULE PO SCH ×2 (08:01→21:17)
[2019-07-29] MEDS: Lisinopril 20 MG TABLET PO SCH (08:01)
[2019-07-29] MEDS: Aspirin Enteric Coated 81 MG Tablet PO SCH (08:01)
[2019-07-29] MEDS: Insulin LISPRO 300 UNITS/3 ML VIAL SQ SCH ×3 (08:02→17:21)
--- NOTE | 2019-07-29 10:27 | Internal Med Progress Note ---
<Aileen Hein E - Last Filed: 07/29/19 17:13> Hospitalist Progress Note - Encounter Date of Encounter: 07/29/19 Time of Encounter: 09:50 - Subjective Interval History: Mr. Santana is a 59-year-old male initially here for right foot fifth digit osteo-myelitis. Status post right femoropopliteal bypass and right popliteal endarterectomy on 826. Patient seen and examined at bedside today, in no acute distress, just ready to be done with the surgery. He denies chest pain, shortness of breath, abdominal pain, nausea, vomiting, diarrhea, pain at this time. - Exam Vitals: Temp Pulse Resp BP Pulse Ox 98.8 F 58 18 137/73 92 07/29/19 07:31 07/29/19 07:31 07/29/19 07:31 07/29/19 07:31 07/29/19 07:31 Exam: General: AAO 3, in no acute distress, answers questions appropriately Head: normocephalic, atraumatic Eyes: DAVID, no icterus Cardio: RRR, no murmurs, rubs, or gallops Respiratory: CTAB, no wheezing, rhonchi, rales Abd: normal bowel sounds, no guarding or rigidity Extremities: no pedal edema, pulses equal bilaterally, warm, bilateral feet wrapped in clean dressing with no drainage noted Skin: warm, dry, intact - Assessment and Plan (1) Sinus bradycardia Current Visit: Yes Status: Acute Assessment and Plan: Hold beta sridevi will be discontinued from patient's home medication list (2) Diabetes 1.5, managed as type 2 Current Visit: Yes Status: Chronic Assessment and Plan: Well controlled Continue Levemir 40 units at night as well as sliding scale insulin Continue to monitor blood glucose levels (3) Essential (primary) hypertension Current Visit: Yes Status: Chronic Assessment and Plan: Controlled at this time Continue amlodipine 10 mg Continue to monitor blood pressures (4) Diabetic ulcer of foot associated with diabetes mellitus due to underlying condition, limited to breakdown of skin Current Visit: Yes Status: Chronic Assessment and Plan: Continue Ancef and Flagyl Wound grew Garcia-sensitive Staph Aureus ID has been consulted - appreciate recommendations Podiatry following and did a fifth digit of the right foot amputation today Continue wound care as per podiatry Boots have been ordered for support as well as bed podiatric foot and ankle specialist to make sure there are no pressure sites (5) Osteomyelitis of fifth toe of right foot Current Visit: Yes Status: Acute Assessment and Plan: Continue Ancef and Flagyl ID consulted - appreciate recommendations Podiatry following and plans for amputation Continue wound care as per podiatry (6) CAD (coronary artery disease) Current Visit: Yes Status: Chronic Assessment and Plan: Patient currently on aspirin, Plavix, statin Toprol discontinued due to bradycardia Stable (7) DVT prophylaxis Current Visit: Yes Status: Acute Assessment and Plan: Subcutaneous heparin DVT Prophylaxis: Subcutaneous heparin - Time Spent with Patient Total time spent is greater than 50% in coordination of care (as documented) at patient's floor/unit and/or counseling patient: Internal Medicine: Result - Labs CBC & Chem 7: 07/29/19 03:41 07/29/19 03:41 Labs: Short CBC 07/29/19 Range/Units 03:41 WBC 12.7 H (4.3-11.1) K/mcL Hgb 10.4 L (12.9-16.9) g/dL Hct 31.9 L (37.5-50.1) % Plt Count 203 (140-400) K/mcL Neutrophils # 8.2 (1.6-8.9) K/mcL BMP 07/29/19 03:41 Sodium 138 Potassium 3.6 Chloride 107 Carbon Dioxide 23 BUN 14 Creatinine 0.69 L Glucose 193 H Calcium 8.2 L - ABG Interpretation ABG results: PT/INR, D-dimer PT 12.4 Seconds (9.4-12.1) H 07/29/19 03:41 Consult Discharge Plan - Plan Referrals: Delphine Taylor CNP [Primary Care Provider] - 08/05/19 2:20 pm Marco Eden MD [Partnered Physician] - 08/16/19 9:45 am (This appointment is in [place] ) <Araceli Lunsford - Last Filed: 07/29/19 17:49> Hospitalist Progress Note - Encounter Date of Encounter: 07/29/19 - Exam Vitals: Temp Pulse Resp BP Pulse Ox 99.1 F 72 18 150/73 95 07/29/19 15:11 07/29/19 15:11 07/29/19 15:11 07/29/19 15:11 07/29/19 15:11 - Assessment and Plan (1) Diabetes 1.5, managed as type 2 Current Visit: Yes Status: Chronic (2) Essential (primary) hypertension Current Visit: Yes Status: Chronic (3) Diabetic ulcer of foot associated with diabetes mellitus due to underlying condition, limited to breakdown of skin Current Visit: Yes Status: Chronic (4) Foot osteomyelitis, right Current Visit: Yes Status: Suspected (5) CAD (coronary artery disease) Current Visit: Yes Status: Chronic - Time Spent with Patient Total time spent is greater than 50% in coordination of care (as documented) at patient's floor/unit and/or counseling patient: Internal Medicine: Result - Labs CBC & Chem 7: 07/29/19 03:41 07/29/19 03:41 Labs: Short CBC 07/29/19 Range/Units 03:41 WBC 12.7 H (4.3-11.1) K/mcL Hgb 10.4 L (12.9-16.9) g/dL Hct 31.9 L (37.5-50.1) % Plt Count 203 (140-400) K/mcL Neutrophils # 8.2 (1.6-8.9) K/mcL BMP 07/29/19 03:41 Sodium 138 Potassium 3.6 Chloride 107 Carbon Dioxide 23 BUN 14 Creatinine 0.69 L Glucose 193 H Calcium 8.2 L - ABG Interpretation ABG results: PT/INR, D-dimer PT 12.4 Seconds (9.4-12.1) H 07/29/19 03:41 - Attending Attestation I saw evaluated and examined this patient and reviewed objective data including labs and my medical decision-making was reviewed with the Resident Physician. I agree with the documented findings, disposition and treatment plan as described except to any changes set forth below. We independently had [id number] contact with the patient. <Aileen Hein - Last Filed: 07/29/19 17:13> (4) Diabetic ulcer of foot associated with diabetes mellitus due to underlying condition, limited to breakdown of skin Qualifiers: Diabetic foot ulcer location: toe Laterality: right Qualified Code(s): E08.621 - Diabetes mellitus due to underlying condition with foot ulcer; L97.511 - Non-pressure chronic ulcer of other part of right foot limited to breakdown of skin (6) CAD (coronary artery disease) Qualifiers: Coronary Disease-Associated Artery/Lesion type: [place] artery [place] vs. transplanted heart: [place] heart Associated angina: without angina Qualified Code(s): I25.10 - Atherosclerotic heart disease of [place] coronary artery without angina pectoris <Araceli Lunsford - Last Filed: 07/29/19 17:49> (3) Diabetic ulcer of foot associated with diabetes mellitus due to underlying condition, limited to breakdown of skin Qualifiers: Diabetic foot ulcer location: toe Laterality: right Qualified Code(s): E08.621 - Diabetes mellitus due to underlying condition with foot ulcer; L97.511 - Non-pressure chronic ulcer of other part of right foot limited to breakdown of skin (4) Foot osteomyelitis, right Qualifiers: Osteomyelitis type: unspecified type Qualified Code(s): M86.9 - Osteomyelitis, unspecified (5) CAD (coronary artery disease) Qualifiers: Coronary Disease-Associated Artery/Lesion type: [place] artery [place] vs. transplanted heart: [place] heart Associated angina: without angina Qualified Code(s): I25.10 - Atherosclerotic heart disease of [place] coronary artery without angina pectoris
[2019-07-29] MEDS ORDERED: Nicotine 21 MG PATCH.TD24 TD SCH (11:00)
--- NOTE | 2019-07-29 11:46 | Vascular/[facility] Progress Note ---
Date of Encounter: 07/29/19 Time of Encounter: 11:44 - Assessment and plan (1) Diabetes 1.5, managed as type 2 Current Visit: Yes Status: Chronic Patient has chronic diabetes. (2) Peripheral angiopathy Current Visit: Yes Status: Chronic Postoperative day #3 following right femoral popliteal bypass graft. Bypass graft is patent. Patient is hemodynamically stable. Patient may be transferred off [address] [place] [address] as needed. Patient may proceed with podiatric surgery per podiatry service. Right lower extremity bypass graft is patent. Wounds are healing well. I will sign off the case for now. Please reconsult as necessary. Otherwise I will follow up with patient in outpatient clinic. (3) Tobacco abuse Current Visit: No Status: Chronic Patient has chronic tobacco abuse (4) Osteomyelitis of fifth toe of right foot Current Visit: Yes Status: Acute Patient for joint dictation later today per podiatry. - Subjective Interval history: No complaints on postoperative day #3. Patient has no complaints related to the right lower extremity surgery. Patient for right toe amputation later today. Vital Signs, Last 4 Hours Temp Pulse Resp BP Pulse Ox 07/29/19 11:31 99.5 F 73 18 145/97 95 - Physical Examination General: Present: Conversant, No Apparent Distress HEENT: Present: Atraumatic Vascular: Present: Normal capillary refill, Surgical incisions (Surgical incisions are clean and dry), Other (Patient has Doppler signals at [place] and ankle. There is also Doppler signal in the webspace between the first and second toe. The right foot is warm.). Absent: Cyanosis Results 07/29/19 03:41 07/29/19 03:41 Lab Results, Last 24 hours 07/29/19 07/29/19 07/29/19 03:41 03:41 03:41 WBC 12.7 H Hgb 10.4 L Hct 31.9 L Plt Count 203 INR 1.1 Sodium 138 Potassium 3.6 Chloride 107 Carbon Dioxide 23 BUN 14 Creatinine 0.69 L Glucose 193 H Calcium 8.2 L Consult Discharge Plan - Plan Referrals: Delphine Taylor CNP [Primary Care Provider] - 08/05/19 2:20 pm Marco Eden MD [Partnered Physician] - 08/16/19 9:45 am (This appointment is in [place] )
--- NOTE | 2019-07-29 11:53 | Anesthesia Evaluation PreOp ---
Date of Encounter: 07/29/19 Time of Encounter: 12:44 - Past History Planned Operation: Right Big Toe Amputation Cardiac History: IN, HTN, Hyperlipidemia, Cardiac Stent Pulmonary History: Smoker (45 years), Snore, CRISTOBAL Dx (uses CPAP) FACILITIES MAINTENANCE MANAGER History: CVA (residual left sided deficit) Other Medical History: Diabetes Type II Anesthesia History: No Prior Anesthetic Complications, Past Anesthesia Alcohol Use: none Drug use: none Medications and Allergies Clopidogrel [Plavix] 75 mg PO DAILY 07/12/17 [History] Icosapent Ethyl [Vascepa] 2 gm PO BID 07/12/17 [History] Pregabalin [Lyrica] 300 mg PO BID 07/12/17 [History] Sulfamethoxazole/Trimeth DS [Bactrim DS] 1 each PO BID #20 tablet 10/25/17 [Rx] Aspirin [Lo-Dose Aspirin EC] 81 mg PO DAILY 07/22/19 [History] Atorvastatin Calcium [Lipitor] 80 mg PO HS 07/22/19 [History] Insulin Degludec [Tresiba Flextouch U-200] 30 units SQ HS 07/22/19 [History] Lisinopril [Zestril] 40 mg PO DAILY 07/22/19 [History] Metformin HCl [Glucophage] 1,000 mg PO BID 07/22/19 [History] Metoprolol Succinate [Toprol Xl] 25 mg PO DAILY 07/22/19 [History] amLODIPine [Norvasc] 5 mg PO DAILY 07/22/19 [History] Allergy/AdvReac Type Severity Reaction Status Date / Time No Known Allergies Allergy Verified 07/22/19 17:52 - Meds/Allergy Pre-op Review Medications Reviewed: Yes Allergies Reviewed: Yes Beta Blockers on Current Med List: Yes Anesthesia Results - Labs 07/29/19 03:41 07/29/19 03:41 - Imaging EKG: report reviewed (07/22/2019 SINUS BRADYCARDIA WITH FREQUENT VENTRICULAR PREMATURE COMPLEXES INFERIOR MYOCARDIAL INFARCTION, PROBABLY OLD) Additional studies: 05/29/2019 Echo Impressions: LVEF 45-50%. Mild segmental left ventricular systolic dysfunction. Mild left ventricular diastolic dysfunction. Moderate concentric left ventricular hypertrophy. Normal right ventricular structure and function. No significant valvular dysfunction. No evidence of pulmonary hypertension. 08/20/2017 Stress Impression: Pharmacologic stress ECG is non-diagnostic for ischemia due to submaximal HR. Gated EF = 41%. The left ventricle is dilated. LVEDV = 218 mL. Large sized, moderate to severe intensity, fixed perfusion defect throughout the inferior, inferolateral, all apical segments and apex suggestive of a prior infarct(s). Minimal flaquito-infarct ischemia visualized in the apical lateral segment (SDS 1). No ischemia in the remaining territories. Anesthesia Exam Vital Signs/O2 Sat/Glucose, Most Recent Temp Pulse Resp BP Pulse Ox 99.5 F 73 18 145/97 95 07/29/19 11:31 07/29/19 11:31 07/29/19 11:31 07/29/19 11:31 07/29/19 11:31 Blood Glucose* 116 Height: 6'1''/1.85m Weight: 278 lbs/126.5 kg NPO (# of Hours): 8 Pain Scale: 0 Pain Scale Used: Numeric (1 - 10) - HEENT Pupil (Motor): EOMI Mallampati: II Teeth: Edentulous Denture Type: Upper: Complete, Lower: Complete Oral Opening: Greater than 3 - FACILITIES MAINTENANCE MANAGER LOC: Oriented FACILITIES MAINTENANCE MANAGER Motor: Normal RUE, Normal LUE, Normal Face, Deficit RLE, Deficit LLE FACILITIES MAINTENANCE MANAGER Sensory: Normal: RUE, LUE, RLE, LLE, Face - Cardiac Rhythm: Regular Murmur: None - Pulmonary Breath Sounds: bilateral Clear Respiratory Effort: Symmetrical Anesthesia Assess/Plan ASA Score: 3 Level of consciousness: Cooperative, Oriented, Tranquil Anesthetic Plan: MAC Monitoring Plan: Standard Monitors Recovery Plan: PACU
[2019-07-29] MEDS ORDERED: Propofol 500 MG/50 ML INFUS..BTL ONE (12:34)
[2019-07-29] MEDS ORDERED: Lidocaine -MPF 2% 2 ML VIAL ONE (12:34)
[2019-07-29] MEDS ORDERED: *HR* FentaNYL (PF) 100 MCG/2 ML VIAL ONE ×2 (12:35→13:28)
[2019-07-29] MEDS ORDERED: Bacitracin 50,000 UNIT, Sodium Chloride IRRigation 1,000 ML IR ONE (12:45)
[2019-07-29] MEDS ORDERED: Bupivacaine/EPI 1:200k 0.25%PF 30 ML VIAL ONE (13:28)
[2019-07-29] MEDS ORDERED: Calcium Gluconate 1,000 MG/10 ML VIAL ONE (13:31)
--- NOTE | 2019-07-29 13:32 | Operative Note ---
Date of procedure: 07/29/19 Pre-op diagnosis: right 5th toe osteomyelitis Post-op diagnosis: same Procedure: amputation right 5th toe Implants: none Complications: none Anesthesia: MAC Local Anesthetics: 1% Lidocaine HCL SubQ (cc) Surgeon: Angel Cordon Was there an congressional assistant present: No Estimated blood loss (cc): 5 Specimen: right 5th toe micro and path Condition: stable Disposition: PACU Procedure in Detail: Indications: 59-year-old male with osteomyelitis of the fifth toe admitted to the hospital and is status post femoropopliteal bypass with vascular and brought to the operating room for amputation of his right fifth toe after having the nature of the procedures, risks versus benefits potential complications consequences of surgery and his condition discussed at length. No guarantees were made as to the outcome of any procedure. All questions have been answered and informed consent was signed. Patient was taken from the preoperative holding area and operating room placed on operating room table in the supine position. The right foot was scrubbed prepped and draped in the usual sterile fashion and the following procedure began. No tourniquet was utilized during the procedure. Right fifth toe amputation. Attention was directed to the lateral aspect of the right foot where the fifth digit was present with ulceration and drainage present. A racquet type incision was made around the fifth digit full-thickness down to the level of the bone and the fifth digit was freed from its soft tissue tissue attachments and disarticulated at the metatarsophalangeal joint. The toe was sent for microbiology and pathology. The surgical site was irrigated with normal sterile saline. The flexor and extensor tendons were identified and traced as far proximal as possible and resected. At the level of the amputation there was no devitalized tissue or purulent drainage noted. The decision was made to close the amputation site. 3-0 Prolene was used to reapproximate the skin. The patient tolerated the anesthesia and the procedure well escorted the recovery room vital signs stable and vascular status intact to the remaining digits of the right foot. Patient will return to the floor.
[2019-07-29] MEDS ORDERED: Naloxone 0.4 MG/ML INJ IVP PRN (14:45)
[2019-07-29] MEDS ORDERED: D5% in Water 1,000 ML IVC PRN (14:45)
[2019-07-29] MEDS ORDERED: traMADol 50 MG TABLET PO PRN (14:45)
[2019-07-29] MEDS ORDERED: Ondansetron 4 MG/2 ML VIAL IVP PRN (14:45)
[2019-07-29] MEDS ORDERED: Acetaminophen 325 MG TABLET PO PRN (14:45)
[2019-07-29] MEDS ORDERED: Dextrose Gel 15 GM/37.5 ML TUBE PO PRN ×2 (14:45)
[2019-07-29] MEDS ORDERED: *HR* Dextrose 50 % in Water (Syg) 50 ML SYRINGE IVP PRN (14:45)
[2019-07-29] MEDS: 0.9 % Sodium Chloride 1,000 ML IVC SCH (17:12)
[2019-07-29] MEDS ORDERED: Insulin LISPRO 300 UNITS/3 ML VIAL SQ SCH (21:00)
[2019-07-29] MEDS ORDERED: Insulin DETEMIR 100 UNIT/ML X5UNITS SQ SCH (21:00)
[2019-07-30] MEDS: *HR* Heparin 5,000 UNIT/ML VIAL SQ SCH ×2 (03:33→16:42)
[2019-07-30] MEDS: 0.9 % Sodium Chloride 1,000 ML IVC SCH (03:34)
[2019-07-30 04:52] LABS: Basophils # 0.1 K/mcL (0.0-0.2); Basophils % 0.8 %; Eosinophils # 0.3 K/mcL (0.0-0.6); Eosinophils % 2.8 %; Hematocrit 31.7 % (37.5-50.1); Hemoglobin 10.4 g/dL (12.9-16.9); Immature Granulocytes % 0.7 % (0-4); Lymphocytes # 1.8 K/mcL (0.6-4.6); Lymphocytes % 15.5 %; Mean Corpuscular HGB Conc 32.8 g/dL (31.6-35.5); Mean Corpuscular Hemoglobin 30.5 pg (28.0-33.3); Mean Platelet Volume 11.9 fL (9.4-12.4); Monocytes # 1.4 K/mcL (0.0-1.3); Monocytes % 11.8 %; Platelet Count 182 K/mcL (140-400); Red Blood Count 3.41 M/mcL (4.19-5.50); Red Cell Distribution Width 14.2 % (11.5-14.5); Segmented Neutrophils % 68.4 %; White Blood Count 11.6 K/mcL (4.3-11.1)
[2019-07-30 05:11] LABS: Alanine Aminotransferase 29 Units/L (7-52); Albumin 2.9 g/dL (3.5-5.7); Albumin/Globulin Ratio 1.2 (1.1-2.2); Alkaline Phosphatase 51 Units/L (34-104); Aspartate Amino Transferase 31 Units/L (13-39); BUN/Creatinine Ratio 19 (6-26); Bilirubin,Total 0.7 mg/dL (0.3-1.0); Blood Urea Nitrogen 11 mg/dL (6-20); Calcium 7.9 mg/dL (8.6-10.3); Carbon Dioxide 23 mEq/L (23-29); Chloride 106 mEq/L (98-107); Globulin 2.4 g/dL (2.4-3.5); Glucose 97 mg/dL (70-105); Osmolality,Calculated 281 (280-300); Potassium 3.4 mEq/L (3.5-5.1); Sodium 136 mEq/L (136-145); Total Protein 5.3 g/dL (6.4-8.9); eGFR For African Americans > 60 (> 60); eGFR For Non-African Americans > 60 (> 60)
[2019-07-30] MEDS: Pregabalin 75 MG CAPSULE PO SCH ×2 (07:50→21:30)
[2019-07-30] MEDS: MetroNIDAZOLE 500 MG/100 ML 500 MG/100 ML BAG IVPB SCH ×3 (07:52→23:33)
[2019-07-30] MEDS: Insulin LISPRO 300 UNITS/3 ML VIAL SQ SCH ×4 (07:53→21:30)
[2019-07-30] MEDS ORDERED: Lisinopril 20 MG TABLET PO SCH (09:00)
[2019-07-30] MEDS ORDERED: Aspirin Enteric Coated 81 MG Tablet PO SCH (09:00)
[2019-07-30] MEDS ORDERED: amLODIPine 5 MG TABLET PO SCH (09:00)
[2019-07-30] MEDS ORDERED: Nicotine 21 MG PATCH.TD24 TD SCH (09:00)
[2019-07-30] MEDS ORDERED: Dextrose Gel 15 GM/37.5 ML TUBE PO PRN ×2 (11:03)
[2019-07-30] MEDS ORDERED: 0.9 % Sodium Chloride 1,000 ML IVC SCH (11:03)
[2019-07-30] MEDS ORDERED: Ondansetron 4 MG/2 ML VIAL IVP PRN (11:03)
[2019-07-30] MEDS ORDERED: traMADol 50 MG TABLET PO PRN (11:03)
[2019-07-30] MEDS ORDERED: *HR* Dextrose 50 % in Water (Syg) 50 ML SYRINGE IVP PRN (11:03)
[2019-07-30] MEDS ORDERED: D5% in Water 1,000 ML IVC PRN (11:03)
[2019-07-30] MEDS ORDERED: Naloxone 0.4 MG/ML INJ IVP PRN (11:03)
--- NOTE | 2019-07-30 11:49 | Internal Med Progress Note ---
<Aileen Hein E - Last Filed: 07/30/19 15:42> Hospitalist Progress Note - Encounter Date of Encounter: 07/30/19 Time of Encounter: 08:15 - Subjective Interval History: Mr. Santana is a 59-year-old male who is status post femoropopliteal bypass July 26 and one day postop for right fifth toe amputation. Patient was seen and examined at bedside today and is doing well. Patient states that he still has upper thigh pain on the right from his femoropopliteal bypass. Other than the patient denies any chest pain, shortness of breath, abdominal pain, nausea, vomiting, diarrhea, weakness, calve pain. - Exam Vitals: Temp Pulse Resp BP Pulse Ox 99.4 F 64 21 141/70 94 07/30/19 07:33 07/30/19 08:00 07/30/19 07:33 07/30/19 07:33 07/30/19 07:33 Exam: General: AAO 3, in no acute distress, answers questions appropriately Head: normocephalic, atraumatic Eyes: DAVID, no icterus Cardio: RRR, no murmurs, rubs, or gallops Respiratory: CTAB, no wheezing, rhonchi, rales Abd: normal bowel sounds, no guarding or rigidity Extremities: no pedal edema, pulses equal bilaterally, warm, bilateral feet wrapped in clean dressing with no drainage noted Skin: warm, dry, intact - Assessment and Plan (1) Sinus bradycardia Current Visit: Yes Status: Acute Assessment and Plan: Hold beta sridevi will be discontinued from patient's home medication list (2) Diabetes 1.5, managed as type 2 Current Visit: Yes Status: Chronic Assessment and Plan: Well controlled Continue Levemir 40 units at night as well as sliding scale insulin Continue to monitor blood glucose levels (3) Essential (primary) hypertension Current Visit: Yes Status: Chronic Assessment and Plan: Controlled at this time Continue amlodipine 10 mg Continue to monitor blood pressures (4) Diabetic ulcer of foot associated with diabetes mellitus due to underlying condition, limited to breakdown of skin Current Visit: Yes Status: Chronic Assessment and Plan: Continue Ancef and Flagyl Wound grew Garcia-sensitive Staph Aureus ID has been consulted - appreciate recommendations Podiatry following Continue wound care as per podiatry Awaiting culture results Boots have been ordered for support as well as bed bundle tier and labeler to make sure there are no pressure sites (5) Osteomyelitis of fifth toe of right foot Current Visit: Yes Status: Acute Assessment and Plan: ID consulted - appreciate recommendations Right fifth toe amputation postop day 1 Continue wound care as per podiatry (6) CAD (coronary artery disease) Current Visit: Yes Status: Chronic Assessment and Plan: Patient currently on aspirin, Plavix, statin Toprol discontinued due to bradycardia Stable (7) DVT prophylaxis Current Visit: Yes Status: Acute Assessment and Plan: Subcutaneous heparin DVT Prophylaxis: Subcutaneous heparin - Time Spent with Patient Total time spent is greater than 50% in coordination of care (as documented) at patient's floor/unit and/or counseling patient: Plan of Care Discussed with: patient Internal Medicine: Result - Labs CBC & Chem 7: 07/30/19 04:35 07/30/19 04:35 Labs: Short CBC 07/30/19 Range/Units 04:35 WBC 11.6 H (4.3-11.1) K/mcL Hgb 10.4 L (12.9-16.9) g/dL Hct 31.7 L (37.5-50.1) % Plt Count 182 (140-400) K/mcL Neutrophils # 8.0 (1.6-8.9) K/mcL BMP 07/30/19 04:35 Sodium 136 Potassium 3.4 L Chloride 106 Carbon Dioxide 23 BUN 11 Creatinine 0.57 L Glucose 97 Calcium 7.9 L Liver Function 07/30/19 Range/Units 04:35 Total Bilirubin 0.7 (0.3-1.0) mg/dL AST 31 (13-39) Units/L ALT 29 (7-52) Units/L Alkaline Phosphatase 51 (34-104) Units/L Albumin 2.9 L (3.5-5.7) g/dL - ABG Interpretation ABG results: PT/INR, D-dimer PT 12.4 Seconds (9.4-12.1) H 07/29/19 03:41 Consult Discharge Plan - Plan Referrals: Delphine Taylor CNP [Primary Care Provider] - 08/05/19 2:20 pm Marco Eden MD [Partnered Physician] - 08/16/19 9:45 am (This appointment is in [place] ) <Araceli Lunsford - Last Filed: 07/30/19 15:52> Hospitalist Progress Note - Encounter Date of Encounter: 07/30/19 - Exam Vitals: Temp Pulse Resp BP Pulse Ox 97.9 F 66 22 142/70 94 07/30/19 11:40 07/30/19 11:40 07/30/19 11:40 07/30/19 11:40 07/30/19 07:33 - Assessment and Plan (1) Diabetes 1.5, managed as type 2 Current Visit: Yes Status: Chronic (2) Essential (primary) hypertension Current Visit: Yes Status: Chronic (3) Diabetic ulcer of foot associated with diabetes mellitus due to underlying condition, limited to breakdown of skin Current Visit: Yes Status: Chronic (4) Foot osteomyelitis, right Current Visit: Yes Status: Suspected (5) CAD (coronary artery disease) Current Visit: Yes Status: Chronic - Time Spent with Patient Total time spent is greater than 50% in coordination of care (as documented) at patient's floor/unit and/or counseling patient: Internal Medicine: Result - Labs CBC & Chem 7: 07/30/19 04:35 07/30/19 04:35 Labs: Short CBC 07/30/19 Range/Units 04:35 WBC 11.6 H (4.3-11.1) K/mcL Hgb 10.4 L (12.9-16.9) g/dL Hct 31.7 L (37.5-50.1) % Plt Count 182 (140-400) K/mcL Neutrophils # 8.0 (1.6-8.9) K/mcL BMP 07/30/19 04:35 Sodium 136 Potassium 3.4 L Chloride 106 Carbon Dioxide 23 BUN 11 Creatinine 0.57 L Glucose 97 Calcium 7.9 L Liver Function 07/30/19 Range/Units 04:35 Total Bilirubin 0.7 (0.3-1.0) mg/dL AST 31 (13-39) Units/L ALT 29 (7-52) Units/L Alkaline Phosphatase 51 (34-104) Units/L Albumin 2.9 L (3.5-5.7) g/dL - ABG Interpretation ABG results: PT/INR, D-dimer PT 12.4 Seconds (9.4-12.1) H 07/29/19 03:41 - Attending Attestation I saw evaluated and examined this patient and reviewed objective data including labs and my medical decision-making was reviewed with the Resident Physician. I agree with the documented findings, disposition and treatment plan as described except to any changes set forth below. We independently had [id number] contact with the patient. <Araceli Lunsford - Last Filed: 07/30/19 15:52> (3) Diabetic ulcer of foot associated with diabetes mellitus due to underlying condition, limited to breakdown of skin Qualifiers: Diabetic foot ulcer location: toe Laterality: right Qualified Code(s): E08.621 - Diabetes mellitus due to underlying condition with foot ulcer; L97.511 - Non-pressure chronic ulcer of other part of right foot limited to breakdown of skin (4) Foot osteomyelitis, right Qualifiers: Osteomyelitis type: unspecified type Qualified Code(s): M86.9 - Osteomyelitis, unspecified (5) CAD (coronary artery disease) Qualifiers: Coronary Disease-Associated Artery/Lesion type: [place] artery [place] vs. transplanted heart: [place] heart Associated angina: without angina Qualified C ode(s): I25.10 - Atherosclerotic heart disease of [place] coronary artery without angina pectoris
--- NOTE | 2019-07-30 15:35 | Podiatry Progress Note ---
Date of Encounter: 07/30/19 Time of Encounter: 15:33 - Assessment and Plan (1) Osteomyelitis of fifth toe of right foot Current Visit: Yes Status: Acute Assessment: S/P amputation right 5th toe ON 07/29/[address] Cordon Minimal erythema noted, no active drainage noted Xerosis with peeling skin noted to right foot Pathology pending, surgical cultures pending Right posterior calcaneous ulceration noted with minimal edema noted Hyperkeratosis noted to surrounding tissue Appears stable WBC 11.6, afebrile ESR 20, CRP <5 Doppler pulses Wound cultures from 07/09 returned Group B Strep and MSSA S/P right femoral-Above knee popliteal bypass graft with 6 mm PTFE Distaflo and right popliteal endarterectomy with Dr. Eden 07/26/19 Plan: Currently on flagyl and ancef- ID recommendations appreciated Leave dressing in place, do not change, will change in outpatient setting next week Heel medix boots ordered, bed aesthetics instructor ordered, discussed with nurse, nursing to place Ok to d/c once cleared with automotive hardware engineer and infectious disease Follow up in outpatient clinic with Dr. Cordon in one week. Please make appointment prior to d/c Cleansed right 5th metatarsal and right calcaneous with 0.9 NS Covered incision with adaptic, 4x4 dry gauze Covered right calcaneous with adaptic, 4x4 dry gauze Secured with kerlix and medipore tape (2) Diabetic ulcer of left foot Current Visit: Yes Status: Acute Assessment: Left lateral foot wound with superficial opening noted WBC 11.6, afebrile ESR 20, CRP <5 Doppler pulses Plan: Local wound care Keep foot off bed, heel medix boots ordered, bed aesthetics instructor ordered, discussed with nurse Diabetic boot ordered, if unable to place in boot patient will need TCC placed in outpatient setting Qualifiers: Diabetic foot ulcer location: midfoot Diabetes mellitus type: type 2 Non-pressure ulcer stage: limited to breakdown of skin Qualified Code(s): E11.621 - Type 2 diabetes mellitus with foot ulcer; L97.421 - Non-pressure chronic ulcer of left heel and midfoot limited to breakdown of skin Subjective Principal diagnosis: OM Interval history: Patient awake in bed. Alert and oriented x 3. Denies any fevers, chills, nausea, vomiting, or diarrhea. Denies any chest pain, calf pain, or shortness of breath. Denies any foot pain. No other questions or concerns at this time. Objective - Vital Signs Vital Signs: Vital Signs Temp Pulse Resp BP Pulse Ox 07/30/19 11:40 97.9 F 66 22 142/70 07/30/19 08:00 64 07/30/19 07:33 99.4 F 60 21 141/70 94 07/30/19 04:10 99.2 F 64 19 132/72 94 07/29/19 23:37 99.0 F 64 18 135/69 94 07/29/19 19:30 99.3 F 72 20 153/65 94 Intake and Output 07/29/19 07/30/19 07/30/19 23:59 07:59 15:59 Intake Total 440 / 640 1200 / 1520 320 / 1520 Output Total 550 / 1655 800 / 800 Balance -110 / -1015 1200 / 720 -480 / 720 Intake: IV Fluids 200 / 400 1200 / 1400 200 / 1400 0.9 % Sodium Chloride 1,000 ML 1000 / 1000 @ 75 mls/hr IVC .[id number] YENNI Rx #:[id number] Flagyl Premix 500 MG/100 ML 500 100 / 100 100 / 200 100 / 200 mg In 100 ml @ 100 mls/hr IVPB Q8HR YENNI Rx#:[id number] Ancef 2,000 MG In 0.9 % Sodium 100 / 100 100 / 200 100 / 200 Chloride 100 ML @ 200 mls/hr IVPB Q8HR YENNI Rx#:[id number] Oral 240 / 240 120 / 120 Output: Urine 550 / 1650 800 / 800 Other: Meal Dinner Breakfast Percent of Meal Consumed 80% 95% Weight 123.4 kg Blood Glucose* 162 98 121 Patient Weight 07/30/19 23:59 Weight 123.4 kg - Exam Exam: Constitiutional: Alert and oriented x 3. Well nourished. No acute distress noted Vascular: non-palpable DP/PT bilaterally, CFT sluggish to all digits, warm to cool from tibia to toes bilaterally, no calf pain with squeeze Neurologic: Absent sensation to touch, normal plantar response Dermatologic: Xerosis cutis noted BLE, right 5th metatarsal incision noted, well approximated, erythema noted, mild edema noted, no active drainage noted, Diaz grade II ulceration noted to right posterior calcaneous, left superficial wound noted to left lateral foot Musculoskeletal: 3/5 muscle strength and normal tone RLE, rigid LLE - Lab Result Diagrams: 07/30/19 04:35 07/30/19 04:35 Labs: Abnormal lab results WBC 11.6 K/mcL (4.3-11.1) H 07/30/19 04:35 RBC 3.41 M/mcL (4.19-5.50) L 07/30/19 04:35 Hgb 10.4 g/dL (12.9-16.9) L 07/30/19 04:35 Hct 31.7 % (37.5-50.1) L 07/30/19 04:35 RDW 14.6 % (11.5-14.5) H 07/29/19 03:41 Neutrophils # 20.3 K/mcL (1.6-8.9) H 07/27/19 04:00 Monocytes # 1.4 K/mcL (0.0-1.3) H 07/30/19 04:35 ESR 20 mm/hr (0-10) H 07/22/19 02:47 PT 12.4 Seconds (9.4-12.1) H 07/29/19 03:41 Sodium 135 mEq/L (136-145) L 07/22/19 02:47 Potassium 3.4 mEq/L (3.5-5.1) L 07/30/19 04:35 Chloride 109 mEq/L (98-107) H 07/24/19 04:12 Carbon Dioxide 20 mEq/L (23-29) L 07/27/19 04:00 Creatinine 0.57 mg/dL (0.70-1.30) L 07/30/19 04:35 Glucose 193 mg/dL (70-105) H 07/29/19 03:41 POC Glucose 162 mg/dL (70-99) H 07/29/19 19:55 Hemoglobin A1c 7.3 % (-5.6) H 07/22/19 02:47 Calculated Osmolality 279 (280-300) L 07/22/19 02:47 Calcium 7.9 mg/dL (8.6-10.3) L 07/30/19 04:35 AST 48 Units/L (13-39) H 07/27/19 04:00 ALT 53 Units/L (7-52) H 07/27/19 04:00 Serum Total Protein 5.3 g/dL (6.4-8.9) L 07/30/19 04:35 Albumin 2.9 g/dL (3.5-5.7) L 07/30/19 04:35 Vancomycin Trough 15 mcg/mL (5-10) H 07/26/19 14:58 Microbiology, Last 48 Hours 07/29/19 14:10 Wound Culture - Preliminary Right Fifth Toe Culture is incubating. 07/29/19 14:10 Gram Stain - Final Right Fifth Toe 07/29/19 14:10 Anaerobic Culture - Preliminary Right Fifth Toe Culture is incubating. Consult Discharge Plan - Plan Referrals: Delphine Taylor CNP [Primary Care Provider] - 08/05/19 2:20 pm Marco Eden MD [Partnered Physician] - 08/16/19 9:45 am (This appointment is in [place] )
[2019-07-30] MEDS: Acetaminophen 325 MG TABLET PO PRN ×2 (17:11→23:29)
--- NOTE | 2019-07-30 17:46 | Infectious Disease Progress No ---
ID Progress Note Date of Encounter: 07/30/19 Time of Encounter: 17:43 - Subjective Subjective: Patient seen and examined. He seems to be doing okay clinically. Denies any RUBIO, no chest pain, no shortness of breath, no diarrhea. no urinary symptoms. VS noted Tmax 100.3 labs noted - Objective CBC & Chem 7: 07/30/19 04:35 07/30/19 04:35 - Exam Vitals: Temp Pulse Resp BP Pulse Ox 98.5 F 65 19 149/68 94 07/30/19 17:04 07/30/19 17:04 07/30/19 17:04 07/30/19 17:04 07/30/19 07:33 Exam: GENERAL: Comfortable. Laying in bed NAD HEENT: MARYURI, EOMI LUNGS: Good air sounds bilaterally, no wheezing or rhonchi CV: RRR, S1 S2 ABDOMEN: Soft, nontender, + bowel sounds EXT: I lateral feet are wrapped. I did not unwrap them I saw the pictures from the podiatry team NEURO: A&OX3; no focal deficit - Assessment and Plan (1) Osteomyelitis of fifth toe of right foot Current Visit: Yes Status: Acute CT of right lower extremity 07/22/2019: Interval fracture of the distal aspect of the 5th proximal phalanx with question of associated osteolysis. Pathologic fracture with underlying osteomyelitis cannot be excluded in the clinical setting of soft tissue infection of the 5th digit. ESR 20 cultures from the wound 07/09/19: MSSA and GBS Status post amputation right fifth toe 07/29/2019 Intra-Op cultures negative but Gram stain showing gram-positive cocci Patient continues to be on cefazolin/Flagyl await intra op cultures and path report duration of treatment depends on clinical picture and intra op findings monitor labs closely and for drug toxicity monitor kidney function adequate glucose control SNOMED Code(s): 129543102, 052849697, 0015027193885715 (2) Peripheral vascular disease Current Visit: Yes Status: Acute KASEY index 0.54 Status post right femoralabove-knee popliteal bypass graft 07/26/2019 Status post right popliteal endarterectomy 07/26/2019 Doing okay postop SNOMED Code(s): 234393671 (3) Tobacco abuse Current Visit: No Status: Chronic Patient requested a nicotine patch. We will let the nursing staff know SNOMED Code(s): 666563842 (4) Diabetic ulcer of foot associated with diabetes mellitus due to underlying condition, limited to breakdown of skin Current Visit: Yes Status: Chronic Qualifiers: Diabetic foot ulcer location: toe Laterality: right Qualified Code(s): E08.621 - Diabetes mellitus due to underlying condition with foot ulcer; L97.511 - Non-pressure chronic ulcer of other part of right foot limited to breakdown of skin SNOMED Code(s): 164258909, 050167856 (5) CAD (coronary artery disease) Current Visit: Yes Status: Chronic Qualifiers: Coronary Disease-Associated Artery/Lesion type: [place] artery [place] vs. transplanted heart: [place] heart Associated angina: without angina Qualified Code(s): I25.10 - Atherosclerotic heart disease of [place] coronary artery without angina pectoris SNOMED Code(s): 14280503 (6) Bradycardia Current Visit: Yes Status: Acute SNOMED Code(s): 97396606 (7) Diabetes mellitus type 2 in obese Current Visit: Yes Status: Acute most Recent A1C 7.4 SNOMED Code(s): 89589358 Consult Discharge Plan - Plan Referrals: Delphine Taylor CNP [Primary Care Provider] - 08/05/19 2:20 pm (Please follow up as schedule...) Marco Eden MD [Partnered Physician] - 08/16/19 9:45 am (This appointment is in [place] )
[2019-07-30] MEDS: Insulin DETEMIR 100 UNIT/ML X5UNITS SQ SCH (21:31)
[2019-07-31 03:19] LABS: Basophils # 0.1 K/mcL (0.0-0.2); Basophils % 0.8 %; Eosinophils # 0.4 K/mcL (0.0-0.6); Eosinophils % 4.6 %; Hematocrit 29.3 % (37.5-50.1); Hemoglobin 9.8 g/dL (12.9-16.9); Immature Granulocytes % 0.8 % (0-4); Lymphocytes # 1.7 K/mcL (0.6-4.6); Lymphocytes % 18.5 %; Mean Corpuscular HGB Conc 33.4 g/dL (31.6-35.5); Mean Corpuscular Hemoglobin 30.9 pg (28.0-33.3); Mean Corpuscular Volume 92.4 fL (83.0-100.0); Mean Platelet Volume 12.4 fL (9.4-12.4); Monocytes % 11.1 %; Platelet Count 190 K/mcL (140-400); Red Blood Count 3.17 M/mcL (4.19-5.50); Red Cell Distribution Width 14.2 % (11.5-14.5); Segmented Neutrophils % 64.2 %; White Blood Count 9.3 K/mcL (4.3-11.1)
[2019-07-31 03:32] LABS: Alanine Aminotransferase 17 Units/L (7-52); Albumin 2.6 g/dL (3.5-5.7); Albumin/Globulin Ratio 1.2 (1.1-2.2); Alkaline Phosphatase 50 Units/L (34-104); Aspartate Amino Transferase 18 Units/L (13-39); BUN/Creatinine Ratio 22 (6-26); Bilirubin,Total 0.6 mg/dL (0.3-1.0); Blood Urea Nitrogen 12 mg/dL (6-20); Calcium 7.8 mg/dL (8.6-10.3); Carbon Dioxide 24 mEq/L (23-29); Chloride 106 mEq/L (98-107); Globulin 2.2 g/dL (2.4-3.5); Glucose 147 mg/dL (70-105); Osmolality,Calculated 288 (280-300); Potassium 3.3 mEq/L (3.5-5.1); Sodium 138 mEq/L (136-145); Total Protein 4.8 g/dL (6.4-8.9); eGFR For African Americans > 60 (> 60); eGFR For Non-African Americans > 60 (> 60)
[2019-07-31] MEDS: *HR* Heparin 5,000 UNIT/ML VIAL SQ SCH ×2 (05:31→17:49)
[2019-07-31] MEDS: Pregabalin 75 MG CAPSULE PO SCH ×2 (09:40→20:57)
[2019-07-31] MEDS: Lisinopril 20 MG TABLET PO SCH (09:41)
[2019-07-31] MEDS: amLODIPine 5 MG TABLET PO SCH (09:41)
[2019-07-31] MEDS: Aspirin Enteric Coated 81 MG Tablet PO SCH (09:41)
[2019-07-31] MEDS: Nicotine 21 MG PATCH.TD24 TD SCH (09:42)
[2019-07-31] MEDS: Insulin LISPRO 300 UNITS/3 ML VIAL SQ SCH ×4 (09:43→21:03)
[2019-07-31] MEDS: MetroNIDAZOLE 500 MG/100 ML 500 MG/100 ML BAG IVPB SCH ×3 (09:44→23:46)
--- NOTE | 2019-07-31 10:49 | Internal Med Progress Note ---
<Aileen Hein E - Last Filed: 07/31/19 10:49> Hospitalist Progress Note - Encounter Date of Encounter: 07/31/19 - Exam Vitals: Temp Pulse Resp BP Pulse Ox 98.5 F 63 16 146/68 99 07/31/19 07:47 07/31/19 07:47 07/31/19 07:47 07/31/19 07:47 07/31/19 03:30 - Assessment and Plan (1) Sinus bradycardia Current Visit: Yes Status: Acute (2) Diabetes 1.5, managed as type 2 Current Visit: Yes Status: Chronic (3) Essential (primary) hypertension Current Visit: Yes Status: Chronic (4) Diabetic ulcer of foot associated with diabetes mellitus due to underlying condition, limited to breakdown of skin Current Visit: Yes Status: Chronic (5) Osteomyelitis of fifth toe of right foot Current Visit: Yes Status: Acute (6) CAD (coronary artery disease) Current Visit: Yes Status: Chronic (7) DVT prophylaxis Current Visit: Yes Status: Acute - Time Spent with Patient Total time spent is greater than 50% in coordination of care (as documented) at patient's floor/unit and/or counseling patient: Internal Medicine: Result - Labs CBC & Chem 7: 07/31/19 02:27 07/31/19 02:27 Labs: Short CBC 07/31/19 Range/Units 02:27 WBC 9.3 (4.3-11.1) K/mcL Hgb 9.8 L (12.9-16.9) g/dL Hct 29.3 L (37.5-50.1) % Plt Count 190 (140-400) K/mcL Neutrophils # 6.0 (1.6-8.9) K/mcL BMP 07/31/19 02:27 Sodium 138 Potassium 3.3 L Chloride 106 Carbon Dioxide 24 BUN 12 Creatinine 0.55 L Glucose 147 H Calcium 7.8 L Liver Function 07/31/19 Range/Units 02:27 Total Bilirubin 0.6 (0.3-1.0) mg/dL AST 18 (13-39) Units/L ALT 17 (7-52) Units/L Alkaline Phosphatase 50 (34-104) Units/L Albumin 2.6 L (3.5-5.7) g/dL - ABG Interpretation ABG results: PT/INR, D-dimer PT 12.4 Seconds (9.4-12.1) H 07/29/19 03:41 Consult Discharge Plan - Plan Referrals: Delphine Taylor CNP [Primary Care Provider] - 08/05/19 2:20 pm (Please follow up as schedule...) Marco dEen MD [Partnered Physician] - 08/16/19 9:45 am (This appointment is in [place] ) <Araceli Lunsford - Last Filed: 07/31/19 13:21> Hospitalist Progress Note - Encounter Date of Encounter: 07/31/19 - Exam Vitals: Temp Pulse Resp BP Pulse Ox 97.9 F 66 16 148/75 99 07/31/19 11:55 07/31/19 11:55 07/31/19 11:55 07/31/19 11:55 07/31/19 03:30 - Assessment and Plan (1) Diabetes 1.5, managed as type 2 Current Visit: Yes Status: Chronic (2) Essential (primary) hypertension Current Visit: Yes Status: Chronic (3) Diabetic ulcer of foot associated with diabetes mellitus due to underlying condition, limited to breakdown of skin Current Visit: Yes Status: Chronic (4) Foot osteomyelitis, right Current Visit: Yes Status: Suspected (5) CAD (coronary artery disease) Current Visit: Yes Status: Chronic - Time Spent with Patient Total time spent is greater than 50% in coordination of care (as documented) at patient's floor/unit and/or counseling patient: Internal Medicine: Result - Labs CBC & Chem 7: 07/31/19 02:27 07/31/19 02:27 Labs: Short CBC 07/31/19 Range/Units 02:27 WBC 9.3 (4.3-11.1) K/mcL Hgb 9.8 L (12.9-16.9) g/dL Hct 29.3 L (37.5-50.1) % Plt Count 190 (140-400) K/mcL Neutrophils # 6.0 (1.6-8.9) K/mcL BMP 07/31/19 02:27 Sodium 138 Potassium 3.3 L Chloride 106 Carbon Dioxide 24 BUN 12 Creatinine 0.55 L Glucose 147 H Calcium 7.8 L Liver Function 07/31/19 Range/Units 02:27 Total Bilirubin 0.6 (0.3-1.0) mg/dL AST 18 (13-39) Units/L ALT 17 (7-52) Units/L Alkaline Phosphatase 50 (34-104) Units/L Albumin 2.6 L (3.5-5.7) g/dL - ABG Interpretation ABG results: PT/INR, D-dimer PT 12.4 Seconds (9.4-12.1) H 07/29/19 03:41 - Attending Attestation I saw evaluated and examined this patient and reviewed objective data including labs and my medical decision-making was reviewed with the Resident Physician. I agree with the documented findings, disposition and treatment plan as described except to any changes set forth below. We independently had [id number] contact with the patient. No complaints, no acute events. Denies fevers, chills, n/v. VS: reviewed. Physical exam: NAD, AAO x3, CVS: RRR, Ext: feet in dressing, clean, no discharge or signs of bleeding. Labs: reviewed. WBC improving now within normal limits. BMP unremarkable. Wound culture: Prelim + staph aureus. Continue Ancef, Flagyl. Await final cultures. <Aileen Hein E - Last Filed: 07/31/19 10:49> (4) Diabetic ulcer of foot associated with diabetes mellitus due to underlying condition, limited to breakdown of skin Qualifiers: Diabetic foot ulcer location: toe Laterality: right Qualified Code(s): E08.621 - Diabetes mellitus due to underlying condition with foot ulcer; L97.511 - Non-pressure chronic ulcer of other part of right foot limited to breakdown of skin (6) CAD (coronary artery disease) Qualifiers: Coronary Disease-Associated Artery/Lesion type: [place] artery [place] vs. transplanted heart: [place] heart Associated angina: without angina Qualified Code(s): I25.10 - Atherosclerotic heart disease of [place] coronary artery without angina pectoris <Araceli Lunsford - Last Filed: 07/31/19 13:21> (3) Diabetic ulcer of foot associated with diabetes mellitus due to underlying condition, limited to breakdown of skin Qualifiers: Diabetic foot ulcer location: toe Laterality: right Qualified Code(s): E08.621 - Diabetes mellitus due to underlying condition with foot ulcer; L97.511 - Non-pressure chronic ulcer of other part of right foot limited to breakdown of skin (4) Foot osteomyelitis, right Qualifiers: Osteomyelitis type: unspecified type Qualified Code(s): M86.9 - Osteomyelitis, unspecified (5) CAD (coronary artery disease) Qualifiers: Coronary Disease-Associated Artery/Lesion type: [place] artery [place] vs. transplanted heart: [place] heart Associated angina: without angina Qualified Code(s): I25.10 - Atherosclerotic heart disease of [place] coronary artery without angina pectoris
[2019-07-31] MEDS: Acetaminophen 325 MG TABLET PO PRN (12:40)
--- NOTE | 2019-07-31 17:22 | Internal Med Progress Note ---
Hospitalist Progress Note - Encounter Date of Encounter: 07/31/19 Time of Encounter: 10:00 - Subjective Interval History: Mr. Santana is a 51-year-old male who is status post femoropopliteal bypass July 26 and status post fifth toe amputation July 29 Patient was seen and examined at bedside today and is doing well, states he still has some pain in his upper thigh from the right femoropopliteal bypass. He denies any chest pain, shortness of breath, abdominal pain, nausea, vomiting, diarrhea, weakness, calf pain - Exam Vitals: Temp Pulse Resp BP Pulse Ox 98.6 F 63 19 155/62 99 07/31/19 16:35 07/31/19 16:35 07/31/19 16:35 07/31/19 16:35 07/31/19 03:30 Exam: General: AAO 3, in no acute distress, answers questions appropriately Head: normocephalic, atraumatic Eyes: DAVID, no icterus Cardio: RRR, no murmurs, rubs, or gallops Respiratory: CTAB, no wheezing, rhonchi, rales Abd: normal bowel sounds, no guarding or rigidity Extremities: no pedal edema, pulses equal bilaterally, warm, bilateral feet wrapped in clean dressing with no drainage noted Skin: warm, dry, intact - Assessment and Plan (1) Sinus bradycardia Current Visit: Yes Status: Acute Assessment and Plan: Hold beta sridevi will be discontinued from patient's home medication list (2) Diabetes 1.5, managed as type 2 Current Visit: Yes Status: Chronic Assessment and Plan: Well controlled Continue Levemir 40 units at night as well as sliding scale insulin Continue to monitor blood glucose levels (3) Essential (primary) hypertension Current Visit: Yes Status: Chronic Assessment and Plan: Controlled at this time Continue amlodipine 10 mg Continue to monitor blood pressures (4) Diabetic ulcer of foot associated with diabetes mellitus due to underlying condition, limited to breakdown of skin Current Visit: Yes Status: Chronic Assessment and Plan: Continue Ancef and Flagyl Wound grew Garcia-sensitive Staph Aureus ID has been consulted - appreciate recommendations Podiatry following Continue wound care as per podiatry Awaiting culture results Boots have been ordered for support as well as bed assistant passenger locomotive engineer to make sure there are no pressure sites (5) Osteomyelitis of fifth toe of right foot Current Visit: Yes Status: Acute Assessment and Plan: ID consulted - appreciate recommendations Right fifth toe amputation postop day 1 Continue wound care as per podiatry Need home IV antibiotics (6) CAD (coronary artery disease) Current Visit: Yes Status: Chronic Assessment and Plan: Patient currently on aspirin, Plavix, statin Toprol discontinued due to bradycardia Stable (7) DVT prophylaxis Current Visit: Yes Status: Acute Assessment and Plan: Subcutaneous heparin DVT Prophylaxis: Subcutaneous heparin - Time Spent with Patient Total time spent is greater than 50% in coordination of care (as documented) at patient's floor/unit and/or counseling patient: Internal Medicine: Result - Labs CBC & Chem 7: 07/31/19 02:27 07/31/19 02:27 Labs: Short CBC 07/31/19 Range/Units 02:27 WBC 9.3 (4.3-11.1) K/mcL Hgb 9.8 L (12.9-16.9) g/dL Hct 29.3 L (37.5-50.1) % Plt Count 190 (140-400) K/mcL Neutrophils # 6.0 (1.6-8.9) K/mcL BMP 07/31/19 02:27 Sodium 138 Potassium 3.3 L Chloride 106 Carbon Dioxide 24 BUN 12 Creatinine 0.55 L Glucose 147 H Calcium 7.8 L Liver Function 07/31/19 Range/Units 02:27 Total Bilirubin 0.6 (0.3-1.0) mg/dL AST 18 (13-39) Units/L ALT 17 (7-52) Units/L Alkaline Phosphatase 50 (34-104) Units/L Albumin 2.6 L (3.5-5.7) g/dL - ABG Interpretation ABG results: PT/INR, D-dimer PT 12.4 Seconds (9.4-12.1) H 07/29/19 03:41 Consult Discharge Plan - Plan Referrals: Delphine Taylor CNP [Primary Care Provider] - 08/05/19 2:20 pm (Please follow up as schedule...) Marco Eden MD [Partnered Physician] - 08/16/19 9:45 am (This appointment is in [place] ) (4) Diabetic ulcer of foot associated with diabetes mellitus due to underlying condition, limited to breakdown of skin Qualifiers: Diabetic foot ulcer location: toe Laterality: right Qualified Code(s): E08.621 - Diabetes mellitus due to underlying condition with foot ulcer; L97.511 - Non-pressure chronic ulcer of other part of right foot limited to breakdown of skin (6) CAD (coronary artery disease) Qualifiers: Coronary Disease-Associated Artery/Lesion type: [place] artery [place] vs. transplanted heart: [place] heart Associated angina: without angina Qualified Code(s): I25.10 - Atherosclerotic heart disease of [place] coronary artery wi thout angina pectoris
[2019-07-31] MEDS: Insulin DETEMIR 100 UNIT/ML X5UNITS SQ SCH (21:02)
[2019-08-01] MEDS: Acetaminophen 325 MG TABLET PO PRN ×2 (00:04→11:45)
[2019-08-01] MEDS: *HR* Heparin 5,000 UNIT/ML VIAL SQ SCH ×2 (05:20→17:01)
[2019-08-01 05:37] LABS: Basophils # 0.1 K/mcL (0.0-0.2); Basophils % 0.9 %; Eosinophils # 0.5 K/mcL (0.0-0.6); Eosinophils % 5.4 %; Hematocrit 28.4 % (37.5-50.1); Hemoglobin 9.4 g/dL (12.9-16.9); Immature Granulocytes % 0.8 % (0-4); Lymphocytes # 1.9 K/mcL (0.6-4.6); Lymphocytes % 19.9 %; Mean Corpuscular HGB Conc 33.1 g/dL (31.6-35.5); Mean Corpuscular Volume 93.7 fL (83.0-100.0); Mean Platelet Volume 11.7 fL (9.4-12.4); Monocytes # 1.2 K/mcL (0.0-1.3); Neutrophils # 5.9 K/mcL (1.6-8.9); Platelet Count 201 K/mcL (140-400); Red Blood Count 3.03 M/mcL (4.19-5.50); Red Cell Distribution Width 14.3 % (11.5-14.5); White Blood Count 9.7 K/mcL (4.3-11.1)
[2019-08-01 05:58] LABS: Alanine Aminotransferase 13 Units/L (7-52); Albumin 2.6 g/dL (3.5-5.7); Albumin/Globulin Ratio 1.1 (1.1-2.2); Alkaline Phosphatase 54 Units/L (34-104); Aspartate Amino Transferase 16 Units/L (13-39); BUN/Creatinine Ratio 18 (6-26); Bilirubin,Total 0.6 mg/dL (0.3-1.0); Blood Urea Nitrogen 11 mg/dL (6-20); Calcium 7.8 mg/dL (8.6-10.3); Carbon Dioxide 27 mEq/L (23-29); Chloride 105 mEq/L (98-107); Globulin 2.3 g/dL (2.4-3.5); Glucose 146 mg/dL (70-105); Osmolality,Calculated 290 (280-300); Potassium 3.2 mEq/L (3.5-5.1); Sodium 139 mEq/L (136-145); Total Protein 4.9 g/dL (6.4-8.9); eGFR For African Americans > 60 (> 60); eGFR For Non-African Americans > 60 (> 60)
--- NOTE | 2019-08-01 08:50 | Internal Med Progress Note ---
<Araceli Lunsford - Last Filed: 08/01/19 13:03> Hospitalist Progress Note - Encounter Date of Encounter: 08/01/19 - Exam Vitals: Temp Pulse Resp BP Pulse Ox 98.2 F 65 16 141/66 95 08/01/19 10:56 08/01/19 10:56 08/01/19 10:56 08/01/19 10:56 07/31/19 23:45 - Assessment and Plan (1) Diabetes 1.5, managed as type 2 Current Visit: Yes Status: Chronic (2) Essential (primary) hypertension Current Visit: Yes Status: Chronic (3) Diabetic ulcer of foot associated with diabetes mellitus due to underlying condition, limited to breakdown of skin Current Visit: Yes Status: Chronic (4) Foot osteomyelitis, right Current Visit: Yes Status: Suspected (5) CAD (coronary artery disease) Current Visit: Yes Status: Chronic - Time Spent with Patient Total time spent is greater than 50% in coordination of care (as documented) at patient's floor/unit and/or counseling patient: Internal Medicine: Result - Labs CBC & Chem 7: 08/01/19 05:19 08/01/19 05:19 Labs: Short CBC 08/01/19 Range/Units 05:19 WBC 9.7 (4.3-11.1) K/mcL Hgb 9.4 L (12.9-16.9) g/dL Hct 28.4 L (37.5-50.1) % Plt Count 201 (140-400) K/mcL Neutrophils # 5.9 (1.6-8.9) K/mcL BMP 08/01/19 05:19 Sodium 139 Potassium 3.2 L Chloride 105 Carbon Dioxide 27 BUN 11 Creatinine 0.62 L Glucose 146 H Calcium 7.8 L Liver Function 08/01/19 Range/Units 05:19 Total Bilirubin 0.6 (0.3-1.0) mg/dL AST 16 (13-39) Units/L ALT 13 (7-52) Units/L Alkaline Phosphatase 54 (34-104) Units/L Albumin 2.6 L (3.5-5.7) g/dL - ABG Interpretation ABG results: PT/INR, D-dimer PT 12.4 Seconds (9.4-12.1) H 07/29/19 03:41 Consult Discharge Plan - Plan Referrals: Delphine Taylor CNP [Primary Care Provider] - 08/05/19 2:20 pm (Please follow up as schedule...) Marco Eden MD [Partnered Physician] - 08/16/19 9:45 am (This appointment is in [place] ) - Attending Attestation I saw evaluated and examined this patient and reviewed objective data including labs and my medical decision-making was reviewed with the Resident Physician. I agree with the documented findings, disposition and treatment plan as described except to any changes set forth below. We independently had [id number] contact with the patient. No complaints, no acute events. Denies fevers. physical exam: NAD, CVS: RRR, lungs: CTAB, ext wrapped and dressings clean. VS: reviewed, labs: reviewed. Continue current therapy and antibiotics. OM causative organism likely MSSA based on final wound cultures. Continue Ancef, Flagyl for now. Dispo: IV antibiotic setup in 2 days when set up services are available. <Aileen Hein E - Last Filed: 08/01/19 13:17> Hospitalist Progress Note - Encounter Date of Encounter: 08/01/19 Time of Encounter: 09:45 - Subjective Interval History: Mr. Santana is a 51-year-old male who is status post femoropopliteal bypass July 26 and status post fifth toe amputation on July 29 Patient was seen and examined at bedside today and is doing well, states the pain in his upper thigh has decreased, he denies any chest pain, shortness of breath, abdominal pain, nausea, vomiting, diarrhea, weakness, calf pain - Exam Vitals: Temp Pulse Resp BP Pulse Ox 98.3 F 60 16 127/80 95 08/01/19 07:57 08/01/19 07:57 08/01/19 07:57 08/01/19 07:57 07/31/19 23:45 Exam: General: AAO 3, in no acute distress, answers questions appropriately Head: normocephalic, atraumatic Eyes: DAVID, no icterus Cardio: RRR, no murmurs, rubs, or gallops Respiratory: CTAB, no wheezing, rhonchi, rales Abd: normal bowel sounds, no guarding or rigidity Extremities: no pedal edema, pulses equal bilaterally, warm, bilateral feet w rapped in clean dressing with no drainage noted Skin: warm, dry, intact - Assessment and Plan (1) Osteomyelitis of fifth toe of right foot Current Visit: Yes Status: Acute Assessment and Plan: ID consulted - appreciate recommendations Right fifth toe amputation postop day 1 Continue wound care as per podiatry Need home IV antibiotics (2) Sinus bradycardia Current Visit: Yes Status: Resolved Assessment and Plan: Hold beta srideiv will be discontinued from patient's home medication list (3) Diabetic ulcer of foot associated with diabetes mellitus due to underlying condition, limited to breakdown of skin Current Visit: Yes Status: Chronic Assessment and Plan: Continue Ancef and Flagyl Wound grew Garcia-sensitive Staph Aureus ID has been consulted - appreciate recommendations Podiatry following Continue wound care as per podiatry Awaiting culture results Boots have been ordered for support as well as bed warehouse stocker to make sure there are no pressure sites (4) Diabetes 1.5, managed as type 2 Current Visit: Yes Status: Chronic Assessment and Plan: Well controlled Continue Levemir 40 units at night as well as sliding scale insulin Continue to monitor blood glucose levels (5) Essential (primary) hypertension Current Visit: Yes Status: Chronic Assessment and Plan: Controlled at this time Continue amlodipine 10 mg Continue to monitor blood pressures (6) CAD (coronary artery disease) Current Visit: Yes Status: Chronic Assessment and Plan: Patient currently on aspirin, Plavix, statin Toprol discontinued due to bradycardia Stable (7) DVT prophylaxis Current Visit: Yes Status: Acute Assessment and Plan: Subcutaneous heparin - Time Spent with Patient Total time spent is greater than 50% in coordination of care (as documented) at patient's floor/unit and/or counseling patient: Internal Medicine: Result - Labs CBC & Chem 7: 08/01/19 05:19 08/01/19 05:19 Labs: Short CBC 08/01/19 Range/Units 05:19 WBC 9.7 (4.3-11.1) K/mcL Hgb 9.4 L (12.9-16.9) g/dL Hct 28.4 L (37.5-50.1) % Plt Count 201 (140-400) K/mcL Neutrophils # 5.9 (1.6-8.9) K/mcL BMP 08/01/19 05:19 Sodium 139 Potassium 3.2 L Chloride 105 Carbon Dioxide 27 BUN 11 Creatinine 0.62 L Glucose 146 H Calcium 7.8 L Liver Function 08/01/19 Range/Units 05:19 Total Bilirubin 0.6 (0.3-1.0) mg/dL AST 16 (13-39) Units/L ALT 13 (7-52) Units/L Alkaline Phosphatase 54 (34-104) Units/L Albumin 2.6 L (3.5-5.7) g/dL - ABG Interpretation ABG results: PT/INR, D-dimer PT 12.4 Seconds (9.4-12.1) H 07/29/19 03:41 <Araceli Lunsford - Last Filed: 08/01/19 13:03> (3) Diabetic ulcer of foot associated with diabetes mellitus due to underlying condition, limited to breakdown of skin Qualifiers: Diabetic foot ulcer location: toe Laterality: right Qualified Code(s): E08.621 - Diabetes mellitus due to underlying condition with foot ulcer; L97.511 - Non-pressure chronic ulcer of other part of right foot limited to breakdown of skin (4) Foot osteomyelitis, right Qualifiers: Osteomyelitis type: unspecified type Qualified Code(s): M86.9 - Osteomyelitis, unspecified (5) CAD (coronary artery disease) Qualifiers: Coronary Disease-Associated Artery/Lesion type: [place] artery [place] vs. transplanted heart: [place] heart Associated angina: without angina Qualified Code(s): I25.10 - Atherosclerotic heart disease of [place] coronary artery without angina pectoris <Aileen Hein - Last Filed: 08/01/19 13:17> (3) Diabetic ulcer of foot associated with diabetes mellitus due to underlying condition, limited to breakdown of skin Qualifiers: Diabetic foot ulcer location: toe Laterality: right Qualified Code(s): E08. 621 - Diabetes mellitus due to underlying condition with foot ulcer; L97.511 - Non-pressure chronic ulcer of other part of right foot limited to breakdown of skin (6) CAD (coronary artery disease) Qualifiers: Coronary Disease-Associated Artery/Lesion type: [place] artery [place] vs. transplanted heart: [place] heart Associated angina: without angina Qualified Code(s): I25.10 - Atherosclerotic heart disease of [place] coronary artery without angina pectoris
[2019-08-01] MEDS: Lisinopril 20 MG TABLET PO SCH (09:03)
[2019-08-01] MEDS: Pregabalin 75 MG CAPSULE PO SCH ×2 (09:03→21:07)
[2019-08-01] MEDS: Aspirin Enteric Coated 81 MG Tablet PO SCH (09:04)
[2019-08-01] MEDS: amLODIPine 5 MG TABLET PO SCH (09:04)
[2019-08-01] MEDS: Nicotine 21 MG PATCH.TD24 TD SCH (09:04)
[2019-08-01] MEDS: MetroNIDAZOLE 500 MG/100 ML 500 MG/100 ML BAG IVPB SCH ×2 (09:05→15:39)
[2019-08-01] MEDS: Insulin LISPRO 300 UNITS/3 ML VIAL SQ SCH ×4 (09:06→21:06)
[2019-08-01] MEDS: Insulin DETEMIR 100 UNIT/ML X5UNITS SQ SCH (21:08)
[2019-08-02] MEDS: Acetaminophen 325 MG TABLET PO PRN ×2 (00:01→08:16)
[2019-08-02] MEDS: MetroNIDAZOLE 500 MG/100 ML 500 MG/100 ML BAG IVPB SCH ×3 (00:03→15:18)
[2019-08-02] MEDS: *HR* Heparin 5,000 UNIT/ML VIAL SQ SCH ×2 (05:41→16:55)
[2019-08-02 06:48] LABS: Basophils # 0.1 K/mcL (0.0-0.2); Basophils % 1.1 %; Eosinophils # 0.6 K/mcL (0.0-0.6); Eosinophils % 5.8 %; Hematocrit 30.3 % (37.5-50.1); Hemoglobin 9.9 g/dL (12.9-16.9); Lymphocytes % 20.8 %; Mean Corpuscular HGB Conc 32.7 g/dL (31.6-35.5); Mean Corpuscular Hemoglobin 30.3 pg (28.0-33.3); Mean Corpuscular Volume 92.7 fL (83.0-100.0); Mean Platelet Volume 11.5 fL (9.4-12.4); Monocytes # 1.2 K/mcL (0.0-1.3); Monocytes % 12.3 %; Neutrophils # 5.7 K/mcL (1.6-8.9); Platelet Count 219 K/mcL (140-400); Red Blood Count 3.27 M/mcL (4.19-5.50); Red Cell Distribution Width 14.2 % (11.5-14.5); White Blood Count 9.6 K/mcL (4.3-11.1)
[2019-08-02 07:09] LABS: Alanine Aminotransferase 18 Units/L (7-52); Albumin 2.8 g/dL (3.5-5.7); Albumin/Globulin Ratio 1.1 (1.1-2.2); Alkaline Phosphatase 57 Units/L (34-104); Aspartate Amino Transferase 28 Units/L (13-39); BUN/Creatinine Ratio 15 (6-26); Bilirubin,Total 0.6 mg/dL (0.3-1.0); Blood Urea Nitrogen 11 mg/dL (6-20); Calcium 8.3 mg/dL (8.6-10.3); Carbon Dioxide 28 mEq/L (23-29); Chloride 105 mEq/L (98-107); Globulin 2.5 g/dL (2.4-3.5); Glucose 142 mg/dL (70-105); Osmolality,Calculated 290 (280-300); Potassium 3.8 mEq/L (3.5-5.1); Sodium 139 mEq/L (136-145); Total Protein 5.3 g/dL (6.4-8.9); eGFR For African Americans > 60 (> 60); eGFR For Non-African Americans > 60 (> 60)
[2019-08-02] MEDS: Insulin LISPRO 300 UNITS/3 ML VIAL SQ SCH ×4 (07:52→20:38)
[2019-08-02] MEDS: Aspirin Enteric Coated 81 MG Tablet PO SCH (08:09)
[2019-08-02] MEDS: Lisinopril 20 MG TABLET PO SCH (08:09)
[2019-08-02] MEDS: amLODIPine 5 MG TABLET PO SCH (08:09)
[2019-08-02] MEDS: Pregabalin 75 MG CAPSULE PO SCH ×2 (08:09→22:21)
[2019-08-02] MEDS: Nicotine 21 MG PATCH.TD24 TD SCH (08:10)
--- NOTE | 2019-08-02 09:52 | Internal Med Progress Note ---
<Aileen Hein E - Last Filed: 08/02/19 12:51> Hospitalist Progress Note - Encounter Date of Encounter: 08/02/19 Time of Encounter: 09:00 - Subjective Interval History: Mr. Santana is a 59 year old male initially admitted for osteomylitis, status post femoral popiteal bypass 07/26 and status post 5th toe amputation 07/28 Patient was erica dn examined at bedside today. Patient is doing well and status his upper thigh pain has decreased. He does note that he has more bumps in the area of his bypass graft area. he denies any chest pain, shortness of breath, abdominal pain, nausea, vomiting, diarrhea, weakness, calf pain - Exam Vitals: Temp Pulse Resp BP Pulse Ox 97.9 F 65 16 145/74 94 08/02/19 07:47 08/02/19 07:47 08/02/19 07:47 08/02/19 07:47 08/02/19 07:47 Exam: General: AAO 3, in no acute distress, answers questions appropriately Head: normocephalic, atraumatic Eyes: DAVID, no icterus Cardio: RRR, no murmurs, rubs, or gallops Respiratory: CTAB, no wheezing, rhonchi, rales Abd: normal bowel sounds, no guarding or rigidity Extremities: no pedal edema, pulses equal bilaterally, warm, bilateral feet wrapped in clean dressing with no drainage noted Skin: warm, dry, intact: noted a new line of localized pustules containing clear fluid - Assessment and Plan (1) Osteomyelitis of fifth toe of right foot Current Visit: Yes Status: Acute Assessment and Plan: ID consulted - appreciate recommendations Right fifth toe amputation 07/28 Continue wound care as per podiatry Need outpatient IV antibiotics (2) Sinus bradycardia Current Visit: Yes Status: Resolved Assessment and Plan: Hold beta sridevi will be discontinued from patient's home medication list (3) Diabetic ulcer of foot associated with diabetes mellitus due to underlying condition, limited to breakdown of skin Current Visit: Yes Status: Chronic Assessment and Plan: Continue Ancef and Flagyl Wound grew Garcia-sensitive Staph Aureus ID has been consulted - appreciate recommendations Podiatry following Continue wound care as per podiatry Awaiting culture results Boots have been ordered for support as well as bed policy writer sales to make sure there are no pressure sites (4) Diabetes 1.5, managed as type 2 Current Visit: Yes Status: Chronic Assessment and Plan: Well controlled Continue Levemir 40 units at night as well as sliding scale insulin Continue to monitor blood glucose levels (5) Essential (primary) hypertension Current Visit: Yes Status: Chronic Assessment and Plan: Controlled at this time Continue amlodipine 10 mg Continue to monitor blood pressures (6) CAD (coronary artery disease) Current Visit: Yes Status: Chronic Assessment and Plan: Patient currently on aspirin, Plavix, statin Toprol discontinued due to bradycardia Stable (7) DVT prophylaxis Current Visit: Yes Status: Acute Assessment and Plan: Subcutaneous heparin (8) Skin pustule Current Visit: Yes Status: Acute Assessment and Plan: New eruption skin pustule/bulle in approxamately 7cm line of 6 pustules varrying in size from 3mm to 10mm in size. These are localized to approximately 1-2 inches from graft site from fem/pop bypass Area is nontender, initial area is open and draining clear fluid Would culture with viral and bacterial ordered as well as PCR for shingles Differentials include- localized reaction, infectious etiology ie bacterial or viral such as herpes zoster DVT Prophylaxis: Subcutaneous heparin - Time Spent with Patient Total time spent is greater than 50% in coordination of care (as documented) at patient's floor/unit and/or counseling patient: Internal Medicine: Result - Labs CBC & Chem 7: 08/02/19 06:29 08/02/19 06:29 Labs: Short CBC 08/02/19 Range/Units 06:29 WBC 9.6 (4.3-11.1) K/mcL Hgb 9.9 L (12.9-16.9) g/dL Hct 30.3 L (37.5-50.1) % Plt Count 219 (140-400) K/mcL Neutrophils # 5.7 (1.6-8.9) K/mcL BMP 08/02/19 06:29 Sodium 139 Potassium 3.8 Chloride 105 Carbon Dioxide 28 BUN 11 Creatinine 0.72 Glucose 142 H Calcium 8.3 L Liver Function 08/02/19 Range/Units 06:29 Total Bilirubin 0.6 (0.3-1.0) mg/dL AST 28 (13-39) Units/L ALT 18 (7-52) Units/L Alkaline Phosphatase 57 (34-104) Units/L Albumin 2.8 L (3.5-5.7) g/dL - ABG Interpretation ABG results: PT/INR, D-dimer PT 12.4 Seconds (9.4-12.1) H 07/29/19 03:41 Consult Discharge Plan - Plan Referrals: Delphine Taylor CNP [Primary Care Provider] - 08/05/19 2:20 pm (Please follow up as schedule...) Marco Eden MD [Partnered Physician] - 08/16/19 9:45 am (This appointment is in [place] ) <Araceli Lunsford - Last Filed: 08/02/19 15:46> Hospitalist Progress Note - Encounter Date of Encounter: 08/02/19 - Exam Vitals: Temp Pulse Resp BP Pulse Ox 97.9 F 57 18 137/65 94 08/02/19 11:39 08/02/19 11:39 08/02/19 11:39 08/02/19 11:39 08/02/19 11:39 - Assessment and Plan (1) Diabetes 1.5, managed as type 2 Current Visit: Yes Status: Chronic (2) Essential (primary) hypertension Current Visit: Yes Status: Chronic (3) Diabetic ulcer of foot associated with diabetes mellitus due to underlying condition, limited to breakdown of skin Current Visit: Yes Status: Chronic (4) Foot osteomyelitis, right Current Visit: Yes Status: Suspected (5) CAD (coronary artery disease) Current Visit: Yes Status: Chronic - Time Spent with Patient Total time spent is greater than 50% in coordination of care (as documented) at patient's floor/unit and/or counseling patient: Internal Medicine: Result - Labs CBC & Chem 7: 08/02/19 06:29 08/02/19 06:29 Labs: Short CBC 08/02/19 Range/Units 06:29 WBC 9.6 (4.3-11.1) K/mcL Hgb 9.9 L (12.9-16.9) g/dL Hct 30.3 L (37.5-50.1) % Plt Count 219 (140-400) K/mcL Neutrophils # 5.7 (1.6-8.9) K/mcL BMP 08/02/19 06:29 Sodium 139 Potassium 3.8 Chloride 105 Carbon Dioxide 28 BUN 11 Creatinine 0.72 Glucose 142 H Calcium 8.3 L Liver Function 08/02/19 Range/Units 06:29 Total Bilirubin 0.6 (0.3-1.0) mg/dL AST 28 (13-39) Units/L ALT 18 (7-52) Units/L Alkaline Phosphatase 57 (34-104) Units/L Albumin 2.8 L (3.5-5.7) g/dL - ABG Interpretation ABG results: PT/INR, D-dimer PT 12.4 Seconds (9.4-12.1) H 07/29/19 03:41 - Attending Attestation I saw evaluated and examined this patient and reviewed objective data including labs and my medical decision-making was reviewed with the Resident Physician. I agree with the documented findings, disposition and treatment plan as described except to any changes set forth below. We independently had [id number] contact with the patient. <Aileen Hein - Last Filed: 08/02/19 12:51> (3) Diabetic ulcer of foot associated with diabetes mellitus due to underlying condition, limited to breakdown of skin Qualifiers: Diabetic foot ulcer location: toe Laterality: right Qualified Code(s): E08.621 - Diabetes mellitus due to underlying condition with foot ulcer; L97.511 - Non-pressure chronic ulcer of other part of right foot limited to breakdown of skin (6) CAD (coronary artery disease) Qualifiers: Coronary Disease-Associated Artery/Lesion type: [place] artery [place] vs. transplanted heart: [place] heart Associated angina: without angina Qualified Code(s): I25.10 - Atherosclerotic heart disease of [place] coronary artery without angina pectoris <Araceli Lunsford - Last Filed: 08/02/19 15:46> (3) Diabetic ulcer of foot associated with diabetes mellitus due to underlying condition, limited to breakdown of skin Qualifiers: Diabetic foot ulcer location: toe Laterality: right Qualified Code(s): E08.621 - Diabetes mellitus due to underlying condition with foot ulcer; L97.511 - Non-pressure chronic ulcer of other part of right foot limited to breakdown of skin (4) Foot osteomyelitis, right Qualifiers: Osteomyelitis type: unspecified type Qualified Code(s): M86.9 - Osteomyelitis, unspecified (5) CAD (coronary artery disease) Qualifiers: Coronary Disease-Associated Artery/Lesion type: [place] artery [place] vs. transplanted heart: [place] heart Associated angina: without angina Qualified Code(s): I25.10 - Atherosclerotic heart disease of [place] coronary artery without angina pectoris
[2019-08-02] MEDS: Insulin DETEMIR 100 UNIT/ML X5UNITS SQ SCH (22:21)
[2019-08-03] MEDS: MetroNIDAZOLE 500 MG/100 ML 500 MG/100 ML BAG IVPB SCH ×2 (00:42→10:15)
[2019-08-03 04:13] LABS: Basophils # 0.1 K/mcL (0.0-0.2); Eosinophils # 0.5 K/mcL (0.0-0.6); Eosinophils % 4.6 %; Hematocrit 30.7 % (37.5-50.1); Hemoglobin 10.2 g/dL (12.9-16.9); Immature Granulocytes % 1.3 % (0-4); Lymphocytes # 2.1 K/mcL (0.6-4.6); Lymphocytes % 18.8 %; Mean Corpuscular HGB Conc 33.2 g/dL (31.6-35.5); Mean Corpuscular Hemoglobin 30.7 pg (28.0-33.3); Mean Corpuscular Volume 92.5 fL (83.0-100.0); Mean Platelet Volume 11.6 fL (9.4-12.4); Monocytes # 1.2 K/mcL (0.0-1.3); Monocytes % 10.5 %; Neutrophils # 7.1 K/mcL (1.6-8.9); Platelet Count 247 K/mcL (140-400); Red Blood Count 3.32 M/mcL (4.19-5.50); Red Cell Distribution Width 14.5 % (11.5-14.5); Segmented Neutrophils % 63.8 %
[2019-08-03 04:32] LABS: Alanine Aminotransferase 28 Units/L (7-52); Albumin 2.9 g/dL (3.5-5.7); Albumin/Globulin Ratio 1.2 (1.1-2.2); Alkaline Phosphatase 62 Units/L (34-104); Aspartate Amino Transferase 45 Units/L (13-39); BUN/Creatinine Ratio 15 (6-26); Bilirubin,Total 0.6 mg/dL (0.3-1.0); Blood Urea Nitrogen 11 mg/dL (6-20); Calcium 8.3 mg/dL (8.6-10.3); Carbon Dioxide 26 mEq/L (23-29); Chloride 103 mEq/L (98-107); Globulin 2.5 g/dL (2.4-3.5); Glucose 117 mg/dL (70-105); Osmolality,Calculated 284 (280-300); Potassium 3.6 mEq/L (3.5-5.1); Sodium 137 mEq/L (136-145); Total Protein 5.4 g/dL (6.4-8.9); eGFR For African Americans > 60 (> 60); eGFR For Non-African Americans > 60 (> 60)
[2019-08-03] MEDS: Insulin LISPRO 300 UNITS/3 ML VIAL SQ SCH ×4 (09:08→20:18)
[2019-08-03] MEDS: *HR* Heparin 5,000 UNIT/ML VIAL SQ SCH ×2 (10:09→17:52)
--- NOTE | 2019-08-03 10:11 | Discharge Summary ---
Orders not resulted at time of discharge: Pending orders 07/29/19 14:10 Culture,Anaerobic [RM] Routine 07/29/19 14:18 Surgical Pathology [PTH] Routine 08/02/19 12:17 Culture,Wound [RM] Routine Viral Culture,Non-Respiratory [RM] Routine Date of Encounter: 08/03/19 - Discharge Diagnosis (1) Osteomyelitis of fifth toe of right foot Status: Acute (2) Sinus bradycardia Status: Resolved (3) Diabetic ulcer of foot associated with diabetes mellitus due to underlying condition, limited to breakdown of skin Status: Chronic Qualifiers: Diabetic foot ulcer location: toe Laterality: right Qualified Code(s): E08.621 - Diabetes mellitus due to underlying condition with foot ulcer; L97.511 - Non-pressure chronic ulcer of other part of right foot limited to breakdown of skin (4) Diabetes 1.5, managed as type 2 Status: Chronic (5) Essential (primary) hypertension Status: Chronic (6) CAD (coronary artery disease) Status: Chronic Qualifiers: Coronary Disease-Associated Artery/Lesion type: [place] artery [place] vs. transplanted heart: [place] heart Associated angina: without angina Qualified Code(s): I25.10 - Atherosclerotic heart disease of [place] coronary artery without angina pectoris (7) DVT prophylaxis Status: Acute (8) Skin pustule Status: Acute Hospital course: Mr. Santana is a 59 year old male - Time Spent with Patient Total time spent providing and/or coordinating discharge services: - Discharge Medications Prescriptions: No Action amLODIPine [Norvasc] 5 mg PO DAILY Aspirin [Lo-Dose Aspirin EC] 81 mg PO DAILY Atorvastatin Calcium [Lipitor] 80 mg PO HS Insulin Degludec [Tresiba Flextouch U-200] 30 units SQ HS Lisinopril [Zestril] 40 mg PO DAILY Metformin HCl [Glucophage] 1,000 mg PO BID Metoprolol Succinate [Toprol Xl] 25 mg PO DAILY Pregabalin [Lyrica] 300 mg PO BID Clopidogrel [Plavix] 75 mg PO DAILY Icosapent Ethyl [Vascepa] 2 gm PO BID Sulfamethoxazole/Trimeth DS [Bactrim DS] 1 each PO BID #20 tablet Home Medications: Clopidogrel [Plavix] 75 mg PO DAILY 07/12/17 [History] Icosapent Ethyl [Vascepa] 2 gm PO BID 07/12/17 [History] Pregabalin [Lyrica] 300 mg PO BID 07/12/17 [History] Sulfamethoxazole/Trimeth DS [Bactrim DS] 1 each PO BID #20 tablet 10/25/17 [Rx] Aspirin [Lo-Dose Aspirin EC] 81 mg PO DAILY 07/22/19 [History] Atorvastatin Calcium [Lipitor] 80 mg PO HS 07/22/19 [History] Insulin Degludec [Tresiba Flextouch U-200] 30 units SQ HS 07/22/19 [History] Lisinopril [Zestril] 40 mg PO DAILY 07/22/19 [History] Metformin HCl [Glucophage] 1,000 mg PO BID 07/22/19 [History] Metoprolol Succinate [Toprol Xl] 25 mg PO DAILY 07/22/19 [History] amLODIPine [Norvasc] 5 mg PO DAILY 07/22/19 [History] Allergies/Adverse Reactions: Allergy/AdvReac Type Severity Reaction Status Date / Time No Known Allergies Allergy Verified 07/22/19 17:52 Date of admission: 07/22/19 15:40 Primary care physician: Delphine Taylor CNP Consults: 07/22/19 02:15 Consult to Podiatry [CONS] Routine Consulting Provider: [facility] Reason for Consult: DFU Call Completed: No 07/22/19 13:20 Consult to Marketing Technologist [CONS] Routine Reason for SW Consult: Discharge planning 07/22/19 14:04 Consult to Vascular Surgery [CONS] Routine Consulting Provider: Vascular Surgery [facility] Reason for Consult: Abnormal KASEY, pending surgery, osteo of right 5th Call Completed: Yes 07/23/19 07:34 Consult to Cardiology [CONS] Routine Comment: Consulting Provider: Cardiology [facility] Reason for Consult: Sinus oumar with pauses Time Notified: 07:35 Call Completed: Yes 07/27/19 13:20 Consult to Infectious Diseases [CONS] Routine Consulting Provider: Infectious Disease [facility] Reason for Consult: osteomylitis Time Notified: 13:15 Call Completed: Yes 07/31/19 13:17 Consult to Physical Therapy [CONS] Routine Comment: Evaluate, develop and implement POC Reason for Consult: increased weakness Does patient have active BEDREST order?: No Is patient medically & hemodynamically stable?: Yes 07/31/19 13:19 Consult to Occupational Therapy [CONS] Routine Comment: Evaluate, develop and implement POC Reason for Consult: increased weakness Does patient have active BEDREST order?: No Is patient medically & hemodynamically stable?: Yes - Constitutional Vitals: Temp Pulse Resp BP Pulse Ox 98.3 F 63 18 164/79 93 08/03/19 08:13 08/03/19 08:13 08/03/19 08:13 08/03/19 08:13 08/03/19 08:13 General appearance: Present: cooperative, A&O X 3, pleasant, no acute distress, answers questions appropriately - Patient Status Condition: Fair - Discharge Instructions Follow Up With: Delphine Taylor CNP [Primary Care Provider] - 08/05/19 2:20 pm (Please follow up as schedule...) Marco Eden MD [Partnered Physician] - 08/16/19 9:45 am (This appointment is in [place] )
[2019-08-03] MEDS: Aspirin Enteric Coated 81 MG Tablet PO SCH (10:14)
[2019-08-03] MEDS: Nicotine 21 MG PATCH.TD24 TD SCH (10:14)
[2019-08-03] MEDS: Lisinopril 20 MG TABLET PO SCH (10:15)
[2019-08-03] MEDS: Pregabalin 75 MG CAPSULE PO SCH ×2 (10:15→20:09)
[2019-08-03] MEDS: amLODIPine 5 MG TABLET PO SCH (10:15)
--- NOTE | 2019-08-03 10:34 | Infectious Disease Progress No ---
ID Progress Note Date of Encounter: 08/03/19 Time of Encounter: 10:31 - Subjective Subjective: Patient seen and examined. He seems to be doing okay clinically. Denies any RUBIO, no chest pain, no shortness of breath, no diarrhea. no urinary symptoms. In fact he tells me that he is constipated. He has not had a bowel movement for 5 days. Patient also has significant edema left upper extremity. VS noted afebrile labs noted - Objective CBC & Chem 7: 08/03/19 03:41 08/03/19 03:41 - Exam Vitals: Temp Pulse Resp BP Pulse Ox 98.3 F 63 18 164/79 93 08/03/19 08:13 08/03/19 08:13 08/03/19 08:13 08/03/19 08:13 08/03/19 08:13 Exam: GENERAL: Comfortable. Sitting up in the chair HEENT: MARYURI, EOMI LUNGS: Good air sounds bilaterally, no wheezing or rhonchi CV: RRR, S1 S2 ABDOMEN: Soft, nontender, + bowel sounds but hypoactive EXT: Adequate perfusion. Significant edema left upper extremity NEURO: A&OX3; no focal deficit Skin: Has a small blister right thigh which does not appear infected not significant. Surgical wounds right thigh fully healed with no wound dehiscence or erythema. - Assessment and Plan (1) Osteomyelitis of fifth toe of right foot Current Visit: Yes Status: Acute CT of right lower extremity 07/22/2019: Interval fracture of the distal aspect of the 5th proximal phalanx with question of associated osteolysis. Pathologic fracture with underlying osteomyelitis cannot be excluded in the clinical setting of soft tissue infection of the 5th digit. ESR 20 cultures from the wound 07/09/19: MSSA and GBS Status post amputation right fifth toe 07/29/2019 Intra-Op cultures negative but Gram stain showing gram-positive cocci Patient continues to be on cefazolin/Flagyl When ready for discharge, Discharge on cefazolin 2 g IV every 8 hours Metronidazole 500 mg by mouth 3 times a day Weekly CBC, BUN, creatinine, ESR and CRP Follow-up with us in clinic in 2 weeks Duration of treatment probably through 09/09/2019 depending on the clinical picture SNOMED Code(s): 449588388, 460411909, 2551151739890528 (2) Peripheral vascular disease Current Visit: Yes Status: Acute KASEY index 0.54 Status post right femoralabove-knee popliteal bypass graft 07/26/2019 Status post right popliteal endarterectomy 07/26/2019 Doing okay postop SNOMED Code(s): 344342282 (3) Tobacco abuse Current Visit: No Status: Chronic Patient requested a nicotine patch. We will let the nursing staff know SNOMED Code(s): 588105993 (4) Diabetic ulcer of foot associated with diabetes mellitus due to underlying condition, limited to breakdown of skin Current Visit: Yes Status: Chronic Qualifiers: Diabetic foot ulcer location: toe Laterality: right Qualified Code(s): E08.621 - Diabetes mellitus due to underlying condition with foot ulcer; L97.511 - Non-pressure chronic ulcer of other part of right foot limited to breakdown of skin SNOMED Code(s): 133608122, 369479387 (5) CAD (coronary artery disease) Current Visit: Yes Status: Chronic Qualifiers: Coronary Disease-Associated Artery/Lesion type: [place] artery [place] vs. transplanted heart: [place] heart Associated angina: without angina Qualified Code(s): I25.10 - Atherosclerotic heart disease of [place] coronary artery without angina pectoris SNOMED Code(s): 44798794 (6) Bradycardia Current Visit: Yes Status: Acute SNOMED Code(s): 58441760 (7) Diabetes mellitus type 2 in obese Current Visit: Yes Status: Acute most Recent A1C 7.4 SNOMED Code(s): 47509756 (8) Extremity edema Current Visit: Yes Status: Acute LUE etiology not clear no signs of cellulitis concern for lymphedema or DVT? asked nursing to notify hospitalist SNOMED Code(s): 006951610 (9) Constipation Current Visit: Yes Status: Acute no bowel movement for 5 days Asked nursing to notify the hospitalist team Qualifiers: Constipation type: unspecified constipation type Qualified Code(s): K59.00 - Constipation, unspecified SNOMED Code(s): 99790823 Consult Discharge Plan - Plan Referrals: Delphine Taylor CNP [Primary Care Provider] - 08/05/19 2:20 pm (Please follow up as schedule...) Marco Eden MD [Partnered Physician] - 08/16/19 9:45 am (This appointment is in [place] )
--- NOTE | 2019-08-03 10:41 | Podiatry Progress Note ---
Date of Encounter: 08/03/19 Time of Encounter: 09:55 - Assessment and Plan (1) Osteomyelitis of fifth toe of right foot Current Visit: Yes Status: Acute Assessment: -S/P amputation right 5th toe on 07/29/[address] Cordon -No erythema noted, no active drainage noted -Wound culture final for Staph aureus -Path pending -Blood cultures negative for growth -Right posterior calcaneous ulceration noted with minimal edema noted -Hyperkeratosis noted to surrounding tissue -Appears stable -WBC 11.0, afebrile -ESR 20, CRP <5 -Wound cultures from 07/09 returned Group B Strep and MSSA -S/P right femoral-Above knee popliteal bypass graft with 6 mm PTFE Distaflo and right popliteal endarterectomy with Dr. Eden 07/26/19 Plan: -Discharge on cefazolin 2 g IV every 8 hours per ID recommendations -Leave dressing in place, do not change, will change in outpatient setting next week -Ok to d/c once cleared with bowling floor desk clerk and infectious disease -Follow up in outpatient clinic with Dr. Cordon in one week. Please make appointment prior to d/c -Cleansed right 5th metatarsal and right calcaneous with 0.9 NS -Covered incision with adaptic, 4x4 dry gauze -Covered right calcaneous with adaptic, 4x4 dry gauze -Secured with kerlix and medipore tape (2) Diabetic ulcer of left foot Current Visit: Yes Status: Acute Assessment: -Left lateral foot wound with superficial opening noted -WBC 11.0, afebrile -ESR 20, CRP <5 Plan: -Local wound care -Keep foot off bed, heel medix boots -Diabetic boot as ordered Qualifiers: Diabetic foot ulcer location: midfoot Diabetes mellitus type: type 2 Non- pressure ulcer stage: limited to breakdown of skin Qualified Code(s): E11.621 - Type 2 diabetes mellitus with foot ulcer; L97.421 - Non-pressure chronic ulcer of left heel and midfoot limited to breakdown of skin Subjective Principal diagnosis: OM Interval history: Post op day #5 amputation right 5th toe by Dr. Cordon on 07/29/2019 Patient is alert and oriented working with PT and transferring from bed to [facility]. He denies any chest pain, shortness of breath, or calf pain. Patient denies any fever, chills, n/v/d. He denies needs at this time Objective - Vital Signs Vital Signs: Vital Signs Temp Pulse Resp BP Pulse Ox 08/03/19 08:13 98.3 F 63 18 164/79 93 08/03/19 03:28 99.1 F 72 18 146/74 96 08/02/19 22:59 99 F 66 18 155/69 95 08/02/19 18:58 99.4 F 60 18 150/74 92 08/02/19 16:45 98.3 F 60 17 136/71 95 08/02/19 11:39 97.9 F 57 18 137/65 94 Intake and Output 08/02/19 08/03/19 08/03/19 23:59 07:59 15:59 Intake Total 580 / 1560 200 / 200 Output Total 600 / 2750 1500 / 2300 800 / 2300 Balance -20 / -1190 -1300 / -2100 -800 / -2100 Intake: IV Fluids 100 / 600 200 / 200 Flagyl Premix 500 MG/100 ML 500 100 / 300 100 / 100 mg In 100 ml @ 100 mls/hr IVPB Q8HR [facility] Rx#:[id number] Ancef 2,000 MG In 0.9 % Sodium 100 / 100 Chloride 100 ML @ 200 mls/hr IVPB Q8HR [facility] Rx#:[id number] Oral 480 / 960 0 / 0 Output: Urine 600 / 2750 1500 / 2300 800 / 2300 Other: Meal Dinner Percent of Meal Consumed 75% # Voids 1 Weight 112 kg Blood Glucose* 134 108 - Exam Exam: Constitutional: Alert and oriented x 3. Well nourished. No acute distress noted Vascular: weakly palpable pulse DP RLE, non-palpable pulses PT RLE and DP/PT LLE, CFT sluggish, skin warm, no calf pain with squeeze Neurological: Absent sensation to touch, normal plantar response Dermatological: right 5th metatarsal incision noted, sutures intact, edges coapting, no erythema noted, mild edema noted, no active drainage noted, Diaz grade II ulceration noted to right posterior calcaneous Musculoskeletal: 3/5 muscle strength and normal tone RLE, rigid LLE - Lab Result Diagrams: 08/03/19 03:41 08/03/19 03:41 Labs: Abnormal lab results WBC 11.6 K/mcL (4.3-11.1) H 07/30/19 04:35 RBC 3.32 M/mcL (4.19-5.50) L 08/03/19 03:41 Hgb 10.2 g/dL (12.9-16.9) L 08/03/19 03:41 Hct 30.7 % (37.5-50.1) L 08/03/19 03:41 RDW 14.6 % (11.5-14.5) H 07/29/19 03:41 Neutrophils # 20.3 K/mcL (1.6-8.9) H 07/27/19 04:00 Monocytes # 1.4 K/mcL (0.0-1.3) H 07/30/19 04:35 ESR 20 mm/hr (0-10) H 07/22/19 02:47 PT 12.4 Seconds (9.4-12.1) H 07/29/19 03:41 Sodium 135 mEq/L (136-145) L 07/22/19 02:47 Potassium 3.2 mEq/L (3.5-5.1) L 08/01/19 05:19 Chloride 109 mEq/L (98-107) H 07/24/19 04:12 Carbon Dioxide 20 mEq/L (23-29) L 07/27/19 04:00 Creatinine 0.62 mg/dL (0.70-1.30) L 08/01/19 05:19 Glucose 117 mg/dL (70-105) H 08/03/19 03:41 POC Glucose 108 mg/dL (70-99) H 08/03/19 07:59 Hemoglobin A1c 7.3 % (-5.6) H 07/22/19 02:47 Calculated Osmolality 279 (280-300) L 07/22/19 02:47 Calcium 8.3 mg/dL (8.6-10.3) L 08/03/19 03:41 AST 45 Units/L (13-39) H 08/03/19 03:41 ALT 53 Units/L (7-52) H 07/27/19 04:00 Serum Total Protein 5.4 g/dL (6.4-8.9) L 08/03/19 03:41 Albumin 2.9 g/dL (3.5-5.7) L 08/03/19 03:41 Globulin 2.3 g/dL (2.4-3.5) L 08/01/19 05:19 Vancomycin Trough 15 mcg/mL (5-10) H 07/26/19 14:58 Microbiology, Last 48 Hours 07/29/19 14:10 Anaerobic Culture - Preliminary Right Fifth Toe At this time, no anaerobic growth is present. The culture will be finalized after 5 days of incubation. 07/29/19 14:10 Wound Culture - Final Right Fifth Toe Staphylococcus aureus Consult Discharge Plan - Plan Referrals: Delphine Taylor CNP [Primary Care Provider] - 08/05/19 2:20 pm (Please follow up as schedule...) Marco Eden MD [Partnered Physician] - 08/16/19 9:45 am (This appointment is in [place] )
[2019-08-03] MEDS: metroNIDAZOLE 500 MG TABLET PO SCH ×2 (16:03→20:09)
--- NOTE | 2019-08-03 18:00 | Internal Med Progress Note ---
<Aileen Hein E - Last Filed: 08/03/19 17:41> Hospitalist Progress Note - Encounter Date of Encounter: 08/03/19 Time of Encounter: 08:45 - Subjective Interval History: Mr. Santana D9-year-old male initially admitted for osteomyelitis, status post femoropopliteal bypass on July 26 and status post fifth toe amputation on July 28 Patient was seen and examined at bedside today, patient is doing well, his pain in his upper thigh has decreased. He does not know any new blisters to the inside of his right thigh. He denies any chest pain, shortness of breath, nausea, vomiting, diarrhea, weakness or calf pain. Patient does state that he is constipated but feels that once he is able to get up to the bedside commode that he will be able to use the restroom. - Exam Vitals: Temp Pulse Resp BP Pulse Ox 98.6 F 68 16 150/77 95 08/03/19 17:07 08/03/19 17:07 08/03/19 17:07 08/03/19 17:07 08/03/19 17:07 Exam: General: AAO 3, in no acute distress, answers questions appropriately Head: normocephalic, atraumatic Eyes: DAVID, no icterus Cardio: RRR, no murmurs, rubs, or gallops Respiratory: CTAB, no wheezing, rhonchi, rales Abd: normal bowel sounds, no guarding or rigidity Extremities: no pedal edema, pulses equal bilaterally, warm, bilateral feet wrapped in clean dressing with no drainage noted Skin: warm, dry, intact: noted line of localized pustules that seem to be slightly dry on the surface today - Assessment and Plan (1) Osteomyelitis of fifth toe of right foot Current Visit: Yes Status: Acute Assessment and Plan: ID consulted - appreciate recommendations Right fifth toe amputation 07/28 Continue wound care as per podiatry Need outpatient IV antibiotics (2) Sinus bradycardia Current Visit: Yes Status: Resolved Assessment and Plan: Hold beta sridevi will be discontinued from patient's home medication list (3) Diabetic ulcer of foot associated with diabetes mellitus due to underlying condition, limited to breakdown of skin Current Visit: Yes Status: Chronic Assessment and Plan: Continue Ancef and Flagyl Wound grew Garcia-sensitive Staph Aureus ID has been consulted - appreciate recommendations Podiatry following Continue wound care as per podiatry Awaiting culture results Boots have been ordered for support as well as bed residency coordinator to make sure there are no pressure sites (4) Diabetes 1.5, managed as type 2 Current Visit: Yes Status: Chronic Assessment and Plan: Well controlled Continue Levemir 40 units at night as well as sliding scale insulin Continue to monitor blood glucose levels (5) Essential (primary) hypertension Current Visit: Yes Status: Chronic Assessment and Plan: Controlled at this time Continue amlodipine 10 mg Continue to monitor blood pressures (6) CAD (coronary artery disease) Current Visit: Yes Status: Chronic Assessment and Plan: Patient currently on aspirin, Plavix, statin Toprol discontinued due to bradycardia Stable (7) DVT prophylaxis Current Visit: Yes Status: Acute Assessment and Plan: Subcutaneous heparin (8) Skin pustule Current Visit: Yes Status: Acute Assessment and Plan: 2 day history of eruption skin pustule/bulle in approxamately 7cm line of 6 pustules varrying in size from 3mm to 10mm in size. These are localized to approximately 1-2 inches from graft site from fem/pop bypass Area is nontender. Edges appear to be drying at this time and no clear fluid is noted Would culture with viral and bacterial ordered as well as PCR for shingles Differentials include- localized reaction, infectious etiology ie bacterial or viral such as herpes zoster DVT Prophylaxis: Subcutaneous heparin - Time Spent with Patient Total time spent is greater than 50% in coordination of care (as documented) at patient's floor/unit and/or counseling patient: Internal Medicine: Result - Labs CBC & Chem 7: 08/03/19 03:41 08/03/19 03:41 Labs: Short CBC 08/03/19 Range/Units 03:41 WBC 11.0 (4.3-11.1) K/mcL Hgb 10.2 L (12.9-16.9) g/dL Hct 30.7 L (37.5-50.1) % Plt Count 247 (140-400) K/mcL Neutrophils # 7.1 (1.6-8.9) K/mcL BMP 08/03/19 03:41 Sodium 137 Potassium 3.6 Chloride 103 Carbon Dioxide 26 BUN 11 Creatinine 0.72 Glucose 117 H Calcium 8.3 L Liver Function 08/03/19 Range/Units 03:41 Total Bilirubin 0.6 (0.3-1.0) mg/dL AST 45 H (13-39) Units/L ALT 28 (7-52) Units/L Alkaline Phosphatase 62 (34-104) Units/L Albumin 2.9 L (3.5-5.7) g/dL - ABG Interpretation ABG results: PT/INR, D-dimer PT 12.4 Seconds (9.4-12.1) H 07/29/19 03:41 Consult Discharge Plan - Plan Referrals: Delphine Taylor CNP [Primary Care Provider] - 08/05/19 2:20 pm (Please follow up as schedule... Patient is going [facility]) Angel Cordon DPM [Partnered Physician] - 08/13/19 9:30 am (Please follow up as schedule...) Marco Eden MD [Partnered Physician] - 08/16/19 9:45 am (This appointment is in [place] ) <Araceli Lunsford - Last Filed: 08/03/19 22:45> Hospitalist Progress Note - Encounter Date of Encounter: 08/03/19 - Exam Vitals: Temp Pulse Resp BP Pulse Ox 98.6 F 68 16 150/77 95 08/03/19 17:07 08/03/19 17:07 08/03/19 17:07 08/03/19 17:07 08/03/19 17:07 - Assessment and Plan (1) Diabetes 1.5, managed as type 2 Current Visit: Yes Status: Chronic (2) Essential (primary) hypertension Current Visit: Yes Status: Chronic (3) Diabetic ulcer of foot associated with diabetes mellitus due to underlying condition, limited to breakdown of skin Current Visit: Yes Status: Chronic (4) Foot osteomyelitis, right Current Visit: Yes Status: Suspected (5) CAD (coronary artery disease) Current Visit: Yes Status: Chronic - Time Spent with Patient Total time spent is greater than 50% in coordination of care (as documented) at patient's floor/unit and/or counseling patient: Internal Medicine: Result - Labs CBC & Chem 7: 08/03/19 03:41 08/03/19 03:41 Labs: Short CBC 08/03/19 Range/Units 03:41 WBC 11.0 (4.3-11.1) K/mcL Hgb 10.2 L (12.9-16.9) g/dL Hct 30.7 L (37.5-50.1) % Plt Count 247 (140-400) K/mcL Neutrophils # 7.1 (1.6-8.9) K/mcL BMP 08/03/19 03:41 Sodium 137 Potassium 3.6 Chloride 103 Carbon Dioxide 26 BUN 11 Creatinine 0.72 Glucose 117 H Calcium 8.3 L Liver Function 08/03/19 Range/Units 03:41 Total Bilirubin 0.6 (0.3-1.0) mg/dL AST 45 H (13-39) Units/L ALT 28 (7-52) Units/L Alkaline Phosphatase 62 (34-104) Units/L Albumin 2.9 L (3.5-5.7) g/dL - ABG Interpretation ABG results: PT/INR, D-dimer PT 12.4 Seconds (9.4-12.1) H 07/29/19 03:41 - Attending Attestation I saw evaluated and examined this patient and reviewed objective data including labs and my medical decision-making was reviewed with the Resident Physician. I agree with the documented findings, disposition and treatment plan as described except to any changes set forth below. We independently had [id number] contact with the patient. No acute events. Awaiting placement. <Aileen Hein - Last Filed: 08/03/19 17:41> (3) Diabetic ulcer of foot associated with diabetes mellitus due to underlying c ondition, limited to breakdown of skin Qualifiers: Diabetic foot ulcer location: toe Laterality: right Qualified Code(s): E08.621 - Diabetes mellitus due to underlying condition with foot ulcer; L97.511 - Non-pressure chronic ulcer of other part of right foot limited to breakdown of skin (6) CAD (coronary artery disease) Qualifiers: Coronary Disease-Associated Artery/Lesion type: [place] artery [place] vs. transplanted heart: [place] heart Associated angina: without angina Qualified Code(s): I25.10 - Atherosclerotic heart disease of [place] coronary artery without angina pectoris <Araceli Lunsford - Last Filed: 08/03/19 22:45> (3) Diabetic ulcer of foot associated with diabetes mellitus due to underlying condition, limited to breakdown of skin Qualifiers: Diabetic foot ulcer location: toe Laterality: right Qualified Code(s): E08.621 - Diabetes mellitus due to underlying condition with foot ulcer; L97.511 - Non-pressure chronic ulcer of other part of right foot limited to breakdown of skin (4) Foot osteomyelitis, right Qualifiers: Osteomyelitis type: unspecified type Qualified Code(s): M86.9 - Osteomyelitis, unspecified (5) CAD (coronary artery disease) Qualifiers: Coronary Disease-Associated Artery/Lesion type: [place] artery [place] vs. transplanted heart: [place] heart Associated angina: without angina Qualified Code(s): I25.10 - Atherosclerotic heart disease of [place] coronary artery without angina pectoris
[2019-08-03] MEDS: Sennosides/Docusate Sodium TABLET PO SCH (20:08)
[2019-08-03] MEDS: Insulin DETEMIR 100 UNIT/ML X5UNITS SQ SCH (20:18)
[2019-08-04 05:04] LABS: Basophils # 0.1 K/mcL (0.0-0.2); Basophils % 0.8 %; Eosinophils # 0.4 K/mcL (0.0-0.6); Eosinophils % 3.1 %; Hematocrit 32.5 % (37.5-50.1); Hemoglobin 10.8 g/dL (12.9-16.9); Immature Granulocytes % 1.3 % (0-4); Lymphocytes # 1.8 K/mcL (0.6-4.6); Lymphocytes % 14.1 %; Mean Corpuscular HGB Conc 33.2 g/dL (31.6-35.5); Mean Corpuscular Hemoglobin 30.3 pg (28.0-33.3); Mean Corpuscular Volume 91.3 fL (83.0-100.0); Mean Platelet Volume 11.5 fL (9.4-12.4); Monocytes # 1.4 K/mcL (0.0-1.3); Monocytes % 10.6 %; Neutrophils # 9.2 K/mcL (1.6-8.9); Platelet Count 266 K/mcL (140-400); Red Blood Count 3.56 M/mcL (4.19-5.50); Red Cell Distribution Width 14.6 % (11.5-14.5); Segmented Neutrophils % 70.1 %; White Blood Count 13.1 K/mcL (4.3-11.1)
[2019-08-04] MEDS: *HR* Heparin 5,000 UNIT/ML VIAL SQ SCH (05:06)
[2019-08-04 05:45] LABS: Alanine Aminotransferase 33 Units/L (7-52); Albumin 2.9 g/dL (3.5-5.7); Albumin/Globulin Ratio 1.1 (1.1-2.2); Alkaline Phosphatase 75 Units/L (34-104); Aspartate Amino Transferase 46 Units/L (13-39); BUN/Creatinine Ratio 19 (6-26); Bilirubin,Total 0.7 mg/dL (0.3-1.0); Blood Urea Nitrogen 14 mg/dL (6-20); Calcium 8.4 mg/dL (8.6-10.3); Carbon Dioxide 26 mEq/L (23-29); Chloride 103 mEq/L (98-107); Globulin 2.6 g/dL (2.4-3.5); Glucose 113 mg/dL (70-105); Osmolality,Calculated 283 (280-300); Potassium 3.8 mEq/L (3.5-5.1); Sodium 136 mEq/L (136-145); Total Protein 5.5 g/dL (6.4-8.9); eGFR For African Americans > 60 (> 60); eGFR For Non-African Americans > 60 (> 60)
[2019-08-04] MEDS: Insulin LISPRO 300 UNITS/3 ML VIAL SQ SCH ×2 (08:19→12:50)
[2019-08-04] MEDS: metroNIDAZOLE 500 MG TABLET PO SCH (08:20)
[2019-08-04] MEDS: Sennosides/Docusate Sodium TABLET PO SCH (08:20)
[2019-08-04] MEDS: Aspirin Enteric Coated 81 MG Tablet PO SCH (08:20)
[2019-08-04] MEDS: Lisinopril 20 MG TABLET PO SCH (08:20)
[2019-08-04] MEDS: Nicotine 21 MG PATCH.TD24 TD SCH (08:20)
[2019-08-04] MEDS: Pregabalin 75 MG CAPSULE PO SCH (08:20)
[2019-08-04] MEDS: amLODIPine 5 MG TABLET PO SCH (08:20)
--- NOTE | 2019-08-04 09:10 | Internal Med Progress Note ---
<Amadeo Connor - Last Filed: 08/04/19 09:10> Hospitalist Progress Note - Encounter Date of Encounter: 08/04/19 - Exam Vitals: Temp Pulse Resp BP Pulse Ox 98.1 F 61 16 147/73 94 08/04/19 07:42 08/04/19 07:42 08/04/19 07:42 08/04/19 07:42 08/04/19 07:42 - Assessment and Plan (1) Diabetes 1.5, managed as type 2 Current Visit: Yes Status: Chronic (2) Essential (primary) hypertension Current Visit: Yes Status: Chronic (3) Diabetic ulcer of foot associated with diabetes mellitus due to underlying condition, limited to breakdown of skin Current Visit: Yes Status: Chronic (4) Foot osteomyelitis, right Current Visit: Yes Status: Suspected (5) CAD (coronary artery disease) Current Visit: Yes Status: Chronic - Time Spent with Patient Total time spent is greater than 50% in coordination of care (as documented) at patient's floor/unit and/or counseling patient: Internal Medicine: Result - Labs CBC & Chem 7: 08/04/19 04:23 08/04/19 04:23 Labs: Short CBC 08/04/19 Range/Units 04:23 WBC 13.1 H (4.3-11.1) K/mcL Hgb 10.8 L (12.9-16.9) g/dL Hct 32.5 L (37.5-50.1) % Plt Count 266 (140-400) K/mcL Neutrophils # 9.2 H (1.6-8.9) K/mcL BMP 08/04/19 04:23 Sodium 136 Potassium 3.8 Chloride 103 Carbon Dioxide 26 BUN 14 Creatinine 0.72 Glucose 113 H Calcium 8.4 L Liver Function 08/04/19 Range/Units 04:23 Total Bilirubin 0.7 (0.3-1.0) mg/dL AST 46 H (13-39) Units/L ALT 33 (7-52) Units/L Alkaline Phosphatase 75 (34-104) Units/L Albumin 2.9 L (3.5-5.7) g/dL - ABG Interpretation ABG results: PT/INR, D-dimer PT 12.4 Seconds (9.4-12.1) H 07/29/19 03:41 Consult Discharge Plan - Plan Referrals: Delphine Taylor CNP [Primary Care Provider] - 08/05/19 2:20 pm (Please follow up as schedule... Patient is going to [facility] [place]) Angel Cordon DPM [Partnered Physician] - 08/13/19 9:30 am (Please follow up as schedule...) Marco Eden MD [Partnered Physician] - 08/16/19 9:45 am (This appointment is in [place] ) <Andrew Haji - Last Filed: 08/04/19 14:11> Hospitalist Progress Note - Encounter Date of Encounter: 08/04/19 Time of Encounter: 10:25 - Exam Vitals: Temp Pulse Resp BP Pulse Ox 98.6 F 62 16 147/90 94 08/04/19 11:55 08/04/19 11:55 08/04/19 11:55 08/04/19 11:55 08/04/19 11:55 - Assessment and Plan (1) Diabetes 1.5, managed as type 2 Current Visit: Yes Status: Chronic (2) Essential (primary) hypertension Current Visit: Yes Status: Chronic (3) Diabetic ulcer of foot associated with diabetes mellitus due to underlying condition, limited to breakdown of skin Current Visit: Yes Status: Chronic (4) Foot osteomyelitis, right Current Visit: Yes Status: Suspected (5) CAD (coronary artery disease) Current Visit: Yes Status: Chronic - Time Spent with Patient Total time spent is greater than 50% in coordination of care (as documented) at patient's floor/unit and/or counseling patient: Internal Medicine: Result - Labs CBC & Chem 7: 08/04/19 04:23 08/04/19 04:23 Labs: Short CBC 08/04/19 Range/Units 04:23 WBC 13.1 H (4.3-11.1) K/mcL Hgb 10.8 L (12.9-16.9) g/dL Hct 32.5 L (37.5-50.1) % Plt Count 266 (140-400) K/mcL Neutrophils # 9.2 H (1.6-8.9) K/mcL BMP 08/04/19 04:23 Sodium 136 Potassium 3.8 Chloride 103 Carbon Dioxide 26 BUN 14 Creatinine 0.72 Glucose 113 H Calcium 8.4 L Liver Function 08/04/19 Range/Units 04:23 Total Bilirubin 0.7 (0.3-1.0) mg/dL AST 46 H (13-39) Units/L ALT 33 (7-52) Units/L Alkaline Phosphatase 75 (34-104) Units/L Albumin 2.9 L (3.5-5.7) g/dL - ABG Interpretation ABG results: PT/INR, D-dimer PT 12.4 Seconds (9.4-12.1) H 07/29/19 03:41 - Attending Attestation I saw evaluated and examined this patient and reviewed objective data including labs and my medical decision-making was reviewed with the Resident Physician, April Brown. I agree with the documented findings, disposition and treatment plan as described except to any changes set forth below. We independently had [id number] contact with the patient. Patient doing well today. Denies any new complaints. Tolerating diet well. No nausea or vomiting. Patient will be discharged to skilled rehabilitation today. Continue cefazolin 2 g every 8 ours and oral Flagyl 500 3 times a day. Recommend treatment till 09/09/19. Arrange for outpatient follow-up with infectious disease. Also obtain CBC, BNP, creatinine, ESR and CRP weekly. Patient has mild leukocytosis. However he does not have any signs of fever or chills or other signs of sepsis. Most likely reactive. <Amadeo Connor - Last Filed: 08/04/19 09:10> (3) Diabetic ulcer of foot associated with diabetes mellitus due to underlying condition, limited to breakdown of skin Qualifiers: Diabetic foot ulcer location: toe Laterality: right Qualified Code(s): E08.621 - Diabetes mellitus due to underlying condition with foot ulcer; L97.511 - Non-pressure chronic ulcer of other part of right foot limited to breakdown of skin (4) Foot osteomyelitis, right Qualifiers: Osteomyelitis type: unspecified type Qualified Code(s): M86.9 - Osteomyelitis, unspecified (5) CAD (coronary artery disease) Qualifiers: Coronary Disease-Associated Artery/Lesion type: [place] artery [place] vs. transplanted heart: [place] heart Associated angina: without angina Qualified Code(s): I25.10 - Atherosclerotic heart disease of [place] coronary artery without angina pectoris <Andrew Haji - Last Filed: 08/04/19 14:11> (3) Diabetic ulcer of foot associated with diabetes mellitus due to underlying condition, limited to breakdown of skin Qualifiers: Diabetic foot ulcer location: toe Laterality: right Qualified Code(s): E0 8.621 - Diabetes mellitus due to underlying condition with foot ulcer; L97.511 - Non-pressure chronic ulcer of other part of right foot limited to breakdown of skin (4) Foot osteomyelitis, right Qualifiers: Osteomyelitis type: unspecified type Qualified Code(s): M86.9 - Osteomyelitis, unspecified (5) CAD (coronary artery disease) Qualifiers: Coronary Disease-Associated Artery/Lesion type: [place] artery [place] vs. transplanted heart: [place] heart Associated angina: without angina Qualified Code(s): I25.10 - Atherosclerotic heart disease of [place] coronary artery without angina pectoris
--- NOTE | 2019-08-04 14:17 | Infectious Disease Progress No ---
ID Progress Note Date of Encounter: 08/04/19 Time of Encounter: 14:16 - Subjective Subjective: Patient seen and examined. He seems to be doing okay clinically. Denies any RUBIO, no chest pain, no shortness of breath, no diarrhea. no urinary symptoms. In fact he tells me that he is constipated. He has not had a bowel movement for 5 days. Patient also has significant edema left upper extremity. VS noted afebrile labs noted - Objective CBC & Chem 7: 08/04/19 04:23 08/04/19 04:23 - Exam Vitals: Temp Pulse Resp BP Pulse Ox 98.6 F 62 16 147/90 94 08/04/19 11:55 08/04/19 11:55 08/04/19 11:55 08/04/19 11:55 08/04/19 11:55 Exam: GENERAL: Comfortable. Sitting up in the chair HEENT: MARYURI, EOMI LUNGS: Good air sounds bilaterally, no wheezing or rhonchi CV: RRR, S1 S2 ABDOMEN: Soft, nontender, + bowel sounds but hypoactive EXT: Adequate perfusion. Significant edema left upper extremity NEURO: A&OX3; no focal deficit Skin: Has a small blister right thigh which does not appear infected not significant. Surgical wounds right thigh fully healed with no wound dehiscence or erythema. - Assessment and Plan (1) Osteomyelitis of fifth toe of right foot Current Visit: Yes Status: Acute CT of right lower extremity 07/22/2019: Interval fracture of the distal aspect of the 5th proximal phalanx with question of associated osteolysis. Pathologic fracture with underlying osteomyelitis cannot be excluded in the clinical setting of soft tissue infection of the 5th digit. ESR 20 cultures from the wound 07/09/19: MSSA and GBS Status post amputation right fifth toe 07/29/2019 Intra-Op cultures negative but Gram stain showing gram-positive cocci Patient continues to be on cefazolin/Flagyl When ready for discharge, Discharge on cefazolin 2 g IV every 8 hours Metronidazole 500 mg by mouth 3 times a day Weekly CBC, BUN, creatinine, ESR and CRP Follow-up with us in clinic in 2 weeks Duration of treatment probably through 09/09/2019 depending on the clinical picture SNOMED Code(s): 367841454, 653546593, 5300688519807763 (2) Peripheral vascular disease Current Visit: Yes Status: Acute KASEY index 0.54 Status post right femoralabove-knee popliteal bypass graft 07/26/2019 Status post right popliteal endarterectomy 07/26/2019 Doing okay postop SNOMED Code(s): 842268483 (3) Tobacco abuse Current Visit: No Status: Chronic Patient requested a nicotine patch. We will let the nursing staff know SNOMED Code(s): 026495720 (4) Diabetic ulcer of foot associated with diabetes mellitus due to underlying condition, limited to breakdown of skin Current Visit: Yes Status: Chronic Qualifiers: Diabetic foot ulcer location: toe Laterality: right Qualified Code(s): E08.621 - Diabetes mellitus due to underlying condition with foot ulcer; L97.511 - Non-pressure chronic ulcer of other part of right foot limited to breakdown of skin SNOMED Code(s): 618521191, 885971684 (5) CAD (coronary artery disease) Current Visit: Yes Status: Chronic Qualifiers: Coronary Disease-Associated Artery/Lesion type: [place] artery [place] vs. transplanted heart: [place] heart Associated angina: without angina Qualified Code(s): I25.10 - Atherosclerotic heart disease of [place] coronary artery without angina pectoris SNOMED Code(s): 08311201 (6) Bradycardia Current Visit: Yes Status: Acute SNOMED Code(s): 16784670 (7) Diabetes mellitus type 2 in obese Current Visit: Yes Status: Acute most Recent A1C 7.4 SNOMED Code(s): 49253522 (8) Extremity edema Current Visit: Yes Status: Acute LUE etiology not clear no signs of cellulitis concern for lymphedema or DVT? asked nursing to notify hospitalist SNOMED Code(s): 233233132 (9) Constipation Current Visit: Yes Status: Acute no bowel movement for 5 days Asked nursing to notify the hospitalist team Qualifiers: Constipation type: unspecified constipation type Qualified Code(s): K59.00 - Constipation, unspecified SNOMED Code(s): 94561092 Consult Discharge Plan - Plan Referrals: Delphine Taylor CNP [Primary Care Provider] - 08/05/19 2:20 pm (Please follow up as schedule... Patient is going to [facility]) Angel Cordon DPM [Partnered Physician] - 08/13/19 9:30 am (Please follow up as schedule...) Marco Eden MD [Partnered Physician] - 08/16/19 9:45 am (This appointment is in [place] )
--- NOTE | 2019-08-04 14:53 | Discharge Summary ---
<Andrew Haji - Last Filed: 08/04/19 15:19> Orders not resulted at time of discharge: Pending orders 08/02/19 12:17 Culture,Wound,with Gram Stain [RM] Routine Viral Culture,Non-Respiratory [RM] Routine Date of Encounter: 08/04/19 Time of Encounter: 15:19 - Discharge Diagnosis (1) Diabetes 1.5, managed as type 2 Status: Chronic (2) Essential (primary) hypertension Status: Chronic (3) Diabetic ulcer of foot associated with diabetes mellitus due to underlying condition, limited to breakdown of skin Status: Chronic Qualifiers: Diabetic foot ulcer location: toe Laterality: right Qualified Code(s): E08.621 - Diabetes mellitus due to underlying condition with foot ulcer; L97.511 - Non-pressure chronic ulcer of other part of right foot limited to breakdown of skin (4) Foot osteomyelitis, right Status: Suspected Qualifiers: Osteomyelitis type: unspecified type Qualified Code(s): M86.9 - Osteomyelitis, unspecified (5) CAD (coronary artery disease) Status: Chronic Qualifiers: Coronary Disease-Associated Artery/Lesion type: [place] artery [place] vs. transplanted heart: [place] heart Associated angina: without angina Qualified Code(s): I25.10 - Atherosclerotic heart disease of [place] coronary artery without angina pectoris Hospital course: Mr. Santana is a 59 year old male - Time Spent with Patient Total time spent providing and/or coordinating discharge services: - Discharge Medications Prescriptions: New ceFAZolin [Ancef] 2,000 mg IV Q8HR 36 Days #216 vial metroNIDAZOLE [Flagyl] 500 mg PO TID 36 Days #108 tablet Sennosides/Docusate Sodium [Senna Plus] 1 each PO BID PRN tablet PRN Reason: Constipation Pregabalin 300 mg PO TID 30 Days #90 capsule Continued Aspirin [Lo-Dose Aspirin EC] 81 mg PO DAILY Atorvastatin Calcium [Lipitor] 80 mg PO HS Lisinopril [Zestril] 40 mg PO DAILY Metformin HCl [Glucophage] 1,000 mg PO BID Insulin Degludec [Tresiba Flextouch U-200] 30 units SQ HS 30 Days #1 pack Pregabalin [Lyrica] 300 mg PO BID Clopidogrel [Plavix] 75 mg PO DAILY Icosapent Ethyl [Vascepa] 2 gm PO BID Changed amLODIPine [Norvasc] 10 mg PO DAILY 30 Days #30 tablet Discontinued Metoprolol Succinate [Toprol Xl] 25 mg PO DAILY Sulfamethoxazole/Trimeth DS [Bactrim DS] 1 each PO BID #20 tablet Home Medications: Clopidogrel [Plavix] 75 mg PO DAILY 07/12/17 [History] Icosapent Ethyl [Vascepa] 2 gm PO BID 07/12/17 [History] Pregabalin [Lyrica] 300 mg PO BID 07/12/17 [History] Aspirin [Lo-Dose Aspirin EC] 81 mg PO DAILY 07/22/19 [History] Atorvastatin Calcium [Lipitor] 80 mg PO HS 07/22/19 [History] Lisinopril [Zestril] 40 mg PO DAILY 07/22/19 [History] Metformin HCl [Glucophage] 1,000 mg PO BID 07/22/19 [History] Insulin Degludec [Tresiba Flextouch U-200] 30 units SQ HS 30 Days #1 pack 08/04/19 [Rx] Pregabalin 300 mg PO TID 30 Days #90 capsule 08/04/19 [Rx] Sennosides/Docusate Sodium [Senna Plus] 1 each PO BID PRN tablet 08/04/19 [Rx] amLODIPine [Norvasc] 10 mg PO DAILY 30 Days #30 tablet 08/04/19 [Rx] ceFAZolin [Ancef] 2,000 mg IV Q8HR 36 Days #216 vial 08/04/19 [Rx] metroNIDAZOLE [Flagyl] 500 mg PO TID 36 Days #108 tablet 08/04/19 [Rx] Allergies/Adverse Reactions: Allergy/AdvReac Type Severity Reaction Status Date / Time No Known Allergies Allergy Verified 07/22/19 17:52 Date of admission: 07/22/19 15:40 Primary care physician: Delphine Taylor CNP Consults: 07/22/19 02:15 Consult to Podiatry [CONS] Routine Consulting Provider: [facility] Reason for Consult: DFU Call Completed: No 07/22/19 13:20 Consult to Student Services Vice President [CONS] Routine Reason for SW Consult: Discharge planning 07/22/19 14:04 Consult to Vascular Surgery [CONS] Routine Consulting Provider: Vascular Surgery [facility] Reason for Consult: Abnormal KASEY, pending surgery, osteo of right 5th Call Completed: Yes 07/23/19 07:34 Consult to Cardiology [CONS] Routine Comment: Consulting Provider: Cardiology [facility] Reason for Consult: Sinus oumar with pauses Time Notified: 07:35 Call Completed: Yes 07/27/19 13:20 Consult to Infectious Diseases [CONS] Routine Consulting Provider: Infectious Disease [facility] Reason for Consult: osteomylitis Time Notified: 13:15 Call Completed: Yes 07/31/19 13:17 Consult to Physical Therapy [CONS] Routine Comment: Evaluate, develop and implement POC Reason for Consult: increased weakness Does patient have active BEDREST order?: No Is patient medically & hemodynamically stable?: Yes 07/31/19 13:19 Consult to Occupational Therapy [CONS] Routine Comment: Evaluate, develop and implement POC Reason for Consult: increased weakness Does patient have active BEDREST order?: No Is patient medically & hemodynamically stable?: Yes 08/04/19 08:37 Consult to Invasive Line Access Team [CONS] Routine Reason for Consult: HOME ATB Line Type: Midline - Constitutional Vitals: Temp Pulse Resp BP Pulse Ox 98.6 F 62 16 147/90 94 08/04/19 11:55 08/04/19 11:55 08/04/19 11:55 08/04/19 11:55 08/04/19 11:55 - Patient Status Disposition: Transfer SNF Condition: Fair - Discharge Instructions Follow Up With: Delphine Taylor CNP [Primary Care Provider] - 08/05/19 2:20 pm (Please follow up as schedule... Patient is going to [facility]) Angel Cordon DPM [Partnered Physician] - 08/13/19 9:30 am (Please follow up as schedule...) Marco Eden MD [Partnered Physician] - 08/16/19 9:45 am (This appointment is in [place] ) - Attending Attestation I saw evaluated and examined this patient and reviewed objective data including labs and my medical decision-making was reviewed with the Resident Physician, Amadeo Connor. I agree with the documented findings, disposition and discharge plan as described except to any changes set forth below. We independently had [id number] contact with the patient. Patient with history of diabetes, prior CVA, hypertension and CAD hospitalized here with possible right foot osteomyelitis and pathologic right fifth toe fracture. He was treated with IV antibiotics and evaluated by podiatry and vascular surgery. He initially underwent angiogram and then underwent right femoropopliteal bypass after which he was treated with amputation of right fifth toe. Wound cultures have been positive for staph aureus. His been evaluated by infectious disease and recommended about 6 weeks of IV antibiotic therapy with cefazolin. He will also be taking Flagyl along with that to treat any underlying anaerobic infection. Patient will be discharged to skilled rehabilitation today. Time spent on discharge: 8 min <Amadeo Connor - Last Filed: 08/04/19 22:43> - NOTES TO OUTPATIENT PROVIDER Notes to Outpatient Provider: Mr Santana was admitted on 07/22 for a foot ulcer. He underwent a right femoral-above knee popliteal bypass graft and right popliteal endarterectomy with Dr Eden on 07/26. He subsequently had a right 5th toe amputation on 07/[address] Cordon. At time of discharge he was being treated for osteomyelitis with Cefazolin and Metronizale with plans to treat through 09/09/19. Orders not resulted at time of discharge: Pending orders 08/02/19 12:17 Culture,Wound,with Gram Stain [RM] Routine Viral Culture,Non-Respiratory [RM] Routine Date of Encounter: 08/04/19 Time of Encounter: 08:45 - Discharge Diagnosis (1) Diabetes 1.5, managed as type 2 Priority: Secondary Status: Chronic (2) Essential (primary) hypertension Priority: Secondary Status: Chronic (3) Diabetic ulcer of foot associated with diabetes mellitus due to underlying condition, limited to breakdown of skin Priority: Primary Status: Chronic Qualifiers: Diabetic foot ulcer location: toe Laterality: right Qualified Code(s): E08.621 - Diabetes mellitus due to underlying condition with foot ulcer; L97.511 - Non-pressure chronic ulcer of other part of right foot limited to breakdown of skin (4) Foot osteomyelitis, right Priority: Primary Status: Suspected Qualifiers: Osteomyelitis type: unspecified type Qualified Code(s): M86.9 - Osteomyelitis, unspecified (5) CAD (coronary artery disease) Priority: Secondary Status: Chronic Qualifiers: Coronary Disease-Associated Artery/Lesion type: [place] artery [place] vs. transplanted heart: [place] heart Associated angina: without angina Qualified Code(s): I25.10 - Atherosclerotic heart disease of [place] coronary artery without angina pectoris Hospital course: Mr. Santana is a 59 year old male who was admitted on 07/22 for a foot ulcer. A CT of the foot on admission showed the followin. Interval fracture of the distal aspect of the 5th proximal phalanx with question of associated osteolysis. Pathologic fracture with underlying osteomyelitis cannot be excluded in the clinical setting of soft tissue infection of the 5th digit. 2. Subcutaneous edema predominant involving the dorsal soft tissues and extending to involve the 5th digit. No organized fluid collection identified. No subcutaneous gas. 3. Redemonstration of fracture at the middle phalanx of the 3rd toe dating back 2 comparison exam from April 30, 2019. No osseous bridging identified. 4. Mild osteoarthritis. Podiatry and vascular surgery were both consulted. However before any interventions were performed, the patient was noted to have bradycardia with HR between 55-60. Cardiology was consulted and recommended holding home Toprol XL. The patient's BP subsequently juanjose, which was controlled by increasing the dose of Amlodipine to 10mg daily. KASEY on the right was 0.54. Dr Eden performed a right femoral-above knee popliteal bypass graft and right popliteal endarterectomy on 07/26. The patient then had a right 5th toe amputation on 07/[address] Cordon. The patient was initially treated with IV Vancomycina and Zosyn for the osteomyelitis, but this was transitioned to Ancef and Zosyn on 07/26. Subsequently the antibiotics were tailored further to IV Ancef and Flagyl at the recommendations of the infectious disease team on 07/27. Once the right 5th toe wound culture from 07/29 resulted with pansensitive Staph aureus. The remainder of the post-op course was generally unremarkable. At time of discharge, the patient was to continue IV abx for osteomyelitis with Cefazolin and Metronizale with plans to treat through 09/09/19. Orders were placed for weekly CBC, BMP, ESR, and CRP. The patient was also instructed to stop using home Metoprolol due to bradycardia, and was given a prescription for the increased 10mg Amlodipine. He was also given a prescription for an increase in his home Tresciba to 30u qhs. He was discharged to [facility] without difficulty. Discharge discussed with: patient, nurse, social work, treasury management sales consultant - Time Spent with Patient Total time spent providing and/or coordinating discharge services: Date of admission: 07/22/19 15:40 Primary care physician: Delphine Taylor CNP Consults: 07/22/19 02:15 Consult to Podiatry [CONS] Routine Consulting Provider: [facility] Reason for Consult: DFU Call Completed: No 07/22/19 13:20 Consult to Student Services Vice President [CONS] Routine Reason for SW Consult: Discharge planning 07/22/19 14:04 Consult to Vascular Surgery [CONS] Routine Consulting Provider: [facility] Reason for Consult: Abnormal KASEY, pending surgery, osteo of right 5th Call Completed: Yes 07/23/19 07:34 Consult to Cardiology [CONS] Routine Comment: Consulting Provider: Cardiology [facility] Reason for Consult: Sinus oumar with pauses Time Notified: 07:35 Call Completed: Yes 07/27/19 13:20 Consult to Infectious Diseases [CONS] Routine Consulting Provider: Infectious Disease [facility] Reason for Consult: osteomylitis Time Notified: 13:15 Call Completed: Yes 07/31/19 13:17 Consult to Physical Therapy [CONS] Routine Comment: Evaluate, develop and implement POC Reason for Consult: increased weakness Does patient have active BEDREST order?: No Is patient medically & hemodynamically stable?: Yes 07/31/19 13:19 Consult to Occupational Therapy [CONS] Routine Comment: Evaluate, develop and implement POC Reason for Consult: increased weakness Does patient have active BEDREST order?: No Is patient medically & hemodynamically stable?: Yes 08/04/19 08:37 Consult to Invasive Line Access Team [CONS] Routine Reason for Consult: HOME ATB Line Type: Midline - Constitutional Vitals: Temp Pulse Resp BP Pulse Ox 98.6 F 62 16 147/90 94 08/04/19 11:55 08/04/19 11:55 08/04/19 11:55 08/04/19 11:55 08/04/19 11:55 General appearance: Present: cooperative, A&O X 3, pleasant, no acute distress, answers questions appropriately Exam: Constitutional: Well-developed male in no acute distress Head: Normocephalic, atraumatic Eyes: PERRL, EOMI, conjunctiva pink, sclera anicteric Neck: Supple, trachea midline, no lymphadenopathy Lungs: Clear to auscultation bilaterally. Nonlabored breathing. No wheezes, rales, or rhonchi noted. Cardiac: RRR. +s1 +s2 No murmurs, clicks, or rubs noted. GI: Abdomen soft, nontender, nondistended. Extremities: Warm, radial pulses palpable and symmetrical. No cyanosis, pedal edema, or calf tenderness. Clean dressings in place over right foot with foam boot. Neuro: Alert and oriented 3. No focal deficits. Normal speech. Skin: Warm, dry, and intact. Dressing in place over right foot as above - Patient Status Functional capacity at discharge: uses cane/walker Overall status at discharge: patient is progressing back to baseline - Diet and Activity Activity: as per physical therapy, increase activity as tolerated, resume usual activities as tolerated Diet: diabetic diet
--- NOTE | 2019-08-04 15:18 | Physician Discharge Referral ---
ExtendedCare Referral Info Transfer To: [facility] Provider in Charge after Transfer: PCP - Diagnosis (1) Diabetes 1.5, managed as type 2 Priority: Secondary Status: Chronic (2) Essential (primary) hypertension Priority: Secondary Status: Chronic (3) Diabetic ulcer of foot associated with diabetes mellitus due to underlying condition, limited to breakdown of skin Priority: Primary Status: Chronic (4) Foot osteomyelitis, right Priority: Primary Status: Suspected (5) CAD (coronary artery disease) Priority: Secondary Status: Chronic Prognosis: Good Aware of Diagnosis: Patient Aware of Prognosis: Patient - Transfer Medications Prescriptions: ceFAZolin [Ancef] 2,000 mg IV Q8HR 36 Days #216 vial metroNIDAZOLE [Flagyl] 500 mg PO TID 36 Days #108 tablet amLODIPine [Norvasc] 10 mg PO DAILY 30 Days #30 tablet Insulin Degludec [Tresiba Flextouch U-200] 30 units SQ HS 30 Days #1 pack Home Medications: Clopidogrel [Plavix] 75 mg PO DAILY 07/12/17 [History] Icosapent Ethyl [Vascepa] 2 gm PO BID 07/12/17 [History] Pregabalin [Lyrica] 300 mg PO BID 07/12/17 [History] Aspirin [Lo-Dose Aspirin EC] 81 mg PO DAILY 07/22/19 [History] Atorvastatin Calcium [Lipitor] 80 mg PO HS 07/22/19 [History] Lisinopril [Zestril] 40 mg PO DAILY 07/22/19 [History] Metformin HCl [Glucophage] 1,000 mg PO BID 07/22/19 [History] Insulin Degludec [Tresiba Flextouch U-200] 30 units SQ HS 30 Days #1 pack 08/04/19 [Rx] Sennosides/Docusate Sodium [Senna Plus] 1 each PO BID PRN tablet 08/04/19 [Rx] amLODIPine [Norvasc] 10 mg PO DAILY 30 Days #30 tablet 08/04/19 [Rx] ceFAZolin [Ancef] 2,000 mg IV Q8HR 36 Days #216 vial 08/04/19 [Rx] metroNIDAZOLE [Flagyl] 500 mg PO TID 36 Days #108 tablet 08/04/19 [Rx] Allergies/Adverse Reactions: Allergy/AdvReac Type Severity Reaction Status Date / Time No Known Allergies Allergy Verified 07/22/19 17:52 - Respiratory Orders Smoking Cessation: Smoking cessation has been advised. For more information, call the [place] [employer] Quit Line at 4-533-VMWS-NOW. - Lab Orders Lab Orders: CBC (weekly), Other (include drug levels w/frequency) (BMP, ESR, and CRP - weekly) - Ancillary Orders May use pressure relief devices daily prn - Advance Directives Code Status: Full Code - Mobility Orders Ambulate - Rehabiliation Orders Rehab Potential: Good Rehab Orders: ROM Exercises, Evaluation for Physical Therapy, Evaluation for Occ upational Therapy - Treatments Skin tear care topically daily PRN per policy - Diet Orders No Concentrated Sweets CERTIFICATION: I certify that the transfer of the above named patient to an Extended Care Facility is necessary for the continuing treatment of the diagnosis listed. The above information is true and accurate reflection of patient's current condition. Confidential - Redisclosure prohibited without a patient's written consent.
[2019-08-04 16:24] VITALS: BP 149/72
== END 2019-08-04 17:24 | DRG 617 ==
LOC: EMEROOARM 17:40 → 3NENU 17:40 → SUATTDRO 07-22 15:40 → 2ANU 07-25 16:31 → 2NNU 07-26 22:18 → 2ANU 07-30 11:00
PROVIDERS: ADMIT Pediatrics; ATTEND Student in an Organized Health Care Education/Training Program

== ENCOUNTER 2021-03-21 01:24 | Observation (INO) ==
[2021-03-21] MEDS ORDERED: Naloxone 0.4 MG/ML INJ IVP PRN (01:47)
[2021-03-21] MEDS ORDERED: Ondansetron 4 MG/2 ML VIAL IVP PRN (01:47)
[2021-03-21] MEDS ORDERED: Acetaminophen 325 MG TABLET PO PRN (01:47)
[2021-03-21] MEDS ORDERED: Dextrose Gel 15 GM/37.5 ML TUBE PO PRN ×2 (02:50)
[2021-03-21] MEDS ORDERED: D5% in Water 1,000 ML IVC PRN (02:50)
[2021-03-21] MEDS ORDERED: *HR* Dextrose 50 % in Water (Vial) 50 ML VIAL IVP PRN (02:50)
[2021-03-21] MEDS ORDERED: Perflutren Lipid Microsphere 1.3 ML in 0.9 % Sodium Chloride 8.7 ML IVP PRN (02:54)
[2021-03-21] MEDS ORDERED: Insulin LISPRO 300 UNITS/3 ML VIAL SUBQ SCH ×2 (03:00→07:30)
[2021-03-21] MEDS: Insulin LISPRO 300 UNITS/3 ML VIAL SUBQ SCH ×4 (03:06→20:43)
[2021-03-21 04:47] LABS: Basophils # 0.1 K/mcL (0.0-0.2); Basophils % 0.7 %; Eosinophils % 0.1 %; Hematocrit 42.2 % (37.5-50.1); Hemoglobin 14.4 g/dL (12.9-16.9); Immature Granulocytes % 1.3 % (0-4); Lymphocytes # 1.1 K/mcL (0.6-4.6); Lymphocytes % 7.4 %; Mean Corpuscular HGB Conc 34.1 g/dL (31.6-35.5); Mean Corpuscular Hemoglobin 30.1 pg (28.0-33.3); Mean Corpuscular Volume 88.1 fL (83.0-100.0); Mean Platelet Volume 12.8 fL (9.4-12.4); Monocytes # 0.6 K/mcL (0.0-1.3); Monocytes % 4.2 %; Neutrophils # 12.9 K/mcL (1.6-8.9); Platelet Count 243 K/mcL (140-400); Red Blood Count 4.79 M/mcL (4.19-5.50); Red Cell Distribution Width 12.9 % (11.5-14.5); Segmented Neutrophils % 86.3 %; White Blood Count 14.9 K/mcL (4.3-11.1)
[2021-03-21 04:57] LABS: Prothrombin Time 11.4 Seconds (9.4-12.1)
[2021-03-21 05:09] LABS: Alanine Aminotransferase 18 Units/L (7-52); Albumin 3.7 g/dL (3.5-5.7); Albumin/Globulin Ratio 1.3 (1.1-2.2); Alkaline Phosphatase 96 Units/L (34-104); Aspartate Amino Transferase 16 Units/L (13-39); BUN/Creatinine Ratio 25 (6-26); Bilirubin,Total 0.5 mg/dL (0.3-1.0); Blood Urea Nitrogen 18 mg/dL (8-23); Calcium 8.7 mg/dL (8.6-10.3); Carbon Dioxide 21 mEq/L (23-29); Chloride 101 mEq/L (98-107); Chol/HDL Ratio 7.6 (0-4.9); Cholesterol 242 mg/dL (< 200); Globulin 2.8 g/dL (2.4-3.5); Glucose 359 mg/dL (70-105); HDL Cholesterol 32 mg/dL (40-59); LDL Cholesterol,Calculated 154 mg/dL (< 100); Magnesium 1.8 mg/dL (1.6-2.6); Osmolality,Calculated 294 (280-300); Potassium 4.7 mEq/L (3.5-5.1); Sodium 134 mEq/L (136-145); Total Protein 6.5 g/dL (6.4-8.9); Triglycerides 281 mg/dL (< 150); eGFR For African Americans > 60 (> 60); eGFR For Non-African Americans > 60 (> 60)
[2021-03-21 05:27] LABS: Estimated Average Glucose 255 mg/dl; Hemoglobin A1C 10.5 %
[2021-03-21] MEDS: Aspirin 81 MG TAB.CHEW PO SCH (10:50)
[2021-03-21] MEDS: *HR* Enoxaparin 40 MG/0.4 ML SYRINGE SQ SCH (10:50)
[2021-03-21] MEDS ORDERED: Insulin DETEMIR 100 UNIT/ML X5UNITS SUBQ SCH ×2 (21:00)
[2021-03-21 23:24] LABS: Bilirubin,Urine Negative (Negative); Blood,Urine Trace (Negative); Clarity,Urine Clear (Clear); Color,Urine Yellow (Yellow); Glucose,Urine (UA) >=1000 mg/dL (Normal); Ketones,Urine 60 mg/dL (Negative); Leukocyte Esterase,Urine Negative (Negative); Mucus,Urine Few per lpf (None-Few); Nitrite,Urine Negative (Negative); Protein,Urine >=300 mg/dL (Neg-Trace); Specific Gravity,Urine > 1.030 (1.010-1.025); Squamous Epithelial Cell,Urine Few per hpf (None-Few)
[2021-03-22 05:06] LABS: Basophils # 0.1 K/mcL (0.0-0.2); Basophils % 1.2 %; Eosinophils # 0.3 K/mcL (0.0-0.6); Eosinophils % 2.7 %; Hematocrit 42.3 % (37.5-50.1); Hemoglobin 14.4 g/dL (12.9-16.9); Immature Granulocytes % 0.9 % (0-4); Lymphocytes % 27.5 %; Mean Corpuscular Hemoglobin 30.7 pg (28.0-33.3); Mean Corpuscular Volume 90.2 fL (83.0-100.0); Mean Platelet Volume 12.2 fL (9.4-12.4); Monocytes % 9.1 %; Neutrophils # 6.3 K/mcL (1.6-8.9); Platelet Count 227 K/mcL (140-400); Red Blood Count 4.69 M/mcL (4.19-5.50); Red Cell Distribution Width 13.2 % (11.5-14.5); Segmented Neutrophils % 58.6 %; White Blood Count 10.7 K/mcL (4.3-11.1)
[2021-03-22] MEDS: Insulin LISPRO 300 UNITS/3 ML VIAL SUBQ SCH ×2 (08:12→11:45)
[2021-03-22] MEDS: Aspirin 81 MG TAB.CHEW PO SCH (08:13)
[2021-03-22] MEDS: *HR* Enoxaparin 40 MG/0.4 ML SYRINGE SQ SCH (08:13)
[2021-03-22] MEDS ORDERED: lisinopriL 20 MG TABLET PO SCH (09:00)
[2021-03-22] MEDS ORDERED: amLODIPine 5 MG TABLET PO SCH (09:00)
[2021-03-22 11:17] VITALS: BP 155/76
== END 2021-03-22 14:03 | disposition home or self-care (01) ==
LOC: 3BNU → SUATTDRO 01:24
PROVIDERS: ADMIT Student in an Organized Health Care Education/Training Program; ATTEND Internal Medicine

== ENCOUNTER 2021-06-03 05:59 | Inpatient (IN) ==
[2021-06-03] MEDS ORDERED: Acetaminophen 325 MG TABLET PO PRN (09:19)
[2021-06-03] MEDS ORDERED: Ondansetron ODT 4 MG TAB.RAPDIS SL PRN (09:19)
[2021-06-03] MEDS ORDERED: Naloxone 0.4 MG/ML INJ IVP PRN (09:19)
[2021-06-03] MEDS ORDERED: *HR* Dextrose 50 % in Water (Vial) 50 ML VIAL IVP PRN (09:24)
[2021-06-03] MEDS ORDERED: Dextrose Gel 15 GM/37.5 ML TUBE PO PRN ×2 (09:24)
[2021-06-03] MEDS ORDERED: D5% in Water 1,000 ML IVC PRN (09:24)
[2021-06-03] MEDS: Insulin LISPRO 300 UNITS/3 ML VIAL SUBQ SCH ×3 (10:18→21:35)
[2021-06-03 11:46] LABS: Chol/HDL Ratio 4.7 (0-4.9)
[2021-06-03 11:48] LABS: VBG HCO3 27 mEq/L (21-27); VBG PCO2 43 mmHg (41-51); VBG PO2 82 mmHg (25-50)
[2021-06-03] MEDS: Lactulose Oral Soln 20 GM/30 ML UDC PO SCH ×2 (12:43→20:11)
[2021-06-03] MEDS ORDERED: Isovue-370 500 ML BOTTLE IVP ONE (14:56)
[2021-06-03] MEDS: Insulin DETEMIR 100 UNIT/ML X5UNITS SUBQ SCH (17:47)
[2021-06-03] MEDS ORDERED: Insulin DETEMIR 100 UNIT/ML X5UNITS SUBQ SCH (21:00)
[2021-06-04 06:47] LABS: Hematocrit 40.1 % (37.5-50.1); Hemoglobin 13.5 g/dL (12.9-16.9); Mean Corpuscular HGB Conc 33.7 g/dL (31.6-35.5); Mean Corpuscular Hemoglobin 30.3 pg (28.0-33.3); Mean Corpuscular Volume 89.9 fL (83.0-100.0); Mean Platelet Volume 11.7 fL (9.4-12.4); Platelet Count 239 K/mcL (140-400); Red Blood Count 4.46 M/mcL (4.19-5.50); Red Cell Distribution Width 13.3 % (11.5-14.5); White Blood Count 14.3 K/mcL (4.3-11.1)
[2021-06-04 07:07] LABS: BUN/Creatinine Ratio 20 (6-26); Blood Urea Nitrogen 13 mg/dL (8-23); Calcium 8.4 mg/dL (8.6-10.3); Carbon Dioxide 22 mEq/L (23-29); Chloride 99 mEq/L (98-107); Glucose 229 mg/dL (70-105); Osmolality,Calculated 277 (280-300); Sodium 130 mEq/L (136-145); eGFR For African Americans > 60 (> 60); eGFR For Non-African Americans > 60 (> 60)
[2021-06-04] MEDS: Insulin DETEMIR 100 UNIT/ML X5UNITS SUBQ SCH (08:02)
[2021-06-04] MEDS: Lactulose Oral Soln 20 GM/30 ML UDC PO SCH ×2 (08:02→23:37)
[2021-06-04] MEDS: Insulin LISPRO 300 UNITS/3 ML VIAL SUBQ SCH ×4 (08:04→20:46)
[2021-06-04] MEDS: Aspirin Enteric Coated 81 MG Tablet PO SCH (10:54)
[2021-06-05 05:55] LABS: Hematocrit 40.1 % (37.5-50.1); Hemoglobin 13.9 g/dL (12.9-16.9); Mean Corpuscular HGB Conc 34.7 g/dL (31.6-35.5); Mean Corpuscular Hemoglobin 30.5 pg (28.0-33.3); Mean Corpuscular Volume 88.1 fL (83.0-100.0); Mean Platelet Volume 11.8 fL (9.4-12.4); Platelet Count 258 K/mcL (140-400); Red Blood Count 4.55 M/mcL (4.19-5.50); Red Cell Distribution Width 13.2 % (11.5-14.5); White Blood Count 12.7 K/mcL (4.3-11.1)
[2021-06-05 06:15] LABS: Alanine Aminotransferase 16 Units/L (7-52); Albumin 3.8 g/dL (3.5-5.7); Albumin/Globulin Ratio 1.3 (1.1-2.2); Alkaline Phosphatase 93 Units/L (34-104); Aspartate Amino Transferase 18 Units/L (13-39); BUN/Creatinine Ratio 16 (6-26); Bilirubin,Total 1.2 mg/dL (0.3-1.0); Blood Urea Nitrogen 10 mg/dL (8-23); Calcium 8.7 mg/dL (8.6-10.3); Carbon Dioxide 23 mEq/L (23-29); Chloride 101 mEq/L (98-107); Globulin 2.9 g/dL (2.4-3.5); Glucose 188 mg/dL (70-105); Osmolality,Calculated 282 (280-300); Potassium 3.7 mEq/L (3.5-5.1); Sodium 134 mEq/L (136-145); Total Protein 6.7 g/dL (6.4-8.9); eGFR For African Americans > 60 (> 60); eGFR For Non-African Americans > 60 (> 60)
[2021-06-05] MEDS: lisinopriL 20 MG TABLET PO SCH (08:04)
[2021-06-05] MEDS: Lactulose Oral Soln 20 GM/30 ML UDC PO SCH ×2 (08:04→21:37)
[2021-06-05] MEDS: Aspirin Enteric Coated 81 MG Tablet PO SCH (08:04)
[2021-06-05] MEDS: Insulin LISPRO 300 UNITS/3 ML VIAL SUBQ SCH ×4 (08:05→19:48)
[2021-06-05] MEDS: Insulin DETEMIR 100 UNIT/ML X5UNITS SUBQ SCH (08:05)
[2021-06-05 14:35] LABS: Estimated Average Glucose 214 mg/dl; Hemoglobin A1C 9.1 %
[2021-06-06 03:23] LABS: Hematocrit 39.8 % (37.5-50.1); Mean Corpuscular HGB Conc 35.2 g/dL (31.6-35.5); Mean Corpuscular Volume 88.2 fL (83.0-100.0); Mean Platelet Volume 11.8 fL (9.4-12.4); Platelet Count 248 K/mcL (140-400); Red Blood Count 4.51 M/mcL (4.19-5.50); Red Cell Distribution Width 13.2 % (11.5-14.5); White Blood Count 12.5 K/mcL (4.3-11.1)
[2021-06-06 03:40] LABS: Alanine Aminotransferase 14 Units/L (7-52); Albumin 3.5 g/dL (3.5-5.7); Albumin/Globulin Ratio 1.3 (1.1-2.2); Alkaline Phosphatase 85 Units/L (34-104); Aspartate Amino Transferase 19 Units/L (13-39); BUN/Creatinine Ratio 16 (6-26); Bilirubin,Total 1.2 mg/dL (0.3-1.0); Blood Urea Nitrogen 10 mg/dL (8-23); Calcium 8.3 mg/dL (8.6-10.3); Carbon Dioxide 22 mEq/L (23-29); Chloride 98 mEq/L (98-107); Globulin 2.7 g/dL (2.4-3.5); Glucose 147 mg/dL (70-105); Osmolality,Calculated 276 (280-300); Potassium 3.4 mEq/L (3.5-5.1); Sodium 132 mEq/L (136-145); Total Protein 6.2 g/dL (6.4-8.9); eGFR For African Americans > 60 (> 60); eGFR For Non-African Americans > 60 (> 60)
[2021-06-06] MEDS: Aspirin Enteric Coated 81 MG Tablet PO SCH (09:35)
[2021-06-06] MEDS: amLODIPine 5 MG TABLET PO SCH (09:35)
[2021-06-06] MEDS: Lactulose Oral Soln 20 GM/30 ML UDC PO SCH ×2 (09:35→21:46)
[2021-06-06] MEDS: Insulin LISPRO 300 UNITS/3 ML VIAL SUBQ SCH ×4 (09:36→21:44)
[2021-06-06] MEDS: Insulin DETEMIR 100 UNIT/ML X5UNITS SUBQ SCH (09:39)
[2021-06-06] MEDS: lisinopriL 20 MG TABLET PO SCH (09:39)
[2021-06-07 06:21] LABS: Hematocrit 40.1 % (37.5-50.1); Hemoglobin 14.2 g/dL (12.9-16.9); Mean Corpuscular HGB Conc 35.4 g/dL (31.6-35.5); Mean Corpuscular Hemoglobin 30.7 pg (28.0-33.3); Mean Corpuscular Volume 86.8 fL (83.0-100.0); Mean Platelet Volume 11.5 fL (9.4-12.4); Platelet Count 253 K/mcL (140-400); Red Blood Count 4.62 M/mcL (4.19-5.50); White Blood Count 11.8 K/mcL (4.3-11.1)
[2021-06-07 06:39] LABS: Alanine Aminotransferase 12 Units/L (7-52); Albumin 3.4 g/dL (3.5-5.7); Albumin/Globulin Ratio 1.2 (1.1-2.2); Alkaline Phosphatase 91 Units/L (34-104); Aspartate Amino Transferase 16 Units/L (13-39); BUN/Creatinine Ratio 15 (6-26); Bilirubin,Total 1.1 mg/dL (0.3-1.0); Blood Urea Nitrogen 9 mg/dL (8-23); Calcium 8.3 mg/dL (8.6-10.3); Carbon Dioxide 23 mEq/L (23-29); Chloride 101 mEq/L (98-107); Globulin 2.8 g/dL (2.4-3.5); Glucose 138 mg/dL (70-105); Osmolality,Calculated 269 (280-300); Potassium 3.4 mEq/L (3.5-5.1); Sodium 129 mEq/L (136-145); Total Protein 6.2 g/dL (6.4-8.9); eGFR For African Americans > 60 (> 60); eGFR For Non-African Americans > 60 (> 60)
[2021-06-07] MEDS: amLODIPine 5 MG TABLET PO SCH (08:33)
[2021-06-07] MEDS: lisinopriL 20 MG TABLET PO SCH (08:33)
[2021-06-07] MEDS: Aspirin Enteric Coated 81 MG Tablet PO SCH (08:33)
[2021-06-07] MEDS: Insulin LISPRO 300 UNITS/3 ML VIAL SUBQ SCH ×4 (08:34→20:40)
[2021-06-07] MEDS: Lactulose Oral Soln 20 GM/30 ML UDC PO SCH ×2 (08:34→20:45)
[2021-06-07] MEDS: Insulin DETEMIR 100 UNIT/ML X5UNITS SUBQ SCH (08:46)
[2021-06-07 13:05] LABS: Sodium, Urine 28.5 mEq/L
[2021-06-08] MEDS: Insulin LISPRO 300 UNITS/3 ML VIAL SUBQ SCH ×4 (07:08→20:52)
[2021-06-08] MEDS: Aspirin Enteric Coated 81 MG Tablet PO SCH (08:21)
[2021-06-08] MEDS: amLODIPine 5 MG TABLET PO SCH (08:21)
[2021-06-08] MEDS: Lactulose Oral Soln 20 GM/30 ML UDC PO SCH ×2 (08:22→20:05)
[2021-06-08] MEDS: lisinopriL 20 MG TABLET PO SCH (08:22)
[2021-06-08] MEDS: Insulin DETEMIR 100 UNIT/ML X5UNITS SUBQ SCH (08:22)
[2021-06-08] MEDS: hydrALAZINE 25 MG TABLET PO SCH ×2 (12:25→16:44)
[2021-06-09] MEDS: hydrALAZINE 25 MG TABLET PO SCH ×3 (00:51→17:41)
[2021-06-09 03:46] LABS: BUN/Creatinine Ratio 18 (6-26); Blood Urea Nitrogen 11 mg/dL (8-23); Calcium 8.3 mg/dL (8.6-10.3); Carbon Dioxide 21 mEq/L (23-29); Chloride 98 mEq/L (98-107); Glucose 114 mg/dL (70-105); Magnesium 1.8 mg/dL (1.6-2.6); Osmolality,Calculated 268 (280-300); Potassium 3.4 mEq/L (3.5-5.1); Sodium 129 mEq/L (136-145); eGFR For African Americans > 60 (> 60); eGFR For Non-African Americans > 60 (> 60)
[2021-06-09] MEDS: Insulin LISPRO 300 UNITS/3 ML VIAL SUBQ SCH ×4 (07:29→22:10)
[2021-06-09] MEDS: Aspirin Enteric Coated 81 MG Tablet PO SCH (08:42)
[2021-06-09] MEDS: amLODIPine 5 MG TABLET PO SCH (08:42)
[2021-06-09] MEDS: lisinopriL 20 MG TABLET PO SCH (08:42)
[2021-06-09] MEDS: Lactulose Oral Soln 20 GM/30 ML UDC PO SCH ×2 (08:43→22:10)
[2021-06-09] MEDS: Insulin DETEMIR 100 UNIT/ML X5UNITS SUBQ SCH (08:44)
[2021-06-09] MEDS: carvediloL 6.25 MG TABLET PO SCH ×2 (12:15→17:41)
[2021-06-10] MEDS: hydrALAZINE 25 MG TABLET PO SCH ×3 (02:03→16:40)
[2021-06-10] MEDS: Insulin LISPRO 300 UNITS/3 ML VIAL SUBQ SCH ×4 (08:13→19:56)
[2021-06-10] MEDS: lisinopriL 20 MG TABLET PO SCH (09:16)
[2021-06-10] MEDS: Aspirin Enteric Coated 81 MG Tablet PO SCH (09:16)
[2021-06-10] MEDS: Lactulose Oral Soln 20 GM/30 ML UDC PO SCH ×2 (09:17→19:54)
[2021-06-10] MEDS: amLODIPine 5 MG TABLET PO SCH (09:17)
[2021-06-10] MEDS: carvediloL 6.25 MG TABLET PO SCH ×2 (09:17→16:40)
[2021-06-10] MEDS: Insulin DETEMIR 100 UNIT/ML X5UNITS SUBQ SCH (09:17)
[2021-06-11 00:27] VITALS: O2SAT 95
[2021-06-11] MEDS: hydrALAZINE 25 MG TABLET PO SCH ×3 (00:42→15:39)
[2021-06-11 06:22] LABS: BUN/Creatinine Ratio 17 (6-26); Blood Urea Nitrogen 11 mg/dL (8-23); Calcium 8.6 mg/dL (8.6-10.3); Carbon Dioxide 22 mEq/L (23-29); Chloride 101 mEq/L (98-107); Glucose 111 mg/dL (70-105); Osmolality,Calculated 272 (280-300); Sodium 131 mEq/L (136-145); eGFR For African Americans > 60 (> 60); eGFR For Non-African Americans > 60 (> 60)
[2021-06-11] MEDS: Insulin LISPRO 300 UNITS/3 ML VIAL SUBQ SCH ×2 (08:50→11:32)
[2021-06-11] MEDS: Aspirin Enteric Coated 81 MG Tablet PO SCH (08:52)
[2021-06-11] MEDS: carvediloL 6.25 MG TABLET PO SCH (08:52)
[2021-06-11] MEDS: lisinopriL 20 MG TABLET PO SCH (08:53)
[2021-06-11] MEDS: amLODIPine 5 MG TABLET PO SCH (08:53)
[2021-06-11] MEDS: Lactulose Oral Soln 20 GM/30 ML UDC PO SCH (08:58)
[2021-06-11] MEDS: Insulin DETEMIR 100 UNIT/ML X5UNITS SUBQ SCH (08:59)
[2021-06-11 11:25] VITALS: PULSE 74; TEMP 97.8
[2021-06-11 12:54] LABS: Adenovirus Not Detected (Not Detect); Bordetella Pertussis Not Detected (Not Detect); Chlamydophila pneumoniae Not Detected (Not Detect); Coronavirus 229E Not Detected (Not Detect); Coronavirus HKU1 Not Detected (Not Detect); Coronavirus NL63 Not Detected (Not Detect); Coronavirus OC43 Not Detected (Not Detect); Human Metapneumovirus Not Detected (Not Detect); Human Rhinovirus/Enterovirus Not Detected (Not Detect); Influenza A Subtype 2009 H1 Not Detected (Not Detect); Influenza B Not Detected (Not Detect); Mycoplasma pneumoniae Not Detected (Not Detect); Parainfluenza Virus 1 Not Detected (Not Detect); Parainfluenza Virus 2 Not Detected (Not Detect); Parainfluenza Virus 3 Not Detected (Not Detect); Parainfluenza Virus 4 Not Detected (Not Detect); Respiratory Syncytial Virus Not Detected (Not Detect); SARS-CoV-2 Not Detected (Not Detect)
[2021-06-11] MEDS ORDERED: *HR* Enoxaparin 40 MG/0.4 ML SYRINGE SQ ONE (13:47)
[2021-06-11 15:38] VITALS: BP 147/78
== END 2021-06-11 16:28 | disposition other institution (70) | DRG 64 ==
LOC: 2NENU → SUATTDRO 09:05
PROVIDERS: ADMIT Internal Medicine; ATTEND Internal Medicine

== ENCOUNTER 2022-05-20 16:00 | Inpatient (IN) ==
[2022-05-20] MEDS ORDERED: Naloxone 0.4 MG/ML INJ IVP PRN (20:47)
[2022-05-20] MEDS ORDERED: Ondansetron ODT 4 MG TAB.RAPDIS SL PRN (20:47)
[2022-05-20] MEDS ORDERED: Melatonin 3 MG TABLET PO PRN (20:47)
[2022-05-20] MEDS ORDERED: *HR* Dextrose 50 % in Water (Syg) 50 ML SYRINGE IVP PRN (20:50)
[2022-05-20] MEDS ORDERED: Dextrose Gel 15 GM/37.5 ML TUBE PO PRN ×2 (20:50)
[2022-05-20] MEDS ORDERED: D5% in Water 1,000 ML IVC PRN (20:50)
[2022-05-21] MEDS: Piperacillin/Tazobactam 3.375 GM in 0.9 % Sodium Chloride Mini Bag 100 ML IVPB SCH ×3 (00:32→17:29)
[2022-05-21] MEDS: Insulin LISPRO 300 UNITS/3 ML VIAL SUBQ SCH ×4 (01:52→17:31)
[2022-05-21 07:24] LABS: Basophils # 0.2 K/mcL (0.0-0.2); Basophils % 1.6 %; Eosinophils # 0.3 K/mcL (0.0-0.6); Eosinophils % 3.1 %; Hematocrit 36.1 % (37.5-50.1); Hemoglobin 12.4 g/dL (12.9-16.9); Immature Granulocytes % 0.7 % (0-4); Lymphocytes # 1.9 K/mcL (0.6-4.6); Lymphocytes % 20.8 %; Mean Corpuscular HGB Conc 34.3 g/dL (31.6-35.5); Mean Corpuscular Hemoglobin 30.1 pg (28.0-33.3); Mean Corpuscular Volume 87.6 fL (83.0-100.0); Mean Platelet Volume 12.6 fL (9.4-12.4); Monocytes # 1.6 K/mcL (0.0-1.3); Monocytes % 17.2 %; Neutrophils # 5.2 K/mcL (1.6-8.9); Platelet Count 274 K/mcL (140-400); Red Blood Count 4.12 M/mcL (4.19-5.50); Red Cell Distribution Width 12.3 % (11.5-14.5); Segmented Neutrophils % 56.6 %; White Blood Count 9.2 K/mcL (4.3-11.1)
[2022-05-21 07:47] LABS: Alanine Aminotransferase 15 Units/L (7-52); Albumin 3.4 g/dL (3.5-5.7); Albumin/Globulin Ratio 1.1 (1.1-2.2); Alkaline Phosphatase 92 Units/L (34-104); Aspartate Amino Transferase 14 Units/L (13-39); BUN/Creatinine Ratio 15 (6-26); Bilirubin,Total 0.9 mg/dL (0.3-1.0); Blood Urea Nitrogen 11 mg/dL (8-23); Carbon Dioxide 28 mEq/L (23-29); Chloride 100 mEq/L (98-107); Glucose 136 mg/dL (70-105); Magnesium 1.4 mg/dL (1.6-2.6); Osmolality,Calculated 281 (280-300); Phosphorous 3.9 mg/dL (2.7-4.5); Potassium 3.7 mEq/L (3.5-5.1); Sodium 135 mEq/L (136-145); Total Protein 6.4 g/dL (6.4-8.9); eGFR For African Americans > 60 (> 60); eGFR For Non-African Americans > 60 (> 60)
[2022-05-21] MEDS: carvediloL 6.25 MG TABLET PO SCH ×2 (08:26→17:29)
[2022-05-21] MEDS: FLUoxetine 20 MG CAPSULE PO SCH (08:27)
[2022-05-21] MEDS: amLODIPine 5 MG TABLET PO SCH (08:27)
[2022-05-21] MEDS: Aspirin Enteric Coated 81 MG Tablet PO SCH (08:27)
[2022-05-21] MEDS ORDERED: Gadolinium Contrast Agent (WT Based) IV PRN (11:52)
[2022-05-22] MEDS: Piperacillin/Tazobactam 3.375 GM in 0.9 % Sodium Chloride Mini Bag 100 ML IVPB SCH ×4 (00:42→23:50)
[2022-05-22] MEDS: Insulin LISPRO 300 UNITS/3 ML VIAL SUBQ SCH ×5 (00:42→23:51)
[2022-05-22 02:18] LABS: Basophils # 0.1 K/mcL (0.0-0.2); Basophils % 1.1 %; Eosinophils # 0.3 K/mcL (0.0-0.6); Eosinophils % 2.5 %; Hematocrit 35.8 % (37.5-50.1); Hemoglobin 12.2 g/dL (12.9-16.9); Immature Granulocytes % 0.6 % (0-4); Lymphocytes # 2.2 K/mcL (0.6-4.6); Lymphocytes % 21.5 %; Mean Corpuscular HGB Conc 34.1 g/dL (31.6-35.5); Mean Corpuscular Volume 88.2 fL (83.0-100.0); Mean Platelet Volume 12.5 fL (9.4-12.4); Monocytes # 1.2 K/mcL (0.0-1.3); Monocytes % 11.2 %; Neutrophils # 6.5 K/mcL (1.6-8.9); Platelet Count 260 K/mcL (140-400); Red Blood Count 4.06 M/mcL (4.19-5.50); Red Cell Distribution Width 12.4 % (11.5-14.5); Segmented Neutrophils % 63.1 %; White Blood Count 10.4 K/mcL (4.3-11.1)
[2022-05-22 02:32] LABS: BUN/Creatinine Ratio 18 (6-26); Blood Urea Nitrogen 14 mg/dL (8-23); Calcium 8.4 mg/dL (8.6-10.3); Carbon Dioxide 23 mEq/L (23-29); Chloride 99 mEq/L (98-107); Glucose 241 mg/dL (70-105); Magnesium 1.6 mg/dL (1.6-2.6); Osmolality,Calculated 280 (280-300); Potassium 3.7 mEq/L (3.5-5.1); Sodium 131 mEq/L (136-145); eGFR For African Americans > 60 (> 60); eGFR For Non-African Americans > 60 (> 60)
[2022-05-22 03:31] LABS: Estimated Average Glucose 260 mg/dl; Hemoglobin A1C 10.7 %
[2022-05-22] MEDS: carvediloL 6.25 MG TABLET PO SCH ×2 (08:09→17:29)
[2022-05-22] MEDS: amLODIPine 5 MG TABLET PO SCH (08:09)
[2022-05-22] MEDS: FLUoxetine 20 MG CAPSULE PO SCH (08:09)
[2022-05-22] MEDS: Aspirin Enteric Coated 81 MG Tablet PO SCH (08:09)
[2022-05-23] MEDS: Insulin LISPRO 300 UNITS/3 ML VIAL SUBQ SCH ×3 (06:04→22:45)
[2022-05-23 07:06] LABS: Basophils # 0.1 K/mcL (0.0-0.2); Basophils % 1.1 %; Eosinophils # 0.4 K/mcL (0.0-0.6); Eosinophils % 4.1 %; Hematocrit 34.9 % (37.5-50.1); Hemoglobin 11.8 g/dL (12.9-16.9); Immature Granulocytes % 0.8 % (0-4); Lymphocytes # 2.5 K/mcL (0.6-4.6); Lymphocytes % 27.7 %; Mean Corpuscular HGB Conc 33.8 g/dL (31.6-35.5); Mean Corpuscular Volume 88.8 fL (83.0-100.0); Mean Platelet Volume 12.3 fL (9.4-12.4); Monocytes # 1.1 K/mcL (0.0-1.3); Monocytes % 11.7 %; Platelet Count 286 K/mcL (140-400); Red Blood Count 3.93 M/mcL (4.19-5.50); Red Cell Distribution Width 12.3 % (11.5-14.5); Segmented Neutrophils % 54.6 %; White Blood Count 9.1 K/mcL (4.3-11.1)
[2022-05-23 07:25] LABS: BUN/Creatinine Ratio 15 (6-26); Blood Urea Nitrogen 12 mg/dL (8-23); Calcium 8.5 mg/dL (8.6-10.3); Carbon Dioxide 27 mEq/L (23-29); Chloride 103 mEq/L (98-107); Glucose 190 mg/dL (70-105); Magnesium 1.7 mg/dL (1.6-2.6); Osmolality,Calculated 289 (280-300); Potassium 3.8 mEq/L (3.5-5.1); Sodium 137 mEq/L (136-145); eGFR For African Americans > 60 (> 60); eGFR For Non-African Americans > 60 (> 60)
[2022-05-23] MEDS: amLODIPine 5 MG TABLET PO SCH (09:45)
[2022-05-23] MEDS: Aspirin Enteric Coated 81 MG Tablet PO SCH (09:45)
[2022-05-23] MEDS: FLUoxetine 20 MG CAPSULE PO SCH (09:46)
[2022-05-23] MEDS: carvediloL 6.25 MG TABLET PO SCH ×2 (09:47→17:36)
[2022-05-23] MEDS: Piperacillin/Tazobactam 3.375 GM in 0.9 % Sodium Chloride Mini Bag 100 ML IVPB SCH ×2 (10:35→17:37)
[2022-05-23] MEDS ORDERED: CeFAZolin Syr 2,000MG/20 ML 2,000 MG/20 ML SYRINGE IVPB ONE (11:24)
[2022-05-23] MEDS ORDERED: Lidocaine 1% 20 ML MDV ONE (11:28)
[2022-05-23] MEDS ORDERED: Ringers Solution, Lactated 1,000 ML IVC SCH (11:30)
[2022-05-23] MEDS ORDERED: Lidocaine -MPF 2% 2 ML VIAL ONE (11:48)
[2022-05-23] MEDS ORDERED: *HR* FentaNYL (PF) 100 MCG/2 ML VIAL ONE (11:48)
[2022-05-23] MEDS ORDERED: *HR* Propofol 200 MG/20 ML VIAL IVP ONE (11:48)
[2022-05-23] MEDS ORDERED: *HR* Midazolam HCl 2 MG/2 ML VIAL ONE (11:48)
[2022-05-23] MEDS ORDERED: Ondansetron 4 MG/2 ML VIAL ONE (11:48)
[2022-05-23] MEDS ORDERED: Dextrose Gel 15 GM/37.5 ML TUBE PO PRN ×4 (16:52→22:35)
[2022-05-23] MEDS ORDERED: Ondansetron ODT 4 MG TAB.RAPDIS SL PRN (16:52)
[2022-05-23] MEDS ORDERED: Gadolinium Contrast Agent (WT Based) IV PRN (16:52)
[2022-05-23] MEDS ORDERED: D5% in Water 1,000 ML IVC PRN ×2 (16:52→22:35)
[2022-05-23] MEDS ORDERED: Melatonin 3 MG TABLET PO PRN (16:52)
[2022-05-23] MEDS ORDERED: Naloxone 0.4 MG/ML INJ IVP PRN (16:52)
[2022-05-23] MEDS ORDERED: *HR* Dextrose 50 % in Water (Syg) 50 ML SYRINGE IVP PRN ×2 (16:52→22:35)
[2022-05-23] MEDS: Ringers Solution, Lactated 1,000 ML IVC SCH (17:38)
[2022-05-23] MEDS ORDERED: Insulin LISPRO 300 UNITS/3 ML VIAL SUBQ SCH (18:00)
[2022-05-24] MEDS ORDERED: Piperacillin/Tazobactam 3.375 GM in 0.9 % Sodium Chloride Mini Bag 100 ML IVPB SCH
[2022-05-24] MEDS: Piperacillin/Tazobactam 3.375 GM in 0.9 % Sodium Chloride Mini Bag 100 ML IVPB SCH ×3 (03:50→17:08)
[2022-05-24 06:28] LABS: Basophils # 0.1 K/mcL (0.0-0.2); Eosinophils # 0.2 K/mcL (0.0-0.6); Eosinophils % 1.6 %; Hematocrit 36.7 % (37.5-50.1); Hemoglobin 12.4 g/dL (12.9-16.9); Immature Granulocytes % 0.5 % (0-4); Lymphocytes % 18.2 %; Mean Corpuscular HGB Conc 33.8 g/dL (31.6-35.5); Mean Corpuscular Volume 88.6 fL (83.0-100.0); Mean Platelet Volume 11.7 fL (9.4-12.4); Monocytes # 1.3 K/mcL (0.0-1.3); Monocytes % 11.7 %; Neutrophils # 7.5 K/mcL (1.6-8.9); Platelet Count 321 K/mcL (140-400); Red Blood Count 4.14 M/mcL (4.19-5.50); Red Cell Distribution Width 12.2 % (11.5-14.5); White Blood Count 11.2 K/mcL (4.3-11.1)
[2022-05-24 06:50] LABS: BUN/Creatinine Ratio 11 (6-26); Blood Urea Nitrogen 8 mg/dL (8-23); Calcium 8.5 mg/dL (8.6-10.3); Carbon Dioxide 24 mEq/L (23-29); Chloride 99 mEq/L (98-107); Glucose 155 mg/dL (70-105); Magnesium 1.5 mg/dL (1.6-2.6); Osmolality,Calculated 277 (280-300); Potassium 3.7 mEq/L (3.5-5.1); Sodium 133 mEq/L (136-145); eGFR For African Americans > 60 (> 60); eGFR For Non-African Americans > 60 (> 60)
[2022-05-24] MEDS: FLUoxetine 20 MG CAPSULE PO SCH (09:00)
[2022-05-24] MEDS: Aspirin Enteric Coated 81 MG Tablet PO SCH (09:00)
[2022-05-24] MEDS: carvediloL 6.25 MG TABLET PO SCH ×2 (09:00→17:07)
[2022-05-24] MEDS: Insulin LISPRO 300 UNITS/3 ML VIAL SUBQ SCH ×4 (09:01→20:22)
[2022-05-24] MEDS: amLODIPine 5 MG TABLET PO SCH (09:01)
[2022-05-25] MEDS: Piperacillin/Tazobactam 3.375 GM in 0.9 % Sodium Chloride Mini Bag 100 ML IVPB SCH ×3 (01:39→17:57)
[2022-05-25] MEDS: Ringers Solution, Lactated 1,000 ML IVC SCH (05:37)
[2022-05-25 06:11] LABS: Basophils # 0.1 K/mcL (0.0-0.2); Basophils % 0.9 %; Eosinophils # 0.2 K/mcL (0.0-0.6); Eosinophils % 1.5 %; Hematocrit 32.8 % (37.5-50.1); Hemoglobin 11.2 g/dL (12.9-16.9); Immature Granulocytes % 0.7 % (0-4); Lymphocytes # 2.2 K/mcL (0.6-4.6); Lymphocytes % 20.3 %; Mean Corpuscular HGB Conc 34.1 g/dL (31.6-35.5); Mean Corpuscular Hemoglobin 30.4 pg (28.0-33.3); Mean Corpuscular Volume 88.9 fL (83.0-100.0); Monocytes # 1.6 K/mcL (0.0-1.3); Monocytes % 14.6 %; Neutrophils # 6.7 K/mcL (1.6-8.9); Platelet Count 277 K/mcL (140-400); Red Blood Count 3.69 M/mcL (4.19-5.50); Red Cell Distribution Width 12.3 % (11.5-14.5); White Blood Count 10.8 K/mcL (4.3-11.1)
[2022-05-25 06:28] LABS: BUN/Creatinine Ratio 14 (6-26); Blood Urea Nitrogen 11 mg/dL (8-23); Calcium 8.3 mg/dL (8.6-10.3); Carbon Dioxide 25 mEq/L (23-29); Chloride 100 mEq/L (98-107); Glucose 225 mg/dL (70-105); Magnesium 1.5 mg/dL (1.6-2.6); Osmolality,Calculated 280 (280-300); Potassium 3.3 mEq/L (3.5-5.1); Sodium 132 mEq/L (136-145); eGFR For African Americans > 60 (> 60); eGFR For Non-African Americans > 60 (> 60)
[2022-05-25 06:34] LABS: % Iron Saturation 10 % (20-55); Iron 21 mcg/dL (65-175); Transferrin 143 mg/dL (203-362)
[2022-05-25 06:47] LABS: Ferritin 371 ng/mL (20-250)
[2022-05-25] MEDS: amLODIPine 5 MG TABLET PO SCH (08:28)
[2022-05-25] MEDS: Aspirin Enteric Coated 81 MG Tablet PO SCH (08:29)
[2022-05-25] MEDS: carvediloL 6.25 MG TABLET PO SCH ×2 (08:29→16:10)
[2022-05-25] MEDS: FLUoxetine 20 MG CAPSULE PO SCH (08:29)
[2022-05-25] MEDS: Insulin LISPRO 300 UNITS/3 ML VIAL SUBQ SCH ×4 (08:54→21:20)
[2022-05-25] MEDS: Magnesium Oxide 400 MG TABLET PO SCH (10:27)
[2022-05-25] MEDS ORDERED: Vancomycin 1,750 MG/517.5 ML IV.SOLN IVPB ONE (14:52)
[2022-05-26] MEDS: Vancomycin 1,500 MG/265 ML IV.SOLN IVPB SCH ×2 (02:55→14:35)
[2022-05-26] MEDS: Piperacillin/Tazobactam 3.375 GM in 0.9 % Sodium Chloride Mini Bag 100 ML IVPB SCH ×3 (02:56→19:23)
[2022-05-26 05:41] LABS: Basophils # 0.1 K/mcL (0.0-0.2); Basophils % 1.2 %; Eosinophils # 0.3 K/mcL (0.0-0.6); Eosinophils % 2.3 %; Hemoglobin 10.9 g/dL (12.9-16.9); Immature Granulocytes % 0.9 % (0-4); Lymphocytes # 2.4 K/mcL (0.6-4.6); Lymphocytes % 21.7 %; Mean Corpuscular Hemoglobin 29.4 pg (28.0-33.3); Mean Corpuscular Volume 88.9 fL (83.0-100.0); Mean Platelet Volume 11.5 fL (9.4-12.4); Monocytes % 9.5 %; Platelet Count 298 K/mcL (140-400); Red Blood Count 3.71 M/mcL (4.19-5.50); Red Cell Distribution Width 12.3 % (11.5-14.5); Segmented Neutrophils % 64.4 %; White Blood Count 10.9 K/mcL (4.3-11.1)
[2022-05-26 06:55] LABS: BUN/Creatinine Ratio 14 (6-26); Blood Urea Nitrogen 9 mg/dL (8-23); Calcium 8.2 mg/dL (8.6-10.3); Carbon Dioxide 21 mEq/L (23-29); Chloride 105 mEq/L (98-107); Glucose 166 mg/dL (70-105); Magnesium 1.5 mg/dL (1.6-2.6); Osmolality,Calculated 282 (280-300); Potassium 3.6 mEq/L (3.5-5.1); Sodium 135 mEq/L (136-145); eGFR For African Americans > 60 (> 60); eGFR For Non-African Americans > 60 (> 60)
[2022-05-26] MEDS: FLUoxetine 20 MG CAPSULE PO SCH (08:28)
[2022-05-26] MEDS: carvediloL 6.25 MG TABLET PO SCH ×2 (08:28→19:21)
[2022-05-26] MEDS: Aspirin Enteric Coated 81 MG Tablet PO SCH (08:28)
[2022-05-26] MEDS: Magnesium Oxide 400 MG TABLET PO SCH (08:28)
[2022-05-26] MEDS: amLODIPine 5 MG TABLET PO SCH (08:28)
[2022-05-26] MEDS: Insulin LISPRO 300 UNITS/3 ML VIAL SUBQ SCH ×4 (08:31→21:59)
[2022-05-27 03:28] LABS: Basophils # 0.1 K/mcL (0.0-0.2); Basophils % 1.2 %; Eosinophils # 0.4 K/mcL (0.0-0.6); Eosinophils % 3.5 %; Hematocrit 31.9 % (37.5-50.1); Hemoglobin 10.9 g/dL (12.9-16.9); Immature Granulocytes % 0.9 % (0-4); Lymphocytes # 2.2 K/mcL (0.6-4.6); Mean Corpuscular HGB Conc 34.2 g/dL (31.6-35.5); Mean Corpuscular Hemoglobin 29.9 pg (28.0-33.3); Mean Corpuscular Volume 87.6 fL (83.0-100.0); Mean Platelet Volume 12.4 fL (9.4-12.4); Monocytes % 9.2 %; Neutrophils # 7.3 K/mcL (1.6-8.9); Platelet Count 337 K/mcL (140-400); Red Blood Count 3.64 M/mcL (4.19-5.50); Red Cell Distribution Width 12.3 % (11.5-14.5); Segmented Neutrophils % 65.2 %; White Blood Count 11.1 K/mcL (4.3-11.1)
[2022-05-27 03:41] LABS: BUN/Creatinine Ratio 13 (6-26); Blood Urea Nitrogen 10 mg/dL (8-23); Calcium 8.5 mg/dL (8.6-10.3); Carbon Dioxide 24 mEq/L (23-29); Chloride 101 mEq/L (98-107); Glucose 224 mg/dL (70-105); Magnesium 1.7 mg/dL (1.6-2.6); Osmolality,Calculated 282 (280-300); Potassium 3.8 mEq/L (3.5-5.1); Sodium 133 mEq/L (136-145); eGFR For African Americans > 60 (> 60); eGFR For Non-African Americans > 60 (> 60)
[2022-05-27] MEDS: Vancomycin 1,500 MG/265 ML IV.SOLN IVPB SCH ×2 (04:15→17:01)
[2022-05-27] MEDS: Piperacillin/Tazobactam 3.375 GM in 0.9 % Sodium Chloride Mini Bag 100 ML IVPB SCH ×2 (04:15→09:40)
[2022-05-27] MEDS: amLODIPine 5 MG TABLET PO SCH (09:22)
[2022-05-27] MEDS: Magnesium Oxide 400 MG TABLET PO SCH (09:23)
[2022-05-27] MEDS: Aspirin Enteric Coated 81 MG Tablet PO SCH (09:23)
[2022-05-27] MEDS: carvediloL 6.25 MG TABLET PO SCH ×2 (09:23→17:05)
[2022-05-27] MEDS: FLUoxetine 20 MG CAPSULE PO SCH (09:23)
[2022-05-27] MEDS: Insulin LISPRO 300 UNITS/3 ML VIAL SUBQ SCH ×4 (09:33→19:59)
[2022-05-27] MEDS ORDERED: Lidocaine -MPF 1% 5 ML AMPUL INFILT ONE (10:04)
[2022-05-28] MEDS: Vancomycin 1,500 MG/265 ML IV.SOLN IVPB SCH ×2 (04:02→16:00)
[2022-05-28 06:35] LABS: Basophils # 0.1 K/mcL (0.0-0.2); Basophils % 1.3 %; Eosinophils # 0.4 K/mcL (0.0-0.6); Eosinophils % 3.2 %; Hematocrit 32.9 % (37.5-50.1); Hemoglobin 11.1 g/dL (12.9-16.9); Immature Granulocytes % 0.5 % (0-4); Lymphocytes # 2.1 K/mcL (0.6-4.6); Lymphocytes % 19.2 %; Mean Corpuscular HGB Conc 33.7 g/dL (31.6-35.5); Mean Corpuscular Hemoglobin 29.8 pg (28.0-33.3); Mean Corpuscular Volume 88.2 fL (83.0-100.0); Mean Platelet Volume 11.2 fL (9.4-12.4); Monocytes # 1.1 K/mcL (0.0-1.3); Neutrophils # 7.3 K/mcL (1.6-8.9); Platelet Count 356 K/mcL (140-400); Red Blood Count 3.73 M/mcL (4.19-5.50); Red Cell Distribution Width 12.5 % (11.5-14.5); Segmented Neutrophils % 65.8 %; White Blood Count 11.1 K/mcL (4.3-11.1)
[2022-05-28 07:35] LABS: BUN/Creatinine Ratio 9 (6-26); Blood Urea Nitrogen 6 mg/dL (8-23); Calcium 8.6 mg/dL (8.6-10.3); Carbon Dioxide 26 mEq/L (23-29); Chloride 103 mEq/L (98-107); Glucose 190 mg/dL (70-105); Magnesium 1.5 mg/dL (1.6-2.6); Osmolality,Calculated 287 (280-300); Potassium 3.6 mEq/L (3.5-5.1); Sodium 137 mEq/L (136-145); eGFR For African Americans > 60 (> 60); eGFR For Non-African Americans > 60 (> 60)
[2022-05-28] MEDS: amLODIPine 5 MG TABLET PO SCH (08:27)
[2022-05-28] MEDS: Aspirin Enteric Coated 81 MG Tablet PO SCH (08:27)
[2022-05-28] MEDS: FLUoxetine 20 MG CAPSULE PO SCH (08:27)
[2022-05-28] MEDS: Magnesium Oxide 400 MG TABLET PO SCH (08:27)
[2022-05-28] MEDS: Insulin LISPRO 300 UNITS/3 ML VIAL SUBQ SCH ×4 (08:28→20:34)
[2022-05-28] MEDS: carvediloL 6.25 MG TABLET PO SCH ×2 (08:29→16:53)
[2022-05-29] MEDS: Vancomycin 1,500 MG/265 ML IV.SOLN IVPB SCH (04:17)
[2022-05-29] MEDS ORDERED: metroNIDAZOLE 500 MG TABLET PO SCH (09:00)
[2022-05-29] MEDS: carvediloL 6.25 MG TABLET PO SCH (09:20)
[2022-05-29] MEDS: Magnesium Oxide 400 MG TABLET PO SCH (09:20)
[2022-05-29] MEDS: Aspirin Enteric Coated 81 MG Tablet PO SCH (09:20)
[2022-05-29] MEDS: FLUoxetine 20 MG CAPSULE PO SCH (09:21)
[2022-05-29] MEDS: Insulin LISPRO 300 UNITS/3 ML VIAL SUBQ SCH ×2 (09:21→12:36)
[2022-05-29] MEDS: amLODIPine 5 MG TABLET PO SCH (09:21)
[2022-05-29 11:10] VITALS: BP 149/73; PULSE 67; TEMP 99.3; O2SAT 97
== END 2022-05-29 14:32 | disposition other institution (70) | DRG 629 ==
LOC: 4WAOSI → SUATTDRO 20:47
PROVIDERS: ADMIT Student in an Organized Health Care Education/Training Program; ATTEND Internal Medicine